=== PATIENT | female | born 1950 | race Caucasian/White ===

== ENCOUNTER 2024-12-26 14:01 | Outpatient (AMB) | payer MEDICARE, SELFPAY ==
--- NOTE | 2024-12-26 14:03 | MHC.OFFWIV ---
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 Allergies amoxicillin [AMOXICILLIN] Allergy (Unknown, Unverified 12/26/24 14:17) ANAPHYLAXIS clindamycin [CLINDAMYCIN] Allergy (Unknown, Unverified 12/26/24 14:17) NAUSEA & VOMITING codeine [CODEINE] Allergy (Unknown, Unverified 12/26/24 14:17) NAUSEA & VOMITING prochlorperazine [From COMPAZINE] Allergy (Unknown, Unverified 12/26/24 14:17) DRY MOUTH Do you need a note to return to daycare/school/sports/work: No HPI HPI Comments History of Present Illness Details History of Present Illness - The patient is a 74-year-old female presenting with a suspicious bite, concerned it could have been a tick. - The bite appeared on Wednesday with evaluation occurring on Wednesday. - The bite is not itchy or significantly painful, but the patient notices a presence at the site. - No recent activity in wooded areas; yard activity reported. - No signs suggestive of local infection were observed; patient reported she didn't actually see a tick attached. - Patient denies systemic symptoms such as fever or joint pain. - The patient is recovering from a recent rib injury. Physical Exam General: Cooperative, healthy appearing, comfortable, no acute distress and well developed Orientation: Patient oriented x3 Limitations: No limitations Head: Normal to inspection Ears: Hearing grossly normal bilaterally Nose: Normal External nose present Face and sinus: Normal facial exam Eyes: Appearance normal, both eyes and all related structures Neck: Normal visual inspection and Yes full ROM Respiratory: Normal respiratory effort and able to speak in complete sentences. Skin: right shoulder has 1cm area of erythema with central darkening, no erythema migrans rash, no warmth, no discharge noted Neuro: Patient oriented x3, gait normal Extremities: Normal to inspection Review of Systems Const All systems reviewed & are unremarkable except as noted in HPI and below Physical Exam Vital Signs: Last Vital Signs Pulse 65 12/26/24 14:18 BP 130/90 H 12/26/24 14:18 Pulse Ox 97 12/26/24 14:18 Oxygen Delivery Method Room Air 12/26/24 14:18 Assessment & Plan Assessment & Plan (1) Bug bite without infection: Code(s): W57.XXXA - Bitten or stung by nonvenomous insect and other nonvenomous arthropods, initial encounter Qualifiers: Encounter type: initial encounter Qualified Code(s): W57.XXXA - Bitten or stung by nonvenomous insect and other nonvenomous arthropods, initial encounter Plan: Plan - Administered prophylactic doxycycline 200 mg for possible tick bite. - Instructed to monitor for erythema migrans rash, fever, or joint pain. - Advised to seek further medical evaluation if systemic symptoms develop. Patient was informed and verbally consented to the use of an ambient scribe for clinic note documentation during this visit. Medications: New doxycycline hyclate 200 mg (2 x 100 mg) PO once 2 tabs 0RF tick bite ppx Coding Level of Care Code New Pt Level 3 (80754) Diagnoses Bug bite without infection, initial encounter W57.XXXA Encounter type: initial encounter
[2024-12-26 14:18] VITALS: BP 130/90; PULSE 65; O2SAT 97
--- OUTSIDE RECORDS SUMMARY | 2024-12-26 16:46 | XMS_ITS | Clinical Summary ---
Author Organization [facility] Address [address] [place] [phone] Phone Care Team Providers Care Industrial Sales Engineer Name Role Phone Tracee Chavez MD Primary Care Prov ider Allergies Active Allergy Reactions Criticality Noted Date Comments Amoxicillin Anaphylaxis High 10/08/2014 Clindamycin Hcl 09/30/2005 Codeine Nausea And Vomiting 12/26/2007 Other 09/30/2005 Medications aspirin 81 mg EC tablet 1 tab daily Active mirabegron (Myrbetriq) 50 mg tablet extended release 24 hr 24 hr tablet Take 1 tablet (50 mg total) by mouth 1 (one) time each day. 3 Active FLUoxetine (PROzac) 40 mg capsule TAKE 2 CAPSULES BY MOUTH DAILY 180 capsule 5 Active atorvastatin (LIPITOR) 40 mg tablet TAKE 1 TABLET BY MOUTH DAILY 90 tablet 1 5 Active traZODone (DESYREL) 100 mg tablet TAKE 1 TABLET BY MOUTH AT BEDTIME NEEDED FOR SLEEP 90 tablet 5 Active pantoprazole (PROTONIX) 20 mg EC tablet Take 1 tablet (20 mg total) by mouth 1 (one) time each day. 90 each 3 5 10/13/19 26 Active EPINEPHrine (EpiPen 2-David) 0.3 mg/0.3 mL injection Inject 0.3 mL as directed as needed (anaphylaxis). 1 each 1 5 Active amLODIPine (NORVASC) 5 mg tablet Take 1 tablet (5 mg total) by mouth. 5 Active diclofenac (VOLTAREN) 1 % topical gel Apply 4 g topically 2 (two) times a day. 100 g 2 5 Active lidocaine HCL 4 % adhesive patch,medicated Apply 1 patch topically 1 (one) time each day. For 12 hours and remove for 12 hours 20 patch 5 Active folic acid (FOLVITE) 1 mg tablet Take 1 tablet (1 mg total) by mouth. 5 Active thiamine HCl (VITAMIN B-1 ORAL) Take 100 mg by mouth. 5 02/04/20 25 Active Active Problems Problem Noted Date Diagnosed Date Common bile duct dilation 11/30/2024 Fibromyalgia 06/28/2024 Overview (06/28/2024): [place] [facility] [place] Primary insomnia 04/13/2024 Hepatic steatosis 02/25/2023 Overview (06/28/2024): US SOFT TISSUE ABDOMEN/BACK, LIMITED ABD Result Date: 02/17/2023 EXAM: Abdomen ultrasound limited. HISTORY: Elevated liver function tests. COMPARISON: 02/18/2018 FINDINGS: Exam limited by patient body habitus and also patient difficulty suspending respirations for imaging. Liver: Normal in size measuring 16.0 cm in craniocaudad extent. Chronic echogenic hepatic parenchyma. No significant interval change in geographic areas of relative hypoechogenicity adjacent to the gallbladder. No new mass detected. Gallbladder/Biliary Tree: Small amount of layering echogenic material in the gallbladder which likely represents sludge. No gallbladder wall thickening or pericholecystic fluid. No intra or extrahepatic biliary ductal dilatation. The common bile duct measures 0.6 cm. Pancreas: No abnormality in the visualized pancreas. Right kidney: Normal in size measuring 9.9 cm in craniocaudad extent. No hydronephrosis, focal lesions, or shadowing stones. Vasculature: Hepatopedal flow in the main portal vein. IMPRESSION IMPRESSION: Limited exam. Chronic abnormal hepatic parenchyma which is likely related to steatosis with areas of focal fatty sparing. Small amount of gallbladder sludge. POS [id number] Mild episode of recurrent ma nedra depressive disorder (CMS/HCC V24) 05/11/2019 Adjustment disorder with mixed anxiety and depre ssed mood 09/14/2018 Elevated glucose 12/21/2017 Female stress incontinence 07/30/2016 Thrombosed external hemorrhoid 09/26/2015 Panic disorder 10/23/2014 CKD (chronic kidney disease) stage 3, GFR 30-59 ml/min ([facility] V24, [facility] V28) 08/10/2014 Assessment & Plan (10/12/2024 12:00 PM EDT): Orders: Comprehensive metabolic panel; Future Lipid panel with reflex to direct LDL; Future Hyperlipidemia 08/24/2013 Vitamin D deficiency 01/25/2012 Osteoporosis 01/13/2012 Back pain 11/12/2008 GERD (gastroesophageal reflux disease) 7 Overview (06/28/2024): No esophagitis and no Levine's esophagus on upper GI endoscopy 2012. 3 cm hiatal hernia from 34-37 cm. Primary hypertension 04/13/2006 Assessment & Plan (10/12/2024 12:00 PM EDT): Bradycardia 02/08/2006 Overview (06/28/2024): Holter 03/04/06, Holter (-) lowest sinus glenn 39. no high grade arrythmia Coronary atherosclerosis of mash[place] coronary vess el 02/08/2006 Overview (06/28/2024): s/p stent 1999, RCA ECHO 2005: IMPRESSION: Normal left ventricular systolic function without specific wall motion abnormalities. Trace mitral regurgitation. Assessment & Plan (10/12/2024 12:00 PM EDT): Orders: Comprehensive metabolic panel; Future Lipid panel with reflex to direct LDL; Future Encounters Date Type Department Care Team Description 12/18/2024 1:45 PM EDT Consult General Surgery - [address] [place] [phone] Buster Villatoro MD Common bile duct dilation 11/30/2024 9:59 AM EDT - 11/30/2024 11:59 PM EDT Hospital Encounter Radiology Department - [address] [phone] Elevated liver enzymes Discharge Disposition: Home or Self Care 11/28/2024 Telephone Adult Medicine [address] [phone] Tracee Chavez MD faxed order ([facility] - #[id number], #[id number]) 11/21/2024 10:30 AM EDT Office Visit Adult Medicine [address] [phone] Tracee Chavez MD Hospital discharge follow-up (Primary Dx); Elevated liver enzymes; Hepatic steatosis; Rib injury; Other constipation; Oropharyngeal dysphagia; Primary hypertension 11/21/2024 Telephone Adult Medicine [address] [phone] Melony Max LPN Fitting for DME 11/15/2024 Telephone Adult Medicine [address] [phone] Tracee Chavez MD HOME HEALTH CERT 11/14/2024 Telephone Adult Medicine [address] [phone] Tracee Chavez MD faxed order ([facility] - #[id number]) 11/13/2024 Telephone Adult Medicine [address] [phone] Jessica Sousa MA [facility] 11/13/2024 Telephone Adult Medicine [address] [phone] Tracee Chavez MD vna 11/06/2024 Telephone Adult Medicine [address] [phone] Tracee Chavez MD VNA 11/06/2024 Telephone Adult Medicine [address] [place] [phone] Tracee Chavez MD Hospital Follow-up 10/31/2024 Lab Requisition [facility] - Main Lab [address] [facility] [place] [phone] Ruthy Nguyen NP Urinary tract infection, site not specified 10/25/2024 10:00 AM EDT Ancillary Procedure [facility] - [address] [place] [phone] Bilateral lower extremity edema 10/12/2024 11:30 AM EDT Office Visit Adult Medicine [facility] [address] [place] [phone] Tracee Chavez MD Encounter for annual general medical examination with abnormal findings in adult (Primary Dx); Primary hypertension; 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 (CMS/HCC V24); Recurrent major depressive disorder, in full remission (CMS/HCC V24); Stage 3a chronic kidney disease (CMS/HCC V24, CMS/HCC V28); Tremor; Decreased appetite; Advance care planning from Last 3 Months Immunizations Name Administration Dates Next Due Influenza trivalent, 0.5mL ( Fluad) 65yo and older 04/13/2024,06/03/2023,06/02/2022,04/22,04/25/2020,05/30/2019,05/05/2018 ,07/01/2017 Influenza trivalent, 0.5mL, preservative free (Fluarix; FluLaval; Fluzone) ages 6mo and older (Afluria) 3 years and older 03/30/2016,06/06/2015,04/13/2014,04/10,06/16/2012,06/14/2011,07/04/2010 ,04/05/2008,05/18/2007,06/27/2006,12/11/2004 Pneumococcal conjugate 13 va lent (Prevnar 13, PCV13) 2mo and older 07/01/2017 Pneumococcal polysaccharide 23 valent (Pneumovax 23) 2yo and older 08/25/2021 Td Tetanus diptheria (Tdvax) 7yo and older 03/18/2004 Td, Unspecified 03/18/2004 Tdap Tetanus diptheria acell ular pertussis (Boostrix; Adacel) 7yo and older 04/13/2024,01/13/2012 Zoster Live 06/16/2012 Surgical History Surgery Date Site/Laterality Comments OTHER SURGICAL HISTORY 1981 PROCEDURE: HISTORICAL TOTAL HYSTERECTOMY W/O BSO BREAST SURGERY 2013 Bilateral PROCEDURE: VT UNLISTED PROCEDURE BREAST; COMMENT: breast reduction BREAST BIOPSY Left PROCEDURE: BX BREAST; PERC NEEDLE CORE W/IMAG GUID; COMMENT: lt side, many yrs ago COLONOSCOPY 2013 PROCEDURE: HISTORICAL COLONOSCOPY; COMMENT: normal UPPER GASTROINTESTINAL ENDOSCOPY 2012 PROCEDURE: VT UPPER GI ENDOSCOPY PERFORMED; COMMENT: no esophagitis on PPI treatment; 3 cm HH. COLONOSCOPY 2001 PROCEDURE: HISTORICAL COLONOSCOPY; COMMENT: negative UPPER GASTROINTESTINAL ENDOSCOPY 01/31/2018 PROCEDURE: VT UPPER GI ENDOSCOPY PERFORMED; COMMENT: 3 cm HH; otherwise normal on PPI rx. BREAST BIOPSY Left PROCEDURE: BX BREAST; PERC NEEDLE CORE W/IMAG GUID; COMMENT: DENSE HYPOCELLULAR STROMAL FIBROSIS WITH FOCAL HEMOSIDERIN-LADEN Medical History Medical History Date Comments Coronary atherosclerosis of unspecified type of vessel, mash[place] or graft 02/08/2006 DX:Coronary atherosclerosis of unspecified type of vessel, mash[place] or graft; COMMENT: s/p stent 2000, RCA Other specified cardiac dysrhythmias(427.89) 02/08/2006 DX:Other specified cardiac dysrhythmias(427.89) Other specified cardiac dysrhythmias(427.89) 02/08/2006 DX:Other specified cardiac dysrhythmias(427.89); COMMENT: Holter 03/04/06, Holter 9-) lowest sinus glenn 39. no high grade arrythmia GERD (gastroesophageal reflu x disease) 05/19/2007 DX:GERD (gastroesophageal re flux disease) Back pain DX:Back pain; CO MMENT: followed by pain management, case Fibromyalgia DX:Fibromyalgia; COMMENT: [place] [facility] [place] Myofascial pain syndrome DX:Myof ascial pain syndrome; COMMENT: Dr. Horta [place] [facility] [place] Vitamin D deficiency 01/25/2012 DX:Vitamin D deficiency Panic disorder 10/23/2014 DX:Panic disorde r Osteoporosis 01/13/2012 DX:Osteoporosis Hypertension 04/13/2006 DX:Hypertension Hyperlipidemia 08/24/2013 DX:Hyperlipidemi a Depression, major, recurrent , in remission ([facility] V24) 07/05/2014 DX:Depression, major, recurr ent, in remission (HCC) CKD (chronic kidney disease) stage 3, GFR 30-59 ml/min (CMS/[facility] V24, CMS/[facility] V28) 08/10/2014 DX:CKD (chronic kidney disea se) stage 3, GFR 30-59 ml/min (HCC) History of other specified c onditions presenting hazards to health DX:History of other speci fied conditions presenting hazards to health; COMMENT: basal cell Hepatic steatosis 02/25/2023 DX:Hepatic get atosis; COMMENT: US SOFT TISSUE ABDOMEN/BACK, LIMITED ABD Result Date: 02/17/2023 EXAM: Abdomen ultrasound limited. HISTORY: Elevated liver function tests. COMPARISON: 02/18/2018 FINDINGS: Exam limited by patient body habitus and also patient difficulty suspending respirations for imaging. Liver: Normal in size measuring 16.0 cm in craniocaudad extent. Chronic echogenic hepatic paren* Family History Medical History Relation Name Comments Mental illness Father CABG age 76 Prostate cancer Father Heart attack Maternal Grandmother age 63 Lung cancer Mother Breast cancer Other pat cousin Heart attack Sister age 45, CABG ag e 53 Relation Name Status Comments Father (Age 82) heart prob lems, prostate ca Maternal Grandmother Mother (Age 80) heart prob lems, lung cancer Other pat cousin Sister Social History Tobacco Use Types Packs/Day Years Used Date Smoking Tobacco: Never Smokeless Tobacco: Never Tobacco Cessation:Counseling Given: Not Answered Alcohol Use Standard Drinks/Week Comments Yes 0 (1 standard drink = 0.6 oz pur e alcohol) Housing Instability Answer Date Recorde d Are you worried that in the next 2 months you may not have stable housing? No 10/12/2024 Food Access & Nutrition Answer Date Rec orded Do you have access to a vari ety of food including fruits and vegetables? Yes 10/12/2024 Access to Healthcare Answer Date Record ed Within the last 3 months, navi w many times did you visit the emergency department for your medical care? 0 10/12/2024 Health Literacy Answer Date Recorded How often do you need to hav e someone help you when you read instructions, pamphlets, or other written material from your doctor or pharmacy? Never 10/12/2024 Caregiver: How often do you need to have someone help you when you read instructions, pamphlets, or other written material from your doctor or pharmacy? Not on file 10/12/2024 Financial Risk Answer Date Recorded How hard is it for you to pa y for the very basics like food, housing, medical care, and air conditioning / heating? Not very hard 10/12/2024 Transportation Answer Date Recorded Has the lack of transportati on kept you from meetings, work, or from getting things needed for daily living? No Has the lack of transportati on kept you from medical appointments or from getting medications? No 10/12/2024 Social Isolation Answer Date Recorded How often do you feel lonely or isolated from th ose around you? Rarely 10/12/2024 Food Risk Answer Date Recorded Within the past 12 months we worried whether our food would run out before we got money to buy more. Never true 10/12/2024 Within the past 12 months th e food we bought just didn't last and we didn't have money to get more. Never true 10/12/2024 Dependent Care Answer Date Recorded Do you need help finding or paying for care for your loved ones. For example, child and youth program assistant or elderly care for an older adult? No 10/12/2024 Education Answer Date Recorded Do you think completing more education or training, like finishing a GED, going to college, or learning a trade, would be helpful for you? No 10/12/2024 Employment and Income Answer Date Recor ded During the last four weeks, have you been actively looking for work? No 10/12/2024 Living Situation Answer Date Recorded What is your living situation? 0 10/12/2024 Comments No Sex and Gender Information Value Date Recorded Sex Assigned at Not on file Legal Sex Female 7:23 PM EST Gender Identity Not on file Sexual Orientation Not on file Obstetrics History Last Filed Vital Signs Vital Sign Reading Time Taken Comments Blood Pressure 163/88 12/18/2024 1:38 PM EDT Pulse 65 12/18/2024 1:38 PM EDT Temperature 36.1 ??C (96.9 ??F) 11/21/2024 10:35 AM E DT Respiratory Rate 13 11/21/2024 10:35 AM EDT Oxygen Saturation - - Inhaled Oxygen Concentration - - Weight 48.5 kg (107 lb) 12/18/2024 1:38 PM EDT Height 156.2 cm (5' 1.5 ) 12/18/2024 1:38 PM EDT Body Mass Index 19.89 12/18/2024 1:38 PM EDT Plan of Treatment Upcoming Encounters Date Type Department Care Team (Late st Contact Info) Description 03/01/2025 2:20 PM EDT Appointment Radiology Department - [address] [phone] 04/17/2025 11:00 AM EDT Office Visit Adult Medicine East - [address] [phone] Tracee Chavez MD [address] [place] [address] [phone] Health Maintenance Due Date Last Done Comments Zoster Vaccines (2 of 3) 08/11/2012 06/16/2012 COVID-19 Vaccine ( season) 2024 06/23/2021, 10/14/2020, 09/23/2020 Depression Screening 10/12/2025 10/12/2024 Falls Risk Assessment 10/12/2025 10/12/2024 Medicare Annual Wellness Visit 10/12/2025 10/12/2024 Social Influencers of Health Screening 10/12/2025 10/12/2024 Hypertension/CHF/CAD Annual BMP Blood Test 11/30/2025 11/30/2024, 09/15/2023 Breast Cancer Screening 02/27/2026 02/28/20 24, 02/28/2024, 03/23/2023, Additional history exists Colorectal Cancer Screening: FIT-DNA (Cologuard) 06/21/2027 06/21/2024 Cholesterol Screening (Lipid Panel) 11/30/2029 11/30/2024, 02/02/2023 Osteoporosis Screening (Bone Density Screening) 02/22/2033 02/22/2023, 12/23/2016 DTaP,Tdap,and Td Vaccines (5 - Td or Tdap) 04/13/2034 04/13/2024, 01/13/2012, 03/18/2004, Additional history exists Hepatitis C Screening Completed 04/04/2013 Pneumococcal Vaccine: 50+ Years Completed 08/25/2021, 07/01/2017 RSV Immunization Adult Patients Completed 07/09/2023 Influenza Vaccine Completed 04/13/2024, , 06/02/2022, Additional history exists HIB Vaccines Aged Out No longer eligi ble based on patient's age to complete this topic HPV Vaccines Aged Out No longer eligi ble based on patient's age to complete this topic Hepatitis A Vaccines Aged Out No long er eligible based on patient's age to complete this topic Hepatitis B Vaccines Aged Out No long er eligible based on patient's age to complete this topic IPV Vaccines Aged Out No longer eligi ble based on patient's age to complete this topic MMR Vaccines Aged Out No longer eligi ble based on patient's age to complete this topic Meningococcal ACWY Vaccine Aged Out N o longer eligible based on patient's age to complete this topic Meningococcal B Vaccine Aged Out No l onger eligible based on patient's age to complete this topic RSV Immunization Patients Under 20 months Aged Out No longer eligible based on patient's age to complete this topic Varicella Vaccines Aged Out No longer eligible based on patient's age to complete this topic Procedures Procedure Name Priority Date/Time Associated Diagnosis Comments COMPREHENSIVE METABOLIC PANEL Routine 11/30/2024 10:26 AM EDT Tremor Stage 3a chronic kidney disease (CMS/HCC V24, CMS/HCC V28) 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 (CMS/HCC V24) LIPID PANEL WITH REFLEX TO DIRECT LDL Routine 11/30/2024 10:26 AM EDT Tremor Stage 3a chronic kidney disease (CMS/HCC V24, CMS/HCC V28) 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 (CMS/HCC V24) US ABDOMEN LIMITED Routine 11/30/2024 10 :19 AM EDT Elevated liver enzymes BACTERIAL IDENTIFICATION AND SUSCEPTIBILITY, AEROBIC Routine 10/30/2024 12:00 AM EDT Urinary tract infection, site not specified VAS US DUPLEX LOWER EXT VENOUS INSUFFICIENCY BILATERAL Routine 10/25/2024 10:48 AM EDT Bilateral lower extremity edema EXTERNAL COLOGUARD (FIT-DNA) REPORT 06/21/2024 SCREENING MAMMOGRAPHY BI 2-VIEW BREAST INC CAD Routine 02/28/2024 1:23 PM EDT Encounter for screening mammogram for malignant neoplasm of breast DXA BONE DENSITY STUDY 1+ SITS AXIAL SKEL Routine 02/22/2023 2:57 PM EDT Asymptomatic menopausal state HEPATITIS C SCREENING Routine 04/04/2013 from Last 3 Months or Most Recently Relevant to Health Maintenance Results * (ABNORMAL) Lipid panel with reflex to direct LDL (11/30/2024 10:26 AM EDT) Cholesterol 253(H) 0 - 200 mg/dL LAB CHEMISTRY METHOD 11/30/2024 1:[address] [facility] Triglycerides 175(H) 0 - 150 mg/dL LAB CHEMISTRY METHOD 11/30/2024 1:[address] [facility] HDL 30(L) >=40 mg/dL LAB CHEMISTRY METHOD 11/30/2024 1:[address] [facility] LDL Calculated 188(H) 0 - 100 mg/dL LAB CHEMISTRY METHOD 11/30/2024 1:[address] [facility] VLDL Cholesterol Richard 35 mg/dL LAB CHEMISTRY METHOD 11/30/2024 1:[address] [facility] Non HDL Chol. (LDL+VLDL) 223(H) <145 mg/dL LAB CHEMISTRY METHOD 11/30/2024 1:[address] [facility] Chol/HDL Ratio 8.4(H) 0.0 - 4.4 LAB CHEMISTRY METHOD 11/30/2024 1:[address] [facility] Blood Venous blood specimen / Unknown Venipuncture / Unknown 11/30/2024 10:26 AM EDT 11/30/2024 10:26 AM EDT us Tracee Chavez MD LAB BLOOD ORDERABL ES Final Result [facility] [address] [place] [address], * (ABNORMAL) Comprehensive metabolic panel (11/30/2024 10:26 AM EDT) Sodium 141 133 - 145 mmol/L LAB CHEMISTRY METHOD 11/30/2024 1:[address] [facility] Potassium 4.5 3.5 - 5.5 mmol/L LAB CHEMISTRY METHOD 11/30/2024 1:[address] [facility] Chloride 105 96 - 110 mmol/L LAB CHEMISTRY METHOD 11/30/2024 1:[address] [facility] CO2 27 21 - 32 mmol/L LAB CHEMISTRY METHOD 11/30/2024 1:[address] [facility] Anion Gap 9 3 - 11 LAB CHEMISTRY METHOD 11/30/2024 1:[address] [facility] Glucose 109(H) 70 - 100 mg/dL LAB CHEMISTRY METHOD 11/30/2024 1:[address] [facility] BUN 22 5 - 25 mg/dL LAB CHEMISTRY METHOD 11/30/2024 1:[address] [facility] Creatinine 1.03 0.50 - 1.10 mg/dL LAB CHEMISTRY METHOD 11/30/2024 1:[address] [facility] eGFR 58(L) >=60 mL/min/1. 73m2 LAB CHEMISTRY METHOD 11/30/2024 1:[address] [facility] Comment:Calculation based on the Chronic Kidney Disease Epidemiology Collaboration (CKD-EPI) equation refit without adjustment for race. BUN/Creatinine Ratio 21.4 LAB CHEMISTRY METHOD 11/30/2024 1:25 PM EDT [facility] Calcium 10.3 8.5 - 10.5 mg/dL LAB CHEMISTRY METHOD 11/30/2024 1:25 PM T [facility] AST (SGOT) 133(H) 10 - 42 unit/L LAB CHEMISTRY METHOD 11/30/2024 1:25 PM T [facility] ALT (SGPT) 125(H) 10 - 60 unit/L LAB CHEMISTRY METHOD 11/30/2024 1:25 PM EDT [facility] Alkaline Phosphatase 197(H) 42 - 121 unit/L LAB CHEMISTRY METHOD 11/30/2024 1:[address] [facility] Total Protein 7.3 6.0 - 8.0 g/dL LAB CHEMISTRY METHOD 11/30/2024 1:25 PM T [facility] Albumin 3.7 3.2 - 5.0 g/dL LAB CHEMISTRY METHOD 11/30/2024 1:25 PM T [facility] Total Bilirubin 0.5 0.0 - 1.4 mg/dL LAB CHEMISTRY METHOD 11/30/2024 1:[address] [facility] Blood Venous blood specimen / Unknown Venipuncture / Unknown 11/30/2024 10:26 AM EDT 11/30/2024 10:26 AM EDT us Tracee Chavez MD LAB BLOOD ORDERABL ES Final Result [facility] [address] [place] [address], * US Abdomen Limited (11/30/2024 10:19 AM EDT) Anatomical Region Laterality Modality Body Ultrasound 11/30/2024 3:52 PM EDT Impressions 11/30/2024 3:59 PM EDT Small amount of gallbladder sludge. ??New dilatation of the common bile duct measuring up to 1.0 cm. ??Suggest MRCP to assess for an obstructing process. POS [id number] -------- FINAL REPORT -------- Dictated By: Arlet Howard Dictated Date: 11/30/2024 15:52 ET Assigned Physician: Arlet Howard Reviewed and Electronically Signed By: Arlet Howard Signed Date: 11/30/2024 15:59 ET Workstation ID: [id number] Transcribed By: Self Edit Transcribed Date: 11/30/2024 15:52 ET Narrative 11/30/2024 3:59 PM EDT EXAM: Abdomen ultrasound, limited HISTORY: Elevated liver enzymes. COMPARISON: ??02/17/2023 FINDINGS: Liver: Normal in size measuring 16.6 cm in craniocaudad extent. ??Parenchymal echotexture appears within normal limits and is no longer echogenic. ??No mass detected. Gallbladder/Biliary Tree: Small amount of layering echogenic material in the gallbladder likely represents sludge. ??No gallbladder wall thickening or pericholecystic fluid. No intrahepatic biliary ductal dilatation. The common bile duct is now dilated measuring up to 1.0 cm. Pancreas: No abnormality in the visualized pancreas, portions are obscured by bowel gas. Right kidney: Normal in size measuring 9.3 cm in craniocaudad extent. ??No hydronephrosis, focal lesions, or shadowing stones. Vasculature: Hepatopedal flow in the main portal vein. Procedure Note Arlet Howard MD - 11/30/2024 EXAM: Abdomen ultrasound, limited HISTORY: Elevated liver enzymes. COMPARISON: 02/17/2023 FINDINGS: Liver: Normal in size measuring 16.6 cm in craniocaudad extent.Parenchymal echotexture appears within normal limits and is no longerechogenic. No mass detected. Gallbladder/Biliary Tree: Small amount of layering echogenic material inthe gallbladder likely represents sludge. No gallbladder wall thickeningor pericholecystic fluid. No intrahepatic biliary ductal dilatation. Thecommon bile duct is now dilated measuring up to 1.0 cm. Pancreas: No abnormality in the visualized pancreas, portions are obscuredby bowel gas. Right kidney: Normal in size measuring 9.3 cm in craniocaudad extent. Nohydronephrosis, focal lesions, or shadowing stones. Vasculature: Hepatopedal flow in the main portal vein. IMPRESSION: Small amount of gallbladder sludge. New dilatation of the common bileduct measuring up to 1.0 cm. Suggest MRCP to assess for an obstructingprocess. POS [id number] -------- FINAL REPORT -------- Dictated By: Arlet Howard Dictated Date: 11/30/2024 15:52 ET Assigned Physician: Arlet Howard Reviewed and Electronically Signed By: Arlet Howard Signed Date: 11/30/2024 15:59 ET Workstation ID: [id number] Transcribed By: Self Edit Transcribed Date: 11/30/2024 15:52 ET us Tracee Chavez MD IMG US PROCEDURES Final Result * (ABNORMAL) Bacterial identification and susceptibility, aerobic (10/30/2024 12:00 AM EDT) Culture, Bacterial ID and Sensitivity Escherichia coli(A) GIDEON 11/01/2024 8:46 AM EDT [facility] Other Urine specimen from urethra / Unknown 10/30/2024 10/31/2024 9:55 AM EDT Narrative Organism Antibiotic Method Susceptibility Escherichia coli Amoxicillin/Clavulanate GIDEON <=2 ug/ml: Susceptible Escherichia coli Ampicillin/Sulbactam GIDEON <=2 ug/ml: Susceptible Escherichia coli Piperacillin/Tazobactam GIDEON <=4 ug/ml: Susceptible Escherichia coli Cefazolin (Urine) GIDEON <=1 ug/ml: Susceptible Escherichia coli Cefoxitin GIDEON <=4 ug/ml: Susceptible Escherichia coli Ceftazidime GIDEON <=0.5 ug/ml: Susceptible Escherichia coli Ceftriaxone GIDEON <=0.25 ug/ml: Susceptible Escherichia coli Cefepime GIDEON <=0.12 ug/ml: Susceptible Escherichia coli Meropenem GIDEON <=0.25 ug/ml: Susceptible Escherichia coli Amikacin GIDEON 2 ug/ml: Susceptible Escherichia coli Gentamicin GIDEON <=1 ug/ml: Susceptible Escherichia coli Ciprofloxacin GIDEON <=0.06 ug/ml: Susceptible Escherichia coli Levofloxacin GIDEON <=0.12 ug/ml: Susceptible Escherichia coli Nitrofurantoin GIDEON <=16 ug/ml: Susceptible Escherichia coli Trimethoprim/Sulfamethoxazole GIDEON <=20 ug/ml: Susceptible Ruthy Nguyen MICROBIOLOGY INSTRUCTOR LAB MICROBIOLOGY - GENERA L ORDERABLES Final Result [facility] [address] [place] [address], * Vascular US duplex lower extremity venous insufficiency bilateral (10/25/2024 10:48 AM EDT) Left GSK jeanine 0.31 cm CV VAS LAB Left GSDC jeanine 0.18 cm CV VAS LAB Left GSMT jeanine 0.31 cm CV VAS LAB Left GSPC jeanine 0.22 cm CV VAS LAB Left GSPT jeanine 0.32 cm CV VAS LAB Left SFJ Diameter 0.54 cm CV VAS LAB Left SSMC jeanine 0.27 cm CV VAS LAB Left SSPC jeanine 0.33 cm CV VAS LAB Right GSK jeanine 0.41 cm CV VAS LAB Right GSDC jeanine 0.15 cm CV VAS LAB Right GSMT jeanine 0.26 cm CV VAS LAB Right GSPC jeanine 0.33 cm CV VAS LAB Right GSPT jeanine 0.26 cm CV VAS LAB Right SFJ Diameter 0.52 cm CV VAS LAB Right SSMC jeanine 0.22 cm CV VAS LAB Right SSPC jeanine 0.27 cm CV VAS LAB Right GSMT reflux 1,767 ms CV VAS LAB Right GSPC reflux 767 ms CV VAS LAB Left GSDC reflux 3,000 ms CV VAS LAB Anatomical Region Laterality Modality Vascular, Abdomen Ultrasound Narrative 10/30/2024 4:06 PM EDT RIGHT: 1. There is no evidence of a DVT in the right lower extremity 2. The SFJ, femoral vein, popliteal vein and SSV are competent 3. The GSV has clinically significant reflux as described below. 4. ??There is also a branch of the GSV with clinically significant reflux as described below. LEFT: 1. ??There is no evidence of a DVT in the left lower extremity. 2. The SFJ, femoral vein, popliteal vein and SSV are competent 3. ??The GSV has clinically significant reflux as described below. Right Lower Venous No evidence of deep vein thrombosis in the common femoral, deep femoral, proximal femoral, mid femoral, distal femoral, popliteal, greater saphenous, small saphenous, posterior tibial and peroneal veins of the right leg. The vessels showed compressibility. Interrogation showed phasic and spontaneous Doppler signals. Right Venous Insufficiency Duplex The exam was performed with the patient in reverse Trendelenburg. Refluxing right greater saphenous branch: 0.22cm diameter upper calf= 4060ms Left Lower Venous No evidence of deep vein thrombosis in the common femoral, deep femoral, proximal femoral, mid femoral, distal femoral, popliteal, greater saphenous, small saphenous, posterior tibial and peroneal veins of the left leg. The vessels showed compressibility. Interrogation showed phasic and spontaneous Doppler signals. Left Venous Insufficiency Duplex The exam was performed with the patient in reverse trendelenburg. Beef Selector Details A casillas scale, color and doppler analysis ultrasound was performed. During the study longitudinal and transverse views were obtained. Pulsed wave doppler was performed. us Noemy GONZALEZ CV VASCULAR PROCEDURES Final R esult * External Cologuard (FIT-DNA) Report (06/21/2024) us Provider Onbase MD LAB BODY FLUIDS AND STOOLS OR DERABLES Final Result * SCREENING MAMMOGRAPHY BI 2-VIEW BREAST INC CAD (02/28/2024 1:23 PM EDT) Anatomical Region Laterality Modality Radiographic Tammy ging 02/22/2023 3:14 PM EDT Narrative 02/29/2024 9:11 AM EDT This is a summary report. The complete report is available in the patient's medical record. If you cannot access the medical record, please contact the sending organization for a detailed fax or copy. History: Patient is status post left breast excisional biopsy in May 2023. ??Ultrasound-guided needle core biopsy on March 23, 2023 was thought to be discordant. ??Pathology results of the excisional biopsy were benign. Study: SCREENING MAMMOGRAPHY BI 2-VIEW BREAST INC CAD Technique: Bilateral full-field digital screening mammography is obtained and read in conjunction with computer aided detection. ??Tomosynthesis as well as 2D C-View imaging were obtained. Comparison: Comparison made to multiple priors, most recent February 22, 2023, and most remote January 31, 2013. Breast composition: There are scattered areas of fibroglandular density. Right breast: No suspicious masses, suspicious calcifications or other abnormalities are seen. Left breast: Postoperative changes. ??No suspicious masses, suspicious calcifications or other abnormalities are seen. IMPRESSION: Impression: Bilateral breasts: Benign, no specific mammographic evidence of malignancy. ??Normal interval follow-up is recommended in 12 months. BI-RADS: Category 2: Benign Procedure Note Sarah Helms MD - 05/03/2024 This is a summary report. The complete report is available in thepatient's medical record. If you cannot access the medical record, pleasecontact the sending organization for a detailed fax or copy. History: Patient is status post left breast excisional biopsy in May2023. Ultrasound-guided needle core biopsy on March 23, 2023 wasthought to be discordant. Pathology results of the excisional biopsy werebenign. Study: SCREENING MAMMOGRAPHY BI 2-VIEW BREAST INC CAD Technique: Bilateral full-field digital screening mammography is obtainedand read in conjunction with computer aided detection. Tomosynthesis aswell as 2D C-View imaging were obtained. Comparison: Comparison made to multiple priors, most recent February, and most remote January 31, 2013. Breast composition: There are scattered areas of fibroglandular density. Right breast: No suspicious masses, suspicious calcifications or otherabnormalities are seen. Left breast: Postoperative changes. No suspicious masses, suspiciouscalcifications or other abnormalities are seen. IMPRESSION: Impression: Bilateral breasts: Benign, no specific mammographic evidence ofmalignancy. Normal interval follow-up is recommended in 12 months. BI-RADS: Category 2: Benign Hattie GONZALEZ IMG XR PROCEDURES Final Result * DXA BONE DENSITY STUDY 1+ SITS AXIAL SKEL (02/22/2023 2:57 PM EDT) Anatomical Region Laterality Modality Bone Densitometr y 06/02/2022 11:2 4 AM EST Narrative 02/23/2023 4:25 PM EDT BONE DENSITY SCAN (DEXA): FINDINGS: Lumbar Spine T-score is -2.5. ?? (SD relative to 20-29 y/o adult) Z-score is -0.3. ??(SD relative to age matched peers) This is considered osteoporosis by WHO criteria. Left Hip T-score is -2.0. Z-score is -0.1. This is considered osteopenia by WHO criteria. Comparison exam(s): 12/23/2016. ??7.1% loss of left hip bone mineral density which is statistically significant at the 95% confidence level. ??No statistically significant change in lumbar spine bone mineral density. IMPRESSION: IMPRESSION: ?? Osteoporosis by WHO criteria. The [facility] Department of Internal Medicine recommends using National Osteoporosis Foundation (NOF) guidelines in treatment decisions related to osteoporosis. NOF guidelines suggest considering treatment for postmenopausal women and men aged 50 or older presenting with the following: History of hip or vertebral fracture. T-score = -2.5 (DXA) at the femoral neck, total hip, or spine, after appropriate evaluation to exclude secondary causes. Low bone mass (T-score between -1.0 and -2.5 at the femoral neck or spine) AND a 10-year probability of a hip fracture = 3% OR a 10-year probability of a major osteoporosis-related fracture = 20% based on the [place]-adapted WHO algorithm Please note that all treatment decisions require clinical judgment and consideration of individual patient factors, including patient preferences, co-morbidities, previous drug use, risk factors not captured in the FRAX model (e.g., frailty, falls, vitamin D deficiency, increased bone turnover, interval significant decline in bone density) and possible under- or over-estimation of fracture risk by FRAX. Optional alternative screening schedule based on sydney Guerra., [facility] August 06, 2011 for patients with osteopenia (based on hip BMD T-score) is as follows: * ??advanced osteopenia (T scores -2.00 to -2.49), BMD testing every year * ??moderate osteopenia (T scores -1.50 to -1.99), BMD testing every 5 years mild osteopenia or normal BMD (T scores -1.50 and higher), BMD testing every 15 years Procedure Note Arlet Howard MD - 08/24/2023 BONE DENSITY SCAN (DEXA): FINDINGS: Lumbar Spine T-score is -2.5. (SD relative to 20-29 y/o adult) Z-score is -0.3. (SD relative to age matched peers) This is considered osteoporosis by WHO criteria. Left Hip T-score is -2.0. Z-score is -0.1. This is considered osteopenia by WHO criteria. Comparison exam(s): 12/23/2016. 7.1% loss of left hip bone mineraldensity which is statistically significant at the 95% confidence level. No statisticallysignificant change in lumbar spine bone mineral density. IMPRESSION: IMPRESSION: Osteoporosis by WHO criteria. The [facility] Department of Internal Medicine recommendsusing National Osteoporosis Foundation (NOF) guidelines in treatment decisions related toosteoporosis. NOF guidelines suggest considering treatment for postmenopausal women and menaged 50 or older presenting with the following: History of hip or vertebral fracture. T-score = -2.5 (DXA) at the femoral neck, total hip, or spine, afterappropriate evaluation to exclude secondary causes. Low bone mass (T-score between -1.0 and -2.5 at the femoral neck or spine)AND a 10-year probability of a hip fracture = 3% OR a 10-year probability of a majorosteoporosis-related fracture = 20% based on the [place]-adapted WHO algorithm Please note that all treatment decisions require clinical judgment andconsideration of individual patient factors, including patient preferences, co- morbidities,previous drug use, risk factors not captured in the FRAX model (e.g., frailty, falls, vitaminD deficiency, increased bone turnover, interval significant decline in bone density) andpossible under- or over-estimation of fracture risk by FRAX. Optional alternative screening schedule based on sydney Guerra., [facility] for patients with osteopenia (based on hip BMD T-score) is as follows: * advanced osteopenia (T scores -2.00 to -2.49), BMD testing every year * moderate osteopenia (T scores -1.50 to -1.99), BMD testing every 5years mild osteopenia or normal BMD (T scores -1.50 and higher), BMD testingevery 15 years us Hattie GONZALEZ IMG DXA PROCEDURES Final Result * Hepatitis C Screening (04/04/2013) Hepatitis C Screening abstracted us Historical Provider HEALTH MAINTENANCE Final Result from Last 3 Months or Most Recently Relevant to Health Maintenance Insurance [employer] Care Teams Industrial Sales Engineer Relationship Specialty Start Date End Date Tracee Chavez MD [address] [place] [id number] PCP - General Internal Medicine 03/11/22
== END 2024-12-26 16:02 | disposition home or self-care (01) ==
PROVIDERS: PCP Internal Medicine; Visit Provider Physician Assistant
DX: T63.481A Toxic effect of venom of other arthropod, accidental (unintentional), initial encounter (principal)

== ENCOUNTER → 2024-12-26 14:01 | Outpatient (BNVA) | payer MEDICARE, SELFPAY | PROVIDERS: PCP Internal Medicine; Visit Provider Physician Assistant | DX: S40.261A Insect bite (nonvenomous) of right shoulder, initial encounter (principal); W57.XXXA Bitten or stung by nonvenomous insect and other nonvenomous arthropods, initial encounter; Y93.9 Activity, unspecified; Y92.9 Unspecified place or not applicable; Y99.9 Unspecified external cause status | CPT/HCPCS: 99202 ==

== ENCOUNTER 2025-01-13 12:58 | Outpatient (REF) | payer MEDICARE, SELFPAY ==
--- NOTE | ~2025-01-13 | XR_ITS ---
CLINICAL HISTORY: pain 1 view abdomen Comparison: None provided Findings: Surgical clips project over the pelvis. No pneumoperitoneum or pneumatosis. Normal stool quantity. No abnormal calcifications. No acute fractures. IMPRESSION: The bowel gas pattern is within normal limits This document has been electronically signed by: Scottie Mullins MD on 01/13/2025 15:04:56
== END 2025-01-13 12:59 | disposition home or self-care (01) ==
LOC: HO.HMGCX 12:58
PROVIDERS: PCP Internal Medicine; Visit Provider Family Medicine
DX: Z00.01 Encounter for general adult medical examination with abnormal findings (principal); R10.13 Epigastric pain; R10.11 Right upper quadrant pain; R11.2 Nausea with vomiting, unspecified
CPT/HCPCS: 74018; 99212

== ENCOUNTER 2025-01-13 12:58 | Outpatient (AMB) | payer MEDICARE, SELFPAY ==
--- OUTSIDE RECORDS SUMMARY | 2025-01-13 13:00 | XMS_ITS | Encounter Summary ---
Author Organization [facility] Address [address] [place] [address] Care Team Providers Care Steno Typist Name Role Phone Leonardo Gurrola MD Primary Care Provider Tracee Penaloza MD Primary Care Prov ider Reason for Visit * Reason Onset Date Comments Annual Wellness Outreach 05/12/2021 Encounter Details Date Type Department Care Team Description 05/12/2021 Telephone Adult Medicine [address] [address] Ravi Lazo DO Annual Wellness Outreach Social History Tobacco Use Types Packs/Day Years Used Date Smoking Tobacco: Never Smokeless Tobacco: Never Alcohol Use Standard Drinks/Week Comments Yes 0 (1 standard drink = 0.6 oz pur e alcohol) wine/ 2-3x month Sex Assigned at Date Recorded Not on file Job Start Date Occupation Industry Not on file Not on file Not on file COVID-19 Exposure Response Date Recorded In the last month, have you been in contact with someone who was confirmed or suspected to have Coronavirus / COVID-19? No / Unsure 05/05/2021 1:20 PM EDT documented as of this encounter Miscellaneous Notes * Telephone Encounter - Gwendolyn Estrada - 05/12/2021 3:38 PM EDT Ms. Giang was contacted by telephone. First attempt pt declined stated not thank you. documented in this encounter Plan of Treatment Not on file documented as of this encounter Visit Diagnoses Not on filedocumented in this encounter Care Teams Steno Typist Relationship Specialty Start Date End Date Leonardo Gurrola MD PCP - General Internal Medicine 10/16/11 03/10/22 Tracee Diaz MD [address] [place] [id number] PCP - General Internal Medicine 03/11/22 documented as of this encounter
--- NOTE | 2025-01-13 13:01 | AM.OFFWIN_ITS ---
Intake Vital Signs 01/13/25 13:06 Height 5 ft 1 in BMI Reason not done Patient refused/unable BP 122/80 Blood Pressure Location Lt brachial Position Sitting Pulse 68 Pulse Source Pulse Oximeter Temp 98.1 F Temp Source Oral Pulse Oximetry (%) 98 Oxygen Delivery Method Room Air Intake Visit Reasons: EP ?Stomach bug Allergies amoxicillin (AMOXICILLIN) Allergy (Unknown, Verified 01/13/25 13:01) ANAPHYLAXIS clindamycin (CLINDAMYCIN) Allergy (Unknown, Verified 01/13/25 13:01) NAUSEA & VOMITING codeine (CODEINE) Allergy (Unknown, Verified 01/13/25 13:01) NAUSEA & VOMITING prochlorperazine (From COMPAZINE) Allergy (Unknown, Verified 01/13/25 13:01) DRY MOUTH Medication List - Last Reconciled 01/13/25 by Jose Rodriguez MD amlodipine 5 mg PO DAILY atorvastatin 40 mg PO DAILY estradiol 0.01%(0.1mg/gram) vaginal fluoxetine mg PO hydrochlorothiazide 25 mg PO DAILY mirabegron ER 50 mg PO DAILY ondansetron 4 mg PO Q8H PRN 4 days pantoprazole 20 mg PO DAILY polyethylene glycol 3350 (Miralax) 17 grams PO DAILY 14 days trazodone 100 mg PO BEDTIME Do you need a note to return to daycare/school/sports/work: No HPI EP ?Stomach bug HPI Details Patient has complaints of epigastric and right upper quadrant abdominal discomfort as well as nausea and vomiting. Nausea and vomiting occur after eating passing gas but not much stool no fevers or chills Review of Systems Const Details: some weight loss due to nausea and poor appetite Denies chills, Denies fatigue, Denies fever(s), Denies headache(s) and Denies weakness ENT Denies dizziness and Denies headache(s) Card Denies chest pain, Denies lightheadedness, Denies dyspnea and Denies other (Palpitations) Resp Denies cough, Denies dyspnea, Denies wheezing and Denies other ( shortness of breath) Musc Denies numbness and Denies tingling Neuro Denies dizziness, Denies headache(s), Denies numbness, Denies tingling, Denies paresthesias and Denies weakness Psych Denies anxiety and Denies depression Endo Denies fatigue Aller/Immun Denies wheezing Physical Exam Vital Signs: Last Vital Signs Temp 98.1 F 01/13/25 13:06 Pulse 68 01/13/25 13:06 BP 122/80 01/13/25 13:06 Pulse Ox 98 01/13/25 13:06 Oxygen Delivery Method Room Air 01/13/25 13:06 Const General: no acute distress and well developed Nutritional Appearance: well nourished Orientation/consciousness: patient oriented x3 HEENT Head: Yes normocephalic and Yes atraumatic Eyes General: appearance normal, both eyes and all related structures Pupils: Equal, round and reactive pupils present EOM: EOMs intact bilaterally Resp Effort & Inspection: normal respiratory effort Auscultation: clear to auscultation bilaterally Cardio Rate: regular rate Rhythm: regular rhythm Heart sounds: S1 normal heart sound present, S2 normal heart sound present, no gallops, no murmurs and no rubs GI Other: mild abdominal discomfort at right upper quadrant Neuro General: patient oriented x3 and gait normal Cranial nerves: Yes Equal, round and reactive pupils present Psych Affect: normal affect Assessment & Plan Assessment & Plan (1) Abdominal discomfort: Code(s): R10.9 - Unspecified abdominal pain Plan: Abdominal discomfort and nausea associated with eating. Also decreased bowel movements but still passing gas possible significant constipation possible chronic cholecystitis advised bowel rest regimen with clear liquid diet today and advance diet as tolerated tomorrow. hydrate well Will give her a script for MiraLax and ondansetron checking CBC, lipase, CMP follow-up with primary care physician (2) Nausea: Code(s): R11.0 - Nausea Plan: As above Plan Discussed with patient that although we are addressing her acute issues of abdominal discomfort and nausea today, she would need to follow-up with her primary care physician for further workup and treatment. Orders: Orders XR KUB 01/13/25 R10.9 - Unspecified abdominal pain, R11.0 - Nausea Complete Blood Count Auto Diff 01/13/25 R10.9 - Unspecified abdominal pain, Z00.00 - Encounter for general adult medical examination without abnormal findings Comprehensive [place]. Panel Fast 01/13/25 R10.9 - Unspecified abdominal pain, Z00.00 - Encounter for general adult medical examination without abnormal findings Lipase 01/13/25 R10.9 - Unspecified abdominal pain Medications: New polyethylene glycol 3350 (Miralax) 17 grams PO DAILY 14 ea 0RF 14 days ondansetron 4 mg PO Q8H PRN 12 tabs 0RF nausea and vomiting 4 days Coding Level of Care Code Est Pt Level 3 (82549) Diagnoses Abdominal discomfort R10.9 Nausea R11.0
[2025-01-13 13:06] VITALS: BP 122/80; PULSE 68; TEMP 36.7; O2SAT 98
== END 2025-01-13 14:38 | disposition home or self-care (01) ==
PROVIDERS: PCP Internal Medicine; Visit Provider Family Medicine
DX: R10.9 Unspecified abdominal pain (principal); R11.0 Nausea

== ENCOUNTER → 2025-01-13 13:44 | Outpatient (BNV) | payer MEDICARE, SELFPAY | PROVIDERS: PCP Internal Medicine; Visit Provider Radiology Diagnostic Radiology | DX: R10.84 Generalized abdominal pain (principal) | CPT/HCPCS: 74018 ==

== ENCOUNTER 2025-01-15 10:47 | Outpatient (REF) | payer MEDICARE, SELFPAY ==
[2025-01-15 13:13] LABS: MANUAL DIFF FLAG NO
[2025-01-15 13:23] LABS: Basophils Absolute Auto 0.1 X10*3/uL (0.0-0.2); Basophils Percent Auto 0.9 % (0-2); Eosinophils Absolute Auto 0.2 X10*3/uL (0.0-0.4); Hematocrit 41.8 % (37.0-47.0); Hemoglobin 13.7 g/dl (12.0-16.0); Imm Gran Abs Auto 0.03 X10*3/uL (0.00-0.03); Imm Gran Pct Auto 0.3 % (0.0-0.4); Lymphocytes Absolute Auto 2.3 X10*3/uL (1.2-4.9); Lymphocytes Percent Auto 26.7 % (20-40); Mean Corpuscular HGB Conc 32.8 g/dl (31.0-35.0); Mean Corpuscular Hemoglobin 30.6 pg (27.0-33.0); Mean Corpuscular Volume 93.3 fL (80.0-98.0); Mean Platelet Volume 11.9 fL (9.4-12.3); Monocytes Absolute Auto 0.6 X10*3/uL (0.1-1.2); Monocytes Percent Auto 6.7 % (2-11); Neutrophils Absolute Auto 5.5 x10*3/uL (2.0-8.3); Neutrophils Percent Auto 63.4 % (45-73); Platelet Count 274 X10*3/uL (160-400); Red Blood Count 4.48 X10*6/uL (4.20-5.50); Red Cell Distribution Width 13.2 % (11.0-16.0); White Blood Count 8.6 X10*3/uL (4.8-10.8)
[2025-01-15 13:50] LABS: Alanine Aminotransferase 50 U/L (0-31); Albumin Level 4.5 g/dL (3.5-5.0); Alkaline Phosphatase 169 U/L (39-117); Anion Gap 12 (12-20); Aspartate Amino Transferase 83 U/L (5-31); Bilirubin Total 0.4 mg/dL (0.0-1.0); Blood Urea Nitrogen 24 mg/dL (9-16); Carbon Dioxide 24 mmol/L (22-29); Chloride 107 mmol/L (96-108); Estimated Glomerular Filt Rate 45; Glucose Fasting 141 mg/dL (60-99); Lipase 7 U/L (8-78); Potassium 4.4 mmol/L (3.3-5.1); Sodium 139 mmol/L (135-145); Total Protein 7.6 g/dL (6.5-8.0)
== END 2025-01-15 10:48 | disposition home or self-care (01) ==
LOC: HO.HMGCLDS 10:47
PROVIDERS: PCP Family Medicine; Visit Provider Family Medicine
DX: Z00.00 Encounter for general adult medical examination without abnormal findings (principal); R10.9 Unspecified abdominal pain
CPT/HCPCS: 36415; 80053; 83690; 85025

== ENCOUNTER 2025-04-20 19:13 | Inpatient (IN) | payer MEDICARE, SELFPAY ==
--- OUTSIDE RECORDS SUMMARY | 2025-04-17 11:00 | XMS_ITS | Encounter Summary ---
Author Organization [facility] Address [address] [place] [address] Care Team Providers Care Record Tester Name Role Phone Tracee Chavez MD Primary Care Prov ider Reason for Referral * Consultation (Routine) - Authorized Specialty Diagnoses / Procedures Referred By Contac t Referred To Contact Cardiology Diagnoses Mixed hyperlipidemia Tracee Chavez MD [address] [place] [address] Phone: tel: fax: [facility] [address] [facility] [address] [place] [address] Phone: tel: fax: Referral ID Status Reason Start Date Expiration Date Visits Requested Visits Authorized [id number] Authorized Specialty Services Required 04/17/2025 04/17/2026 1 1 Reason for Visit * Reason Comments Follow-up Encounter Details Date Type Department Care Team ([facility] st Contact Info) Description 04/17/2025 11:00 AM EDT Office Visit Adult Medicine [address] [phone] Tracee Chavez MD [address] [place] [address] Primary hypertension (Primary Dx); Mixed hyperlipidemia; 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 For example, childcare administrator or elderly care for an older adult? [...] Date Recorded What is your living situation? Unrecognized valu e 10/12/2024 Comments No Sex and Gender Information Value Date Recorded Sex Assigned at Not on file Legal Sex Female 7:23 PM EST Gender Identity Not on file Sexual Orientation Not on file documented as of this encounter Last Filed Vital Signs Vital Sign Reading Time Taken Comments Blood Pressure 179/95 04/17/2025 10:59 AM EDT Pulse 58 04/17/2025 10:53 AM EDT Temperature 36.3 C (97.4 F) 04/17/2025 10:53 AM EDT Respiratory Rate 14 04/17/2025 10:53 AM EDT Oxygen Saturation 98% 04/17/2025 10:53 AM EDT Inhaled Oxygen Concentration - - Weight 47.6 kg (105 lb) 04/17/2025 10:53 AM EDT Height 156.2 cm (5' 1.5 ) 04/17/2025 10:53 AM ED T Body Mass Index 19.52 04/17/2025 10:53 AM EDT documented in this encounter Ordered Prescriptions Prescription Sig Dispense Quantity Refills Last Filled Start Date End Date amLODIPine (NORVASC) 10 mg tablet Take 1 tablet (10 mg total) by mouth 1 (one) time each day. 30 each 2 04/17/2025 07/16/2025 documented in this encounter Progress Notes * Tracee Chavez MD - 04/17/2025 11:00 AM EDTAssociated Problem(s): Primary hypertension Hypertension is not well controlled today. 179/95, repeat 160/90 Currently on Amlodipine 5mg. Will increase the dose to 10mg and follow up in one month. Patient is encouraged to follow a low-salt diet and exercise regularly. * Tracee Chavez MD - 04/17/2025 11:00 AM EDTAssociated Problem(s): Hyperlipidemia Last LDL 188. Not on statins due to abnormal LFT's. Previously referred to cardiology but not seen.Will place a new referral today. * Tracee Chavez MD - 04/17/2025 11:00 AM EDTAssociated Problem(s): Mild episode of recurrent major depressive disorder (CMS/HCC V24) Patient currently taking trazodone 100 mg at night, fluoxetine 80 mg a day. Symptoms have been wellcontrolled. Denies any SI, HI. Good level of performance. We will continue same regimen * Tracee Chavez MD - 04/17/2025 11:00 AM EDT PLEASE RESCHEDULE APPOINTMENT WITH GASTROENTEROLOGY. NEW REFERRAL WAS PLACED FOR CARDIOLOGY. * Tracee Chavez MD - 04/17/2025 11:00 AM EDT Images from the original note were not included. Chief Complaint Margie Giang is a 74 y.o. female presenting for Follow-up Subjective Patient with a pmh of HTN, depression, CAD, CKD, comes for med review. Feels well, compliant with medications, does not follow any special diet, exercises regularly. States she feels well. Recently evaluated by surgery for intrahepatic biliary ductal dilation. MRI was performed and referred to GI. It looks like she cancelled the appt. Not seen yet. She also has elevated cholesterol but not taking statin for abnormal LFT's The following portions of the patient's history were reviewed by a provider in this encounter and updated as appropriate: Allergies: She is allergic to amoxicillin, clindamycin hcl, codeine, and other. Medications: Current Outpatient Medications Medication Instructions amLODIPine (NORVASC) 5 mg, oral, Daily aspirin 81 mg EC tablet 1 tab daily atorvastatin (LIPITOR) 40 mg, oral, Daily EPINEPHrine (EpiPen 2-David) 0.3 mg/0.3 mL injection Inject 0.3 mL as directed as needed (anaphylaxis). FLUoxetine (PROZAC) 80 mg, oral, Daily mirabegron (Myrbetriq) 50 mg tablet extended release 24 hr 24 hr tablet 1 tablet, Daily pantoprazole (PROTONIX) 20 mg, oral, Daily traZODone (DESYREL) 100 mg, oral, Nightly PRN, at bedtime for sleep Objective BP (!) 179/95 Pulse 58 Temp 36.3 ??C (97.4 ??F) Resp 14 Ht 1.562 m (61.5 ) Wt 47.6 kg (105 lb) BMI 19.52 kg/m?? SpO2: 98 % Physical Exam Vitals reviewed. Constitutional: Appearance: Normal appearance. Cardiovascular: Rate and Rhythm: Normal rate and regular rhythm. Heart sounds: Normal heart sounds. Pulmonary: Effort: Pulmonary effort is normal. Breath sounds: Normal breath sounds. Musculoskeletal: General: No swelling. Normal range of motion. Cervical back: Neck supple. Skin: General: Skin is warm. Neurological: General: No focal deficit present. Mental Status: She is alert. Assessment/Plan Assessment & Plan Primary hypertension Hypertension is not well controlled today. 179/95, repeat 160/90 Currently on Amlodipine 5mg. Will increase the dose to 10mg and follow up in one month. Patient is encouraged to follow a low-salt diet and exercise regularly. Mixed hyperlipidemia Last LDL 188. Not on statins due to abnormal LFT's. Previously referred to cardiology but not seen.Will place a new referral today. Mild episode of recurrent major depressive disorder (CMS/HCC V24) Patient currently taking trazodone 100 mg at night, fluoxetine 80 mg a day. Symptoms have been wellcontrolled. Denies any SI, HI. Good level of performance. We will continue same regimen All questions and concerns were addressed. Patient verbalizes understanding and agrees with above treatment plan. Patient was advised to contact the office with any worsening symptoms or if new or existing problems arise. Patient to follow- up in 1 month. I have applied the code G2211 to this patient???s visit as the primary care provider, associated with longitudinal, non-procedural care. Our team has an ongoing relationship with the patient in the management of her medical conditions. Tracee Cleaning MD ADULT MEDICINE [address] Dept: [phone] Dept Date of Visit: 04/17/2025 documented in this encounter Plan of Treatment Upcoming Encounters Date Type Department Care Team (Late st Contact Info) Description 05/22/2025 11:15 AM EST Office Visit [address] [phone] Tracee Chavez MD [address] [place] [address] Scheduled Referrals Name Type Priority Associated Diagnoses Orde r Schedule Ambulatory referral to Cardiology Outpatient Referral Routine Mixed hyperlipidemia 1 Occurrences starting 04/17/2025 until 04/17/2026 documented as of this encounter Visit Diagnoses Diagnosis Primary hypertension- Primary Unspecified essential hypertension Mixed hyperlipidemia Mild episode of recurrent major depressive disorder (CMS/HCC V24) documented in this encounter Discontinued Medications Medication Sig Discontinue Reason Start Date End Da te diclofenac (VOLTAREN) 1 % topical gel Apply 4 g topically 2 (two) times a day. Therapy completed 11/21/2024 04/17/2025 lidocaine HCL 4 % adhesive patch,medicated Apply 1 patch topically 1 (one) time each day. For 12 hours and remove for 12 hours Therapy completed 11/21/2024 04/17/2025 folic acid (FOLVITE) 1 mg tablet Take 1 tablet (1 mg total) by mouth. Therapy completed 11/05/2024 04/17/2025 atorvastatin (LIPITOR) 40 mg tablet TAKE 1 TABLET BY MOUTH DAILY Therapy completed 10/11/2024 04/17/2025 amLODIPine (NORVASC) 5 mg tablet Take 1 tablet (5 mg total) by mouth 1 (one) time each day. 02/13/2025 04/17/2025 documented as of this encounter Additional Health Concerns Assessment Noted Time PHQ-9 Depression Total Score: 2 10/13/19 25 11:12 AM EDT documented as of this encounter Care Teams Record Tester Relationship Specialty Start Date End Date Tracee Chavez MD [address] [place] [phone] PCP - General Internal Medicine 03/11/22 documented as of this encounter
--- NOTE | ~2025-04-20 | CT_ITS ---
EXAMINATION: CT ABDOMEN PELVIS WITH IV CONTRAST HISTORY: s/p lap leticia, ?ascites COMPARISON: Comparison is made with the prior examination dated 04/20/2025. TECHNIQUE: CT scan of the abdomen and pelvis was performed following administration of 85 mL Omnipaque 350 using standard departmental protocol. Coronal and sagittal reformatted images were generated and reviewed. This CT exam was performed with one or more of the following dose reduction techniques: automated exposure control, adjustment of the mA and/or kV according to patient size, use of iterative reconstruction technique. DLP: 250 mGy-cm FINDINGS: LOWER CHEST: There is subsegmental atelectasis at the lung bases. There is no pleural effusion. CARDIOVASCULATURE: The heart is normal in size. There is no pericardial effusion. LIVER: The liver is enlarged. No liver mass is identified. The hepatic and portal veins are patent. There is mild periportal edema. GALLBLADDER / BILE DUCTS: The patient is status post interval cholecystectomy. A DENNIS drain is noted with its tip in the region of the fissure for the ligamentum teres. There is amorphous fluid and gas attenuation in the gallbladder fossa which may represent packing material. No rim-enhancing collection. The common bile duct is dilated measuring up to 13 mm in diameter. The degree of dilatation is increased since the prior study. SPLEEN: The spleen is normal in size. No focal splenic lesion is identified. PANCREAS: The pancreas is atrophic. ADRENAL GLANDS: Within normal limits. KIDNEYS/RETROPERITONEUM: No renal calculi are identified. There is no hydronephrosis. No renal masses are identified. LYMPH NODES: No abdominal or pelvic lymphadenopathy. VASCULATURE: The abdominal aorta is normal in caliber. MESENTERY/PERITONEUM: There is a small amount of free fluid around the liver and in the dependent portion of the pelvis. No masses. There is no free intraperitoneal gas. STOMACH: The stomach is unremarkable. SMALL BOWEL: The small bowel is normal in caliber. COLON: The colon is unremarkable. APPENDIX: Normal. URINARY BLADDER/PELVIC ORGANS: The urinary bladder is unremarkable. The patient is status post hysterectomy. BONES / SOFT TISSUES: No suspicious bony or soft tissue abnormalities. CT/CT abdomen pelvis w IV con IMPRESSION: 1. Status post cholecystectomy. DENNIS drain in place. Fluid and likely packing material in the gallbladder fossa. 2. Small amount of free fluid around the liver and in the dependent portion of the pelvis. 3. Dilatation of the common bile bladder which appears more prominent than on the prior study. If there is clinical concern for choledocholithiasis, MRCP could be performed. 4. Hepatomegaly and mild periportal edema. Electronically signed by: Ravi Salgado MD 04/25/2025 10:16 AM EDT
--- NOTE | ~2025-04-20 | XR_ITS ---
CLINICAL HISTORY: chest pain 1 view chest x-ray Comparison: None provided Findings: Low lung volumes with minimal atelectasis. No lobar consolidation. No definite pneumothorax accounting for lateral upper skin folds, in this portable image. Surgical marianela noted including left hemithorax with likely previous mastectomy. No pleural effusion. Mild-moderate cardiomegaly accentuated by AP technique. Degenerative changes include the partially imaged shoulders. IMPRESSION: No consolidation. This document has been electronically signed by: Yousif Ramirez MD on 04/21/2025 19:33:46
--- NOTE | ~2025-04-20 | CT_ITS ---
CLINICAL HISTORY: right sided abd pain CT abdomen and pelvis with contrast Comparison: X-ray of the abdomen from 01/13/2025 Findings: Mild bibasilar atelectasis and scarring. Mild cardiomegaly with multi chamber enlargement of the heart partially imaged. Gallbladder wall thickening, pericholecystic fluid, and cholelithiasis are concerning for cholecystitis. Mild periportal edema noted in the liver. Spleen approaches the upper limits of normal. Adrenal glands are partly obscured and otherwise unremarkable. Moderate volume loss of the pancreas noted. Imaged CBD measures 8 mm diameter. No hydronephrosis. No suspicious features of small cystic lesions in the kidney. Small mesenteric and retroperitoneal lymph nodes are nonspecific and likely reactive. Mild small bowel dilatation is nonspecific and may reflect ileus as can be seen from adjacent or separate inflammation. No definite small bowel obstruction at this time. Imaged appendix is within normal limits (image 64 series 3 and 43 of series 7). Severe stool burden is present, including the cecum. Densities may reflect ingested material including mildly patulous terminal ileum. Mild wall thickening of the urinary bladder is nonspecific. Uterus is absent. No adnexal soft tissue mass by CT. Metal artifacts noted likely postprocedural metal in the pelvis. Moderate height loss of the T9 compression fractures age indeterminate by CT and likely old/chronic given sclerosis. Vacuum disc phenomenon and disc bulge at L4-L5. Additional degenerative changes are multifocal with multifocal Schmorl's nodes. Facet arthropathy is also multifocal. Degenerative changes include imaged hips and SI joints. IMPRESSION: Gallbladder wall thickening, pericholecystic fluid, and cholelithiasis are concerning for cholecystitis. This document has been electronically signed by: Yousif Ramirez MD on 04/21/2025 00:18:14
--- NOTE | ~2025-04-20 | US_ITS ---
CLINICAL HISTORY: Right upper quadrant pain US abdomen limited Comparison: CT of the abdomen from 04/20/2025 Findings: Gallbladder wall thickening, pericholecystic fluid, and cholelithiasis are concerning for cholecystitis. Imaged CBD measures 9 mm diameter. No hydronephrosis of the partially imaged right kidney. Increased echogenicity of the liver relative to right kidney as can be seen with steatotic change. Mild periportal edema noted on the comparison study. No right upper quadrant ascites or right pleural effusion in the [id number]. Majority of the pancreas is obscured. IMPRESSION: 1. Gallbladder wall thickening, pericholecystic fluid, and cholelithiasis are concerning for cholecystitis. 2. Mild dilatation of the imaged CBD is nonspecific by ultrasound. This document has been electronically signed by: Yousif Ramirez MD on 04/21/2025 02:16:14
[2025-04-20 19:30] VITALS: BP 145/68; PULSE 58; RESP 15; TEMP 36.4; O2SAT 98; BMI 19.8
--- NOTE | 2025-04-20 19:30 | ED.GENADULT ---
HPI - General Adult General Chief complaint: Abdominal Pain Stated complaint: abd pain,vomiting Time Seen by Provider: 04/20/25 21:06 Related Data Home Medications ?Medication ?Instructions ?Recorded ?Confirmed amlodipine 5 mg tablet 5 mg PO DAILY 12/26/24 01/13/25 fluoxetine 40 mg capsule mg PO 12/26/24 01/13/25 mirabegron 50 mg tablet,extended 50 mg PO DAILY 12/26/24 01/13/25 release 24 hr pantoprazole 20 mg tablet,delayed 20 mg PO DAILY 12/26/24 01/13/25 release atorvastatin 40 mg tablet 40 mg PO DAILY 01/13/25 01/13/25 estradiol 0.01% (0.1 mg/gram) vaginal 01/13/25 01/13/25 vaginal cream hydrochlorothiazide 25 mg tablet 25 mg PO DAILY 01/13/25 01/13/25 trazodone 100 mg tablet 100 mg PO BEDTIME 01/13/25 01/13/25 Previous Rx's ?Medication ?Instructions ?Recorded ondansetron 4 mg disintegrating 4 mg PO Q8H PRN nausea and 01/13/25 tablet vomiting 4 days #12 tabs polyethylene glycol 3350 17 gram 17 g PO DAILY 14 days #14 ea 01/13/25 oral powder packet (Miralax) Allergies Allergy/AdvReac Type Severity Reaction Status Date / Time amoxicillin (AMOXICILLIN) Allergy Unknown ANAPHYLAXIS Verified 04/20/25 19:34 clindamycin (CLINDAMYCIN) Allergy Unknown NAUSEA & Verified 04/20/25 19:34 VOMITING codeine (CODEINE) Allergy Unknown NAUSEA & Verified 04/20/25 19:34 VOMITING prochlorperazine (From Allergy Unknown DRY MOUTH Verified 04/20/25 19:34 COMPAZINE) [facility] Social History Social History Advance Directives: No Advance Directives Information Provided: No Physical Exam ED Vital Signs: Vital Signs - 24 hr 04/20/25 19:30 04/20/25 23:50 Temperature 97.6 F 98.3 F Pulse Rate 58 61 Respiratory Rate 15 18 Blood Pressure 145/68 H 187/77 H Pulse Oximetry 98 98 Oxygen Delivery Method Room Air Room Air BMI result Body Mass Index 19.8 Course Course Course Narrative: This is a rapid medical exam performed by Jillian Daley NP: Additional HPI, ROS, PE not included below will be deferred to primary provider. Patient is a 74y/o F presenting with complaint of RLQ abdominal pain and distention, also having back pain and nausea. Pain began around 4pm today. Plan: labs, UA Medications Administered Discontinued Medications Generic Name Dose Route Start Last Admin Trade Name Freq PRN Reason Stop Dose Admin Iohexol 85 ml 04/20/25 23:13 04/20/25 23:18 Iohexol 350 Mg/Ml 100 Ml Infus..Btl IV 04/20/25 23:14 85 ml ONCE ONE Administration Medical Decision Making Lab Data 04/20/25 19:42 04/20/25 19:42 Labs: Lab Results 04/20/25 04/20/25 Range/Units 19:42 22:11 WBC 15.6 H (4.8-10.8) X10*3/uL RBC 4.34 (4.20-5.50) X10*6/uL Hgb 13.4 (12.0-16.0) g/dl Hct 37.5 (37.0-47.0) % MCV 86.4 (80.0-98.0) fL MCH 30.9 (27.0-33.0) pg MCHC 35.7 H (31.0-35.0) g/dl RDW 13.2 (11.0-16.0) % Plt Count 180 D (160-400) X10*3/uL MPV 10.6 (9.4-12.3) fL Immature Gran % (Auto) 0.3 (0.0-0.4) % Neut % (Auto) 78.5 H (45-73) % Lymph % (Auto) 13.8 L (20-40) % [place] % (Auto) 6.2 (2-11) % Eos % (Auto) 0.8 (0-4) % Baso % (Auto) 0.4 (0-2) % Lymph # (Auto) 2.2 (1.2-4.9) X10*3/uL [place] # (Auto) 1.0 (0.1-1.2) X10*3/uL Eos # (Auto) 0.1 (0.0-0.4) X10*3/uL Baso # (Auto) 0.1 (0.0-0.2) X10*3/uL Abs Immat Gran (auto) 0.05 H (0.00-0.03) X10*3/uL Absolute Neuts (auto) 12.2 H (2.0-8.3) x10*3/uL Absolute Nucleated RBC 0.000 (0.0-0.012) X10*3/uL Nucleated RBC % (auto) 0.0 (0.0-0.2) /100WBC Sodium 138 (135-145) mmol/L Potassium 3.9 (3.3-5.1) mmol/L Chloride 104 (96-108) mmol/L Carbon Dioxide 21 L (22-29) mmol/L Anion Gap 17 (12-20) BUN 18 H (9-16) mg/dL Creatinine 0.95 (0.5-1.4) mg/dL Estim Creat Clear Calc 39.6 Estimated GFR 58 Random Glucose 118 H (60-115) mg/dL Calcium 10.3 H (8.4-10.2) mg/dL Total Bilirubin 1.5 H (0.0-1.0) mg/dL AST 356 H (5-31) U/L ALT 150 H (0-31) U/L Alkaline Phosphatase 236 H (39-117) U/L Total Protein 7.3 (6.5-8.0) g/dL Albumin 4.5 (3.5-5.0) g/dL Urine Color Yellow Urine Appearance Clear Urine pH 8.0 (5.0-9.0) Ur Specific [place] 1.015 (1.005-1.025) Urine Protein 30 (1+) H (Neg-Trace) mg/dL Urine Glucose (UA) Negative (Negative) mg/dL Urine Ketones Negative (Negative) mg/dL Urine Blood Negative (Negative) Urine Nitrite Negative (Negative) Ur Leukocyte Esterase Moderate (2+) H (Negative) Urine RBC 0-2 (0-2) /HPF Urine WBC 11-20 H (0-5) /HPF Ur Squamous Epith Cells 0-2 (0-2) /HPF Urine Bacteria 4+ (None Seen) Hyaline Casts 0-2 (0-2) /LPF Ethyl Alcohol < 10 mg/dL Discharge Plan Discharge Clinical Impression: Acute cholecystitis Patient Disposition: Admitted As Inpatient Print Language: Sami
[2025-04-20 19:47] LABS: MANUAL DIFF FLAG NO
[2025-04-20 19:50] LABS: Hematocrit 37.5 % (37.0-47.0); Hemoglobin 13.4 g/dl (12.0-16.0); Imm Gran Abs Auto 0.05 X10*3/uL (0.00-0.03); Imm Gran Pct Auto 0.3 % (0.0-0.4); Lymphocytes Absolute Auto 2.2 X10*3/uL (1.2-4.9); Mean Corpuscular HGB Conc 35.7 g/dl (31.0-35.0); Mean Corpuscular Hemoglobin 30.9 pg (27.0-33.0); Mean Corpuscular Volume 86.4 fL (80.0-98.0); NRBC Abs Auto 0.000 X10*3/uL (0.0-0.012); NRBC Pct Auto 0.0 /100WBC (0.0-0.2); Platelet Count 180 X10*3/uL (160-400); Red Blood Count 4.34 X10*6/uL (4.20-5.50); White Blood Count 15.6 X10*3/uL (4.8-10.8)
[2025-04-20 20:05] LABS: Alanine Aminotransferase 150 U/L (0-31); Albumin Level 4.5 g/dL (3.5-5.0); Alkaline Phosphatase 236 U/L (39-117); Anion Gap 17 (12-20); Aspartate Amino Transferase 356 U/L (5-31); Blood Urea Nitrogen 18 mg/dL (9-16); Calcium 10.3 mg/dL (8.4-10.2); Carbon Dioxide 21 mmol/L (22-29); Chloride 104 mmol/L (96-108); Creatinine Clr Calc Pharmacy 39.6; Estimated Glomerular Filt Rate 58; Potassium 3.9 mmol/L (3.3-5.1); Sodium 138 mmol/L (135-145); Total Protein 7.3 g/dL (6.5-8.0)
--- OUTSIDE RECORDS SUMMARY | 2025-04-20 21:32 | XMS_ITS | Encounter Summary ---
Author Organization [facility] Address [address] [place] [address] Care Team Providers Care Commercial Drone Pilot Name Role Phone Tracee Chavez MD Primary Care Prov ider Encounter Details Date Type Department Care Team ([facility] st Contact Info) Description 10/31/2024 Lab Requisition [facility] - Main Lab [address] [facility] [place] [phone] Ruthy Nguyen NP [address] [facility] [address] [place] [address] Urinary tract infection, site not specified Social History Tobacco Use Types Packs/Day Years [...] for your loved ones. For example, child care coordinator or elderly care for an older adult? [...] on file documented as of this encounter Plan of Treatment Upcoming Encounters Date Type Department Care Team (Late st Contact Info) Description 05/22/2025 11:15 AM EST Office Visit Adult Medicine [address] [phone] Tracee Chavez MD [address] [place] [address] documented as of this encounter Procedures Procedure Name Priority Date/Time Associated Diagnosis Comments BACTERIAL IDENTIFICATION AND SUSCEPTIBILITY, AEROBIC Routine 10/30/2024 12:00 AM EDT Urinary tract infection, site not specified documented in this encounter Results * (ABNORMAL) Bacterial identification and susceptibility, aerobic (10/30/2024 12:00 AM EDT) Culture, Bacterial ID and Sensitivity Escherichia coli(A) GIDE[facility] 11/01/2024 8:46 AM EDT [facility] Other Urine specimen from urethra / [...] Escherichia coli Trimethoprim/Sulfamethoxazole GIDEON <=20 ug/ml: Susceptible us Ruthy Nguyen NP LAB MICROBIOLOGY - GENERA L ORDERABLES Final Result [facility] [address] [place] [address], [place] [phone] documented in this encounter Visit Diagnoses Diagnosis Urinary tract infection, site not specified documented in this encounter Additional Health Concerns Assessment Noted Time PHQ-9 Depression Total Score: 2 10/13/19 25 11:12 AM EDT documented as of this encounter Care Teams Commercial Drone Pilot Relationship Specialty Start Date End Date Tracee Chavez MD [address] [place] [phone] PCP - General Internal Medicine 03/11/22 documented as of this encounter
--- OUTSIDE RECORDS SUMMARY | 2025-04-20 21:32 | XMS_ITS ---
Author Name [facility] Organization Unknown Care Team Organization Name Specialty Phone Email Start Date End Da te [facility] Tracee Diaz Primary Care 09/23/2022 03/06/2024 [facility] Termed, PROVIDER Primary Care 05/26/202202/16
--- OUTSIDE RECORDS SUMMARY | 2025-04-20 21:32 | XMS_ITS | Encounter Summary ---
Author Organization [facility] Address [address] [place] [address] Care Team Providers Care Quantitative Analyst Name Role Phone Tracee Chavez MD Primary Care Prov ider Encounter Details Date Type Department Care Team (Late st Contact Info) Description 01/05/2025 Lab Requisition [facility] - Main Lab [address] [facility] [place] [phone] Ariela Saunders MD [address] [facility] [address] [place] [address] Other abnormal findings in urine Social History Tobacco Use Types Packs/Day Years [...] for your loved ones. For example, child development teacher or elderly care for an older adult? [...] 11:15 AM EST Office Visit Adult Medicine [address] [phone] Tracee Chavez MD [address] [place] [address] documented as of this encounter Procedures Procedure Name Priority Date/Time Associated Diagnosis Comments CULTURE URINE Routine 01/05/2025 10:20 AM EDT Other abnormal findings in urine documented in this encounter Results * (ABNORMAL) Culture urine (01/05/2025 10:20 AM EDT) Culture, Urine >100,000 CFU/mL Escherichia coli(A) [facility] 01/07/2025 8:[address] [facility] Urine Urine specimen from urethra / Unknown 01/05/2025 10:20 AM EDT 01/05/2025 12:28 PM EDT Narrative Organism Antibiotic Method Susceptibility Escherichia coli Amoxicillin/Clavulanate GIDEON 4 ug/ml: Susceptible Escherichia coli Ampicillin/Sulbactam GIDEON 4 ug/ml: Susceptible Escherichia coli Piperacillin/Tazobactam GIDEON <=4 ug/ml: Susceptible Escherichia coli Cefazolin (Urine) GIDEON 4 ug/ml: Susceptible Escherichia coli Cefoxitin GIDEON <=4 [...] coli Trimethoprim/Sulfamethoxazole GIDEON <=20 ug/ml: Susceptible us Ariela Saunders MD LAB MICROBIOLOGY - G ENERAL ORDERABLES Final Result [facility] [address] [place] [address], [place] [phone] documented in this encounter Visit Diagnoses Diagnosis Other abnormal findings in urine documented in this encounter Additional Health Concerns Assessment Noted Time PHQ-9 Depression Total Score: 2 03/27/20 25 11:12 AM EDT documented as of this encounter Care Teams Quantitative Analyst Relationship Specialty Start Date End Date Tracee Chavez MD [address] [place] [phone] PCP - General Internal Medicine 03/11/22 documented as of this encounter
--- OUTSIDE RECORDS SUMMARY | 2025-04-20 21:32 | XMS_ITS | Clinical Summary ---
Author Organization [facility] Address [address] [place] [phone] Phone Care Team Providers Care Boiler Tenders Supervisor Name Role Phone Tracee Chavez MD Primary [...] by mouth 1 (one) time each day. 01/15/20 23 Active pantoprazole (PROTONIX) 20 mg EC tablet Take 1 tablet (20 mg total) by mouth 1 (one) time each day. 90 each 3 10/13/19 25 026 Active EPINEPHrine (EpiPen 2-David) 0.3 mg/0.3 mL injection Inject 0.3 mL as directed as needed (anaphylaxis) . 1 each 1 10/13/19 25 Active traZODone (DESYREL) 100 mg tablet TAKE 1 TABLET BY MOUTH AT BEDTIME NEEDED FOR SLEEP 90 tablet 1 01/06/20 25 Active FLUoxetine (PROzac) 40 mg capsule TAKE 2 CAPSULES BY MOUTH DAILY 180 capsule 04/02/20 25 Active amLODIPine (NORVASC) 10 mg tablet Take 1 tablet (10 mg total) by mouth 1 (one) time each day. 30 each 2 04/17/20 25 025 Active atorvastatin (LIPITOR) 40 mg tablet TAKE 1 TABLET BY MOUTH DAILY 90 tablet 1 10/12/19 25 025 Discontinued(Th erapy completed) diclofenac (VOLTAREN) 1 % topical gel Apply 4 g topically 2 (two) times a day. 100 g 2 11/22/19 25 025 Discontinued(Th erapy completed) lidocaine HCL 4 % adhesive patch,medicate d Apply 1 patch topically 1 (one) time each day. For 12 hours and remove for 12 hours 20 patch 11/22/19 025 Discontinued(Th erapy completed) folic acid (FOLVITE) 1 mg tablet Take 1 tablet (1 mg total) by mouth. 11/06/19 025 Discontinued( erapy completed) FLUoxetine (PROzac) 40 mg capsule TAKE 2 CAPSULES BY MOUTH DAILY 180 capsule 12/28/19 025 Discontinued amLODIPine (NORVASC) 5 mg tablet Take 1 tablet (5 mg total) by mouth 1 (one) time each day. 90 tablet 02/14/20 025 Discontinued Active Problems Problem Noted Date Diagnosed Date Common bile duct dilation 11/30/2024 Fibromyalgia 06/28/2024 Overview (06/28/2024): Dr. Horta - [facility] pain clinic Primary insomnia 04/13/2024 Hepatic steatosis [...] sparing. Small amount of gallbladder sludge. 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 Symptoms have been well controlled. Denies any SI, HI. Good level of performance. We will continue same regimen Adjustment disorder with mixed anxiety and depre ssed mood 09/14/2018 Elevated glucose 12/21/2017 Female stress incontinence 07/30/2016 Thrombosed external hemorrhoid 09/26/2015 Panic disorder 10/23/2014 CKD (chronic kidney disease) stage 3, GFR 30-59 ml/min ([facility] V24, [facility] V28) 08/10/2014 Assessment & Plan (10/12/2024 12:00 PM EDT): Orders: Comprehensive metabolic panel; Future Lipid panel with reflex to direct LDL; Future Hyperlipidemia 08/24/2013 Assessment & Plan (04/17/2025 1:43 PM EDT): Last LDL 188. Not on statins due to abnormal LFT's. Previously referred to cardiology but not seen. Will place a new referral today. Vitamin D deficiency 01/25/2012 Osteoporosis 01/13/2012 Back pain 11/12/2008 GERD (gastroesophageal reflux disease) 7 Overview (06/28/2024): No esophagitis and no Levine's esophagus on upper GI endoscopy 2012. 3 cm hiatal hernia from 34-37 cm. Primary hypertension 04/13/2006 Assessment & Plan (04/17/2025 1:43 PM EDT): Hypertension is not well controlled today. 179/95, repeat 160/90 Currently on Amlodipine 5mg. Will increase the dose to 10mg and follow up in one month. Patient is encouraged to follow a low-salt diet and exercise regularly. Assessment & Plan (10/12/2024 12:00 PM EDT): Bradycardia 02/08/2006 Overview (06/28/2024): Holter 03/04/06, Holter (-) lowest sinus glenn 39. no high grade arrythmia Coronary atherosclerosis of [place] coronary vess el 02/08/2006 Overview (06/28/2024): s/p stent 1999, RCA ECHO 2005: IMPRESSION: Normal left ventricular systolic function without specific wall motion abnormalities. Trace mitral regurgitation. Assessment & Plan (10/12/2024 12:00 PM EDT): Orders: Comprehensive metabolic panel; Future Lipid panel with reflex to direct LDL; Future Encounters Date Type Department Care Team Description 04/17/2025 11:00 AM EDT Office Visit Adult Medicine [facility] - [address] [phone] Tracee Gordon MD Primary hypertension (Primary Dx); Mixed hyperlipidemia; Mild episode of recurrent major depressive disorder ([facility] V24) 03/01/2025 1:55 PM EDT - 03/01/2025 11:59 PM EDT Hospital Encounter Radiology Department - [address] [phone] Encounter for screening mammogram for breast cancer Discharge Disposition: Home or Self Care from Last 3 Months Immunizations Immunization Administration Dates Next Due Influenza trivalent, 0.5mL ( Fluad) 65yo and older 04/13/2024,06/03/2023,06/02/2022,04/22,04/25/2020,05/30/2019,05/05/2018 ,07/01/2017 Influenza trivalent, 0.5mL, preservative free (Fluarix; FluLaval; Fluzone) ages 6mo and older (Afluria) 3 years and older 03/30/2016,06/06/2015,04/13/2014,04/10,06/16/2012,06/14/2011,07/04/2010 ,04/05/2008,05/18/2007,06/27/2006,11/2004 Pneumococcal conjugate 13 va lent (Prevnar 13, [...] W/O BSO BREAST SURGERY 2013 Bilateral PROCEDURE: NE UNLISTED PROCEDURE BREAST; COMMENT: breast reduction BREAST BIOPSY Left PROCEDURE: BX BREAST; PERC NEEDLE CORE W/IMAG GUID; COMMENT: lt side, many yrs ago COLONOSCOPY 2013 PROCEDURE: HISTORICAL COLONOSCOPY; COMMENT: normal UPPER GASTROINTESTINAL ENDOSCOPY 2012 PROCEDURE: NE UPPER GI ENDOSCOPY PERFORMED; COMMENT: no esophagitis on PPI treatment; 3 cm HH. COLONOSCOPY 2001 PROCEDURE: HISTORICAL COLONOSCOPY; COMMENT: negative UPPER GASTROINTESTINAL ENDOSCOPY 01/31/2018 PROCEDURE: NE UPPER GI ENDOSCOPY PERFORMED; COMMENT: 3 cm HH; otherwise normal on PPI rx. BREAST BIOPSY Left PROCEDURE: BX BREAST; PERC NEEDLE CORE W/IMAG GUID; COMMENT: DENSE HYPOCELLULAR STROMAL FIBROSIS WITH FOCAL HEMOSIDERIN-LADEN BREAST LUMPECTOMY HYSTERECTOMY Medical History Medical History Date Comments Coronary atherosclerosis of unspecified type of vessel, [place] or graft 02/08/2006 DX:Coronary atherosclerosis of unspecified type of vessel, [place] or graft; COMMENT: s/p stent 2000, RCA [...] case Fibromyalgia DX:Fibromyalgia; COMMENT: Dr. Horta - [facility] pain clinic Myofascial pain syndrome DX:Myof ascial pain syndrome; COMMENT: Dr. Horta - [facility] pain clinic Vitamin D deficiency 01/25/2012 DX:Vitamin D deficiency Panic disorder 10/23/2014 DX:Panic disorde r Osteoporosis 01/13/2012 DX:Osteoporosis Hypertension 04/13/2006 DX:Hypertension Hyperlipidemia 08/24/2013 DX:Hyperlipidemi a Depression, major, recurrent , in remission ([facility] V24) 07/05/2014 DX:Depression, major, recurr ent, in remission (HCC) CKD (chronic kidney disease) stage 3, GFR 30-59 ml/min ([facility] V24, [facility] V28) 08/10/2014 DX:CKD (chronic kidney disea se) stage 3, GFR 30-59 ml/min ([facility]) History of other specified c onditions presenting hazards to health DX:History of other speci fied conditions presenting hazards to health; COMMENT: basal cell Hepatic steatosis 02/25/2023 DX:Hepatic jaime atosis; COMMENT: US SOFT TISSUE ABDOMEN/BACK, LIMITED [...] for your loved ones. For example, child watch attendant or elderly care for an older adult? [...] Sexual Orientation Not on file Obstetrics History Para Term AB IAB SAB Ectopic Multiple Livin g Live Births 2 2 2 2 Date Outcome GA Total Labor Labor/2nd/3rd Weight Sex Type Anes PTL Michelle A1 A5 Name Clin Term Term Last Filed Vital Signs Vital Sign Reading [...] Mass Index 19.52 04/17/2025 10:53 AM EDT Plan of Treatment Upcoming Encounters Date Type Department Care Team (Late st Contact Info) Description 05/22/2025 11:15 AM EST Office Visit Adult Medicine [address] [phone] Tracee Chavez MD [address] [place] [address] Health Maintenance Due Date Last Done Comments Zoster Vaccines (1 of 2) 08/11/2012 06/16/2012 Osteoporosis Screening (Bone Density Screening) 02/22/2025 02/22/2023, 12/23/2016 COVID-19 Vaccine ( season) 2025 06/23/2021, 10/14/2020, 09/23/2020 Falls Risk Assessment 10/12/2025 10/12/2024 Medicare Annual Wellness Visit 10/12/2025 10/12/2024 Social Influencers of Health Screening 10/12/2025 10/12/2024 Hypertension/CHF/CAD Annual BMP Blood Test 11/30/2025 11/30/2024, 09/15/2023 Influenza Vaccine (#1) 2026 , 06/03/2023, 06/02/2022, Additional history exists Postponed from 03/19/2025 (Patient Refused) Breast Cancer Screening 03/01/2027 03/01/20, 02/28/2024, 02/28/2024, Additional history exists Colorectal Cancer Screening: FIT-DNA (Cologuard) 06/21/2027 06/21/2024 Cholesterol Screening (Lipid Panel) 11/30/2029 11/30/2024, 02/02/2023 DTaP,Tdap,and Td Vaccines (5 - Td or Tdap) 04/13/2034 04/13/2024, 01/13/2012, 03/18/2004, Additional history exists Hepatitis C Screening Completed 04/04/2013 Pneumococcal Vaccine: 50+ Years Completed 08/25/2021, 07/01/2017 RSV Immunization Adult Patients Completed 07/09/2023 Depression Screening Completed 10/12/2024 HIB Vaccines Aged Out No longer eligi [...] Procedure Name Priority Date/Time Associated Diagnosis Comments MG MAMMO DIGITAL SCREENING W BRIJESH BILAT Routine 03/01/2025 2:38 PM EDT Encounter for screening mammogram for breast cancer COMPREHENSIVE METABOLIC PANEL Routine 11/30/2024 10:26 AM EDT Tremor Stage 3a chronic kidney disease (CMS/HCC V24, CMS/HCC V28) Atherosclerosis of [place] coronary artery of [place] heart with stable angina pectoris (CMS/HCC V24) LIPID PANEL WITH REFLEX TO DIRECT LDL Routine 11/30/2024 10:26 AM EDT Tremor Stage 3a chronic kidney disease (CMS/HCC V24, CMS/HCC V28) Atherosclerosis of [place] coronary artery of [place] heart with stable angina pectoris (CMS/HCC V24) EXTERNAL COLOGUARD (FIT-DNA) REPORT 06/21/2024 DXA BONE DENSITY STUDY 1+ SITS AXIAL SKEL Routine 02/22/2023 2:57 PM EDT Asymptomatic menopausal state HEPATITIS C SCREENING Routine 04/04/2013 from Last 3 Months or Most Recently Relevant to Health Maintenance Results * MG Mammo Digital Screening w Brijesh bilat (03/01/2025 2:38 PM EDT) Anatomical Region Laterality Modality Breast Bilateral Mammography 03/05/2025 10:0 5 AM EDT Impressions 03/05/2025 10:08 AM EDT No mammographic evidence of malignancy. BREAST DENSITY: B - There are scattered areas of fibroglandular density. BI-RADS CATEGORY: 2 - BENIGN RECOMMENDATION: Screening bilateral mammogram is recommended in 1 year. MAMMO LOCATION: [facility], [address] [place] [address], [phone], . . -------- FINAL REPORT -------- Dictated By: Arlet Howard Dictated Date: 03/05/2025 10:05 ET Assigned Physician: Arlet Howard Reviewed and Electronically Signed By: Arlet Howard Signed Date: 03/05/2025 10:08 ET Workstation ID: [id number] Transcribed By: Self Edit Transcribed Date: 03/05/2025 10:05 ET Narrative 03/05/2025 10:08 AM EDT EXAM: Screening Mammogram CLINICAL: 74 years old, Female, routine annual exam. History of a benign left excisional biopsy on 05/25/2023. COMPARISON: 02/28/2024 and as far back as 12/09/2015 TECHNIQUE: Bilateral MLO and CC views were obtained digitally with 3-D mammogram (digital breast tomosynthesis). Computer-aided detection was utilized in evaluation of this exam (CAD). FINDINGS: Postoperative changes with surgical clips again noted in the upper outer left breast. No new suspicious mass, architectural distortion, or suspicious calcifications. Procedure Note Arlet oHward MD - 03/05/2025 EXAM: Screening Mammogram CLINICAL: 74 years old, Female, routine annual exam. History of a benignleft excisional biopsy on 05/25/2023. COMPARISON: 02/28/2024 and as far back as 12/09/2015 TECHNIQUE: Bilateral MLO and CC views were obtained digitally with 3-Dmammogram (digital breast tomosynthesis). Computer-aided detection wasutilized in evaluation of this exam (CAD). FINDINGS: Postoperative changes with surgical clips again noted in the upper outerleft breast. No new suspicious mass, architectural distortion, orsuspicious calcifications. IMPRESSION: No mammographic evidence of malignancy. BREAST DENSITY: B - There are scattered areas of fibroglandular density. BI-RADS CATEGORY: 2 - BENIGN RECOMMENDATION: Screening bilateral mammogram is recommended in 1 year. MAMMO LOCATION: [facility], [address] [place] [address], [phone], . . -------- FINAL REPORT -------- Dictated By: Arlet Howard Dictated Date: 03/05/2025 10:05 ET Assigned Physician: Arlet Howard Reviewed and Electronically Signed By: Arlet Howard Signed Date: 03/05/2025 10:08 ET Workstation ID: [id number] Transcribed By: Self Edit Transcribed Date: 03/05/2025 10:05 ET us Tracee Chavez MD IMG BI PROCEDURES Final Result * (ABNORMAL) Lipid panel with reflex to direct LDL (11/30/2024 10:26 AM EDT) Cholesterol 253(H) 0 - 200 mg/dL LAB CHEMISTRY METHOD 11/30/2024 1:25 PM EDT [facility] Triglycerides 175(H) 0 - 150 mg/dL LAB CHEMISTRY METHOD 11/30/2024 1:25 PM EDT [facility] HDL 30(L) >=40 mg/dL LAB CHEMISTRY METHOD 11/30/2024 1:25 PM EDT [facility] LDL Calculated 188(H) 0 - 100 mg/dL LAB CHEMISTRY METHOD 11/30/2024 1:25 PM EDT [facility] VLDL Cholesterol Richard 35 mg/dL LAB CHEMISTRY METHOD 11/30/2024 1:25 PM [facility] Non HDL Chol. (LDL+VLDL) 223(H) <145 mg/dL LAB CHEMISTRY METHOD 11/30/2024 1:25 PM EDT [facility] Chol/HDL Ratio 8.4(H) 0.0 - 4.4 LAB CHEMISTRY METHOD 11/30/2024 1:25 PM T [facility] Blood Venous blood specimen / Unknown Venipuncture / Unknown 11/30/2024 10:26 AM EDT 11/30/2024 10:26 AM EDT us Tracee Chavez MD LAB BLOOD ORDERABL ES Final Result [facility] [address] [place] [address], * (ABNORMAL) Comprehensive metabolic panel (11/30/2024 10:26 AM EDT) Pathologist [facility] Sodium 141 133 - 145 mmol/L LAB CHEMISTRY METHOD 11/30/2024 1:25 PM EDT [facility] Potassium 4.5 3.5 - 5.5 mmol/L LAB CHEMISTRY METHOD 11/30/2024 1:25 PM EDT [facility] Chloride 105 96 - 110 mmol/L LAB CHEMISTRY METHOD 11/30/2024 1:25 PM [facility] CO2 27 21 - 32 mmol/L LAB CHEMISTRY METHOD 11/30/2024 1:25 PM [facility] Anion Gap 9 3 - 11 LAB CHEMISTRY METHOD 11/30/2024 1:25 PM [facility] Glucose 109(H) 70 - 100 mg/dL LAB CHEMISTRY METHOD 11/30/2024 1:25 PM [facility] BUN 22 5 - 25 mg/dL LAB CHEMISTRY METHOD 11/30/2024 1:25 PM [facility] Creatinine 1.03 0.50 - 1.10 mg/dL LAB CHEMISTRY METHOD 11/30/2024 1:25 PM [facility] eGFR 58(L) >=60 mL/min/1. 73m2 LAB CHEMISTRY METHOD 11/30/2024 1:25 PM [facility] Comment:Calculation based on the Chronic Kidney Disease Epidemiology Collaboration (CKD-EPI) equation refit without adjustment for race. BUN/Creatinine Ratio 21.4 LAB CHEMISTRY METHOD 11/30/2024 1:25 PM [facility] Calcium 10.3 8.5 - 10.5 mg/dL LAB CHEMISTRY METHOD 11/30/2024 1:25 PM [facility] AST (SGOT) 133(H) 10 - 42 unit/L LAB CHEMISTRY METHOD 11/30/2024 1:25 PM [facility] ALT (SGPT) 125(H) 10 - 60 unit/L LAB CHEMISTRY METHOD 11/30/2024 1:25 PM [facility] Alkaline Phosphatase 197(H) 42 - 121 unit/L LAB CHEMISTRY METHOD 11/30/2024 1:25 PM [facility] Total Protein 7.3 6.0 - 8.0 g/dL LAB CHEMISTRY METHOD 11/30/2024 1:25 PM EDT [facility] Albumin 3.7 3.2 - 5.0 g/dL LAB CHEMISTRY METHOD 11/30/2024 1:25 PM EDT [facility] Total Bilirubin 0.5 0.0 - 1.4 mg/dL LAB CHEMISTRY METHOD 11/30/2024 1:25 PM EDT [facility] Blood Venous blood specimen / Unknown Venipuncture / Unknown 11/30/2024 10:26 AM EDT 11/30/2024 10:26 AM EDT us Tracee Chavez MD LAB BLOOD ORDERABL ES Final Result [facility] [address] [place] [address], [place] [phone] * External Cologuard (FIT-DNA) Report (06/21/2024) us Provider Onbase LAB BODY FLUIDS AND STOOLS OR DERABLES Final Result * DXA BONE DENSITY STUDY [...] 12/23/2016. 7.1% loss of left hip bone mineral density which is statistically significant at the 95% confidence level. No statistically significant change in lumbar spine bone mineral density. IMPRESSION: IMPRESSION: Osteoporosis by WHO criteria. The [facility] Department of Internal Medicine [...] alternative screening schedule based on sydney Guerra., [facility] August 06, 2011 for patients [...] IMPRESSION: IMPRESSION: Osteoporosis by WHO criteria. The [facility] Department of Internal Medicine [...] alternative screening schedule based on [facility]ney [facility]erra., [facility] for patients with osteopenia (based on hip BMD T-score) is as follows: * advanced osteopenia (T scores -2.00 to -2.49), BMD testing every year * moderate osteopenia (T scores -1.50 to -1.99), BMD testing every 5years mild osteopenia or normal BMD (T scores -1.50 and higher), BMD testingevery 15 years Hatt[facility] GONZALEZ [facility] DXA PROCEDURES Final Result * Hepatitis C Screening (04/04/2013) [facility] Hepatitis C Screening abstracted Historical Provider HEALTH MAINTENANCE Final Result from Last 3 Months or Most Recently Relevant to Health Maintenance Insurance [employer] Care Teams Boiler Tenders Supervisor Relationship Specialty Start Date End Date Tracee Chavez MD [address] [place] [phone] PCP - General Internal Medicine 03/11/22
--- NOTE | 2025-04-20 21:57 | ED.ABDPAIN ---
HPI - Abdominal Pain General Chief Complaint: Abdominal Pain Stated Complaint: abd pain,vomiting Time Seen by Provider: 04/20/25 21:06 History of Present Illness HPI narrative: Patient is a 74-year-old female presents today with having right-sided abdominal pain. Previous a history of being on statins. Which with the thought behind having elevated LFTs. Patient presented with having worsening pain earlier tonight. The pain was on the right side. Not associated with bowel movements. Not associated with urination. No fever no chills. No chest pain. Patient is from home. Had a normal bowel movement earlier. No recent abdominal surgery previous hysterectomy many years ago. History of coronary artery disease status post stents. Related Data Home Medications ?Medication ?Instructions ?Recorded ?Confirmed amlodipine 5 mg tablet 5 mg PO DAILY 12/26/24 01/13/25 fluoxetine 40 mg capsule mg PO 12/26/24 01/13/25 mirabegron 50 mg tablet,extended 50 mg PO DAILY 12/26/24 01/13/25 release 24 hr pantoprazole 20 mg tablet,delayed 20 mg PO DAILY 12/26/24 01/13/25 release atorvastatin 40 mg tablet 40 mg PO DAILY 01/13/25 01/13/25 estradiol 0.01% (0.1 mg/gram) vaginal 01/13/25 01/13/25 vaginal cream hydrochlorothiazide 25 mg tablet 25 mg PO DAILY 01/13/25 01/13/25 trazodone 100 mg tablet 100 mg PO BEDTIME 01/13/25 01/13/25 Previous Rx's ?Medication ?Instructions ?Recorded ondansetron 4 mg disintegrating 4 mg PO Q8H PRN nausea and 01/13/25 tablet vomiting 4 days #12 tabs polyethylene glycol 3350 17 gram 17 g PO DAILY 14 days #14 ea 01/13/25 oral powder packet (Miralax) Allergies Allergy/AdvReac Type Severity Reaction Status Date / Time amoxicillin (AMOXICILLIN) Allergy Unknown ANAPHYLAXIS Verified 04/20/25 19:34 clindamycin (CLINDAMYCIN) Allergy Unknown NAUSEA & Verified 04/20/25 19:34 VOMITING codeine (CODEINE) Allergy Unknown NAUSEA & Verified 04/20/25 19:34 VOMITING prochlorperazine (From Allergy Unknown DRY MOUTH Verified 04/20/25 19:34 COMPAZINE) Review of Systems Review of Systems Positive abdominal pain Yes all other systems are reviewed and are negative [facility] Past Medical History Attestation statement: The following information was validated with the patient. Social History Social History Advance Directives: No Advance Directives Information Provided: No Physical Exam ED Exam Exam: Appearance: Alert. Oriented X3. No acute distress. Eyes: Pupils equal, round and reactive to light. ENT: Pharynx normal. Neck: Normal inspection. Neck supple. No lymph nodes noted. No crepitus CVS: Normal heart rate and rhythm. Pulses normal. Normal S1 and S2 Respiratory: No respiratory distress. Breath sounds normal. No Wheezing. No rales Abdomen: Soft and nontender. No rigidity. No distention. good BS x4 Skin: Skin warm and dry. Normal skin color. Normal skin turgor. Extremities: No lower extremity edema. Neurovascular intact to all extremities. No Lacerations. No Rash Neuro: Oriented X 3. No motor deficit. No sensory deficit. Moving all extermities. No slurred speech Vital Signs: Vital Signs - 24 hr 04/20/25 19:30 04/20/25 23:50 Temperature 97.6 F 98.3 F Pulse Rate 58 61 Respiratory Rate 15 18 Blood Pressure 145/68 H 187/77 H Pulse Oximetry 98 98 Oxygen Delivery Method Room Air Room Air BMI result Body Mass Index 19.8 Medical Decision Making Medical Decision Making MDM Narrative: Significantly elevated LFTs. AST significantly more elevated than ALT. Question etiology patient denies drinking alcohol. Also had a significantly elevated white count. A CT scan of the abdomen pelvis was ordered. Patient currently is in no pain the pain resolved upon arrival in the ED. Patient's white count elevated. LFT elevated. CT scan of the abdomen pelvis positive for evidence for cholecystitis. Antibiotic was started. Ultrasound ordered. Surgery consulted. Surgery agreed patient should be admitted. Ultrasound is still pending. Differential Diagnosis Differential Diagnoses: The differential diagnosis associated with the presentation includes Cholecystitis, mass, appendicitis, kidney stone, UTI, obstruction Admission/Observation Consideration of admission/observation: Escalation of care including admission/observation considered Lab Data 04/20/25 19:42 04/20/25 19:42 Labs: Lab Results 04/20/25 04/20/25 Range/Units 19:42 22:11 WBC 15.6 H (4.8-10.8) X10*3/uL RBC 4.34 (4.20-5.50) X10*6/uL Hgb 13.4 (12.0-16.0) g/dl Hct 37.5 (37.0-47.0) % MCV 86.4 (80.0-98.0) fL MCH 30.9 (27.0-33.0) pg MCHC 35.7 H (31.0-35.0) g/dl RDW 13.2 (11.0-16.0) % Plt Count 180 D (160-400) X10*3/uL MPV 10.6 (9.4-12.3) fL Immature Gran % (Auto) 0.3 (0.0-0.4) % Neut % (Auto) 78.5 H (45-73) % Lymph % (Auto) 13.8 L (20-40) % [place] % (Auto) 6.2 (2-11) % Eos % (Auto) 0.8 (0-4) % Baso % (Auto) 0.4 (0-2) % Lymph # (Auto) 2.2 (1.2-4.9) X10*3/uL [place] # (Auto) 1.0 (0.1-1.2) X10*3/uL Eos # (Auto) 0.1 (0.0-0.4) X10*3/uL Baso # (Auto) 0.1 (0.0-0.2) X10*3/uL Abs Immat Gran (auto) 0.05 H (0.00-0.03) X10*3/uL Absolute Neuts (auto) 12.2 H (2.0-8.3) x10*3/uL Absolute Nucleated RBC 0.000 (0.0-0.012) X10*3/uL Nucleated RBC % (auto) 0.0 (0.0-0.2) /100WBC Sodium 138 (135-145) mmol/L Potassium 3.9 (3.3-5.1) mmol/L Chloride 104 (96-108) mmol/L Carbon Dioxide 21 L (22-29) mmol/L Anion Gap 17 (12-20) BUN 18 H (9-16) mg/dL Creatinine 0.95 (0.5-1.4) mg/dL Estim Creat Clear Calc 39.6 Estimated GFR 58 Random Glucose 118 H (60-115) mg/dL Calcium 10.3 H (8.4-10.2) mg/dL Total Bilirubin 1.5 H (0.0-1.0) mg/dL AST 356 H (5-31) U/L ALT 150 H (0-31) U/L Alkaline Phosphatase 236 H (39-117) U/L Total Protein 7.3 (6.5-8.0) g/dL Albumin 4.5 (3.5-5.0) g/dL Urine Color Yellow Urine Appearance Clear Urine pH 8.0 (5.0-9.0) Ur Specific [place] 1.015 (1.005-1.025) Urine Protein 30 (1+) H (Neg-Trace) mg/dL Urine Glucose (UA) Negative (Negative) mg/dL Urine Ketones Negative (Negative) mg/dL Urine Blood Negative (Negative) Urine Nitrite Negative (Negative) Ur Leukocyte Esterase Moderate (2+) H (Negative) Urine RBC 0-2 (0-2) /HPF Urine WBC 11-20 H (0-5) /HPF Ur Squamous Epith Cells 0-2 (0-2) /HPF Urine Bacteria 4+ (None Seen) Hyaline Casts 0-2 (0-2) /LPF Ethyl Alcohol < 10 mg/dL Medications Administered Discontinued Medications Generic Name Dose Route Start Last Admin Trade Name Freq PRN Reason Stop Dose Admin Iohexol 85 ml 04/20/25 23:13 04/20/25 23:18 Iohexol 350 Mg/Ml 100 Ml Infus..Btl IV 04/20/25 23:14 85 ml ONCE ONE Administration Discharge Plan Discharge Clinical Impression: Acute cholecystitis Patient Disposition: Admitted As Inpatient Print Language: Belarusian
[2025-04-20 23:00] VITALS: O2SAT 78
[2025-04-20] MEDS: iohexoL 350 MG/ML 100 ML INFUS..BTL 85 ML IV (23:18)
[2025-04-20 23:21] LABS: Appearance Urine Clear; Glucose Urine UA Negative (Negative); PH 8.0 (5.0-9.0); Specific Gravity - Urine 1.015 (1.005-1.025); UMIC TRIGGER UACC YES
[2025-04-20 23:28] LABS: UACC Culture Trigger YES
[2025-04-20 23:50] VITALS: BP 187/77; PULSE 61; RESP 18; TEMP 36.8; O2SAT 98
[2025-04-21] VITALS (10 sets, daily range): BP systolic 130–181; BP diastolic 57–90; PULSE 56–71; RESP 16–20; TEMP 36.1–36.6; O2SAT 92–98; BMI 21.3
[2025-04-21] MEDS: metroNIDAZOLE/NS 500 MG/100 ML PIGGYBACK 100 MG IV ×3 (02:05→18:16)
--- NOTE | 2025-04-21 03:24 | PC.NURSE ---
Pt medicated before transfer per SEP. Cipro not in ED pyxis- intelligence support officer and floor RN made aware. Pt to be given cipro IV on unit.
[2025-04-21 06:15] LABS: MANUAL DIFF FLAG NO
[2025-04-21 06:20] LABS: Hematocrit 34.9 % (37.0-47.0); Hemoglobin 12.2 g/dl (12.0-16.0); Imm Gran Abs Auto 0.02 X10*3/uL (0.00-0.03); Imm Gran Pct Auto 0.3 % (0.0-0.4); Lymphocytes Absolute Auto 1.5 X10*3/uL (1.2-4.9); Mean Corpuscular HGB Conc 35.0 g/dl (31.0-35.0); Mean Corpuscular Hemoglobin 30.8 pg (27.0-33.0); Mean Corpuscular Volume 88.1 fL (80.0-98.0); NRBC Abs Auto 0.000 X10*3/uL (0.0-0.012); NRBC Pct Auto 0.0 /100WBC (0.0-0.2); Platelet Count 145 X10*3/uL (160-400); Red Blood Count 3.96 X10*6/uL (4.20-5.50); White Blood Count 8.0 X10*3/uL (4.8-10.8)
[2025-04-21 06:42] LABS: Alanine Aminotransferase 226 U/L (0-31); Albumin Level 4.2 g/dL (3.5-5.0); Alkaline Phosphatase 226 U/L (39-117); Anion Gap 12 (12-20); Aspartate Amino Transferase 347 U/L (5-31); Blood Urea Nitrogen 15 mg/dL (9-16); Calcium 9.8 mg/dL (8.4-10.2); Carbon Dioxide 27 mmol/L (22-29); Chloride 103 mmol/L (96-108); Creatinine Clr Calc Pharmacy 41.5; Estimated Glomerular Filt Rate > 60; Potassium 4.0 mmol/L (3.3-5.1); Sodium 138 mmol/L (135-145); Total Protein 6.7 g/dL (6.5-8.0)
--- NOTE | 2025-04-21 08:47 | PHA.MEDREC ---
Pharmacy Consult ? Medication Reconciliation Pharmacy has completed the medication reconciliation. Spoke to patient and at bedside, noted she takes baby aspirin daily, no longer takes atorvastatin. Has not had Mirbetriq refilled but should be taking (LF 02/27/25 x 30 days).
--- NOTE | 2025-04-21 10:04 | PC.NURSE ---
Dr. Daniels made aware via tiger text at 0914 pt BP continues to be elevated, last two SBP in the 180s, pt currently asymptomatic. Pt normally takes Amlodipine at home. Per MD 10mg amlodipine given PO. Pending blood pressure reassessment.
--- NOTE | 2025-04-21 11:53 | HO.ANESPROP2 ---
HPI - Anesthesia Eval Consult details Narrative: Acute cholecystitis PMFSH Active Problems Active Problems: All Active Problems Acute cholecystitis (Acute) Nausea (Acute) Abdominal discomfort (Acute) Bug bite without infection (Acute) Past Medical History Medical History (Updated 04/21/25 @ 13:32 by Ernst Ferrari MD) Myocardial infarction CAD (coronary artery disease) Hypercholesteremia Hypertension Family History Family history of problems with anesthesia: No Surgical History Surgical History (Updated 04/21/25 @ 13:32 by Ernst Ferrari MD) History of PTCA History of Problems with Anesthesia: No Social History Social History Household Members: Spouse Housing: Condominium Do you presently have visiting nurse or other home services: No Patient Tobacco Use Status: Never used Tobacco Smoked in Last 30 Days: No Use of substances other than those prescribed or required for medical reasons: No Currently Displaying Signs/Symptoms of Drug Intoxication Withdrawal: No Have you been hit, kicked, punched, or otherwise hurt by someone within the past year? If so, by whom?: No Do you feel safe in your current relationship?: Yes Is there a partner from a previous relationship who is making you feel unsafe now?: No Are you made to feel afraid or neglected: No Advance Directives: No Advance Directives Information Provided: No Do you have a plan to hurt others: No Plan Recently lost weight without trying: Yes How much weight loss: 34pounds or more Eating poorly because of decreased appetite: Yes Nutrition screen score: 7 Nutrition Risks: No Nutritional Risk Patient : No : No Poor oral hygiene: No Meds Allergies Allergy/AdvReac Type Severity Reaction Status Date / Time amoxicillin (AMOXICILLIN) Allergy Unknown ANAPHYLAXIS Verified 04/20/25 19:34 clindamycin (CLINDAMYCIN) Allergy Unknown NAUSEA & Verified 04/20/25 19:34 VOMITING codeine (CODEINE) Allergy Unknown NAUSEA & Verified 04/20/25 19:34 VOMITING prochlorperazine (From Allergy Unknown DRY MOUTH Verified 04/20/25 19:34 COMPAZINE) Active Medications: Current Medications Acetaminophen (Acetaminophen 325 Mg Tablet) 650 mg PO Q6H PRN PRN Reason: Pain, Mild 1-3,fever,headache Amlodipine Besylate (Amlodipine Besylate 10 Mg Tablet) 10 mg PO DAILY XU; Protocol Last Admin: 04/21/25 09:55 Dose: 10 mg Sodium Chloride (Ns) 1,000 mls @ 100 mls/hr IVCONT .Q10H [facility] Last Infusion: 04/21/25 04:45 Dose: 100 mls/hr Metronidazole (Flagyl) 500 mg in 100 mls @ 100 mls/hr IV Q8H [facility] Last Admin: 04/21/25 10:38 Dose: 100 mls/hr Ciprofloxacin (Cipro) 400 mg in 200 mls @ 200 mls/hr IV Q12H [facility] Ketorolac Tromethamine (Ketorolac Tromethamine 15 Mg/Ml Vial) 15 mg IVPUSH Q6H [facility] Last Admin: 04/21/25 10:45 Dose: 15 mg Melatonin (Melatonin 3 Mg Tablet) 6 mg PO BEDTIME PRN PRN Reason: Insomnia Ondansetron HCl (Ondansetron Hcl 4 Mg/2 Ml Vial) 4 mg IVPUSH Q8H PRN PRN Reason: Nausea and Vomiting Pantoprazole Sodium (Pantoprazole Sodium 40 Mg/10 Ml Vial) 40 mg IVPUSH DAILY@06 [facility] Last Admin: 04/21/25 05:20 Dose: 40 mg Sodium Chloride (0.9 % Sodium Chloride Flush 3 Ml Syringe) 3 ml IVFLUSH QSHIFT [facility] Last Admin: 04/21/25 07:48 Dose: Not Given Home Medications ?Medication ?Instructions ?Recorded ?Confirmed ?Last Taken ?Type amlodipine 5 mg tablet 10 mg PO DAILY 12/26/24 04/21/25 04/19/25 History mirabegron 50 mg tablet,extended 50 mg PO DAILY 12/26/24 04/21/25 04/19/25 History release 24 hr pantoprazole 20 mg tablet,delayed 20 mg PO DAILY@0630 12/26/24 04/21/25 04/19/25 History release atorvastatin 40 mg tablet 40 mg PO DAILY 01/13/25 04/21/25 04/19/25 History trazodone 100 mg tablet 100 mg PO BEDTIME 01/13/25 04/21/25 04/19/25 History aspirin 81 mg tablet,delayed 81 mg PO DAILY 04/21/25 04/21/25 04/19/25 History release multivitamin 1 tab PO DAILY 04/21/25 04/21/25 04/19/25 History Exam Height,Weight and Vital Signs: Height 5 ft 1 in Weight 51.1 kg Last Vital Signs Temp 97.7 F 04/21/25 08:00 Pulse 56 04/21/25 08:00 Resp 20 04/21/25 08:00 BP 180/90 H 04/21/25 09:55 Pulse Ox 97 04/21/25 08:00 O2 Del Method Room Air 04/21/25 08:00 Pertinent Lab Results Pertinent Lab Results: Laboratory Tests 04/20/25 04/20/25 04/21/25 19:42 22:11 05:59 WBC 15.6 H 8.0 RBC 4.34 3.96 L Hgb 13.4 12.2 Hct 37.5 34.9 L MCV 86.4 88.1 MCH 30.9 30.8 MCHC 35.7 H 35.0 RDW 13.2 13.3 Plt Count 180 D 145 L MPV 10.6 10.6 Immature Gran % (Auto) 0.3 0.3 Neut % (Auto) 78.5 H 73.3 H Lymph % (Auto) 13.8 L 18.2 L [place] % (Auto) 6.2 6.9 Eos % (Auto) 0.8 0.8 Baso % (Auto) 0.4 0.5 Lymph # (Auto) 2.2 1.5 [place] # (Auto) 1.0 0.6 Eos # (Auto) 0.1 0.1 Baso # (Auto) 0.1 0.0 Abs Immat Gran (auto) 0.05 H 0.02 Absolute Neuts (auto) 12.2 H 5.8 Absolute Nucleated RBC 0.000 0.000 Nucleated RBC % (auto) 0.0 0.0 Sodium 138 138 Potassium 3.9 4.0 Chloride 104 103 Carbon Dioxide 21 L 27 Anion Gap 17 12 BUN 18 H 15 Creatinine 0.95 0.91 Estim Creat Clear Calc 39.6 41.5 Estimated GFR 58 > 60 Random Glucose 118 H 92 Calcium 10.3 H 9.8 Total Bilirubin 1.5 H 1.2 H AST 356 H 347 H ALT 150 H 226 H Alkaline Phosphatase 236 H 226 H Total Protein 7.3 6.7 Albumin 4.5 4.2 Urine Color Yellow Urine Appearance Clear Urine pH 8.0 Ur Specific [place] 1.015 Urine Protein 30 (1+) H Urine Glucose (UA) Negative Urine Ketones Negative Urine Blood Negative Urine Nitrite Negative Ur Leukocyte Esterase Moderate (2+) H Urine RBC 0-2 Urine WBC 11-20 H Ur Squamous Epith Cells 0-2 Urine Bacteria 4+ Hyaline Casts 0-2 Ethyl Alcohol < 10 Airway Mallampati Class: I TM Dist: >3cm Neck ROM: Full Loose/Missing/Broken Teeth: No Heart: RRR Lungs: CTA Assessment and Plan Assessment Anesthesia Assessment: Anesthesia Plan Discussed and Chart Reviewed Final Anesthetic Review Family History of Problems with Anesthesia: No History of Problems with Anesthesia: No NPO: Yes ASA Class: II and Emergency Final Preanesthetic Review: No Changes in Pt Med Stat, Meds/Allgs Chart Reviewed and Anes Risks/Benef Reviewed Patient Risk: Intermediate Procedure Risk: Intermediate Anesthetic Plan Anesthetic Plan: GA Disposition: Standard PACU
--- NOTE | 2025-04-21 12:40 | PM.HPGS ---
History of Present Illness History of Present Illness Date of Service: 04/21/25 Chief complaint: Abdominal Pain Narrative: Margie Giang is a 74 year old female who comes into the hospital complaining abdominal pain ruq radiation to back some nausea no vomiting. on workup thickened gallbaldd with elevated lfts and consistent with cholecystitis. Review of Systems Review of Systems: Yes all other systems are reviewed and are negative PMFSH Social History Social History Household Members: Spouse [facility] Do you presently have visiting nurse or other home services: No Patient Tobacco Use Status: Never used Tobacco Smoked in Last 30 Days: No Use of substances other than those prescribed or required for medical reasons: No Currently Displaying Signs/Symptoms of Drug Intoxication Withdrawal: No Have you been hit, kicked, punched, or otherwise hurt by someone within the past year? If so, by whom?: No Do you feel safe in your current relationship?: Yes Is there a partner from a previous relationship who is making you feel unsafe now?: No Are you made to feel afraid or neglected: No Advance Directives: No Advance Directives Information Provided: No Do you have a plan to hurt others: No Plan Recently lost weight without trying: Yes How much weight loss: 34pounds or more Eating poorly because of decreased appetite: Yes Nutrition screen score: 7 Nutrition Risks: No Nutritional Risk Patient : No : No Poor oral hygiene: No Meds Allergies Allergy/AdvReac Type Severity Reaction Status Date / Time amoxicillin (AMOXICILLIN) Allergy Unknown ANAPHYLAXIS Verified 04/20/25 19:34 clindamycin (CLINDAMYCIN) Allergy Unknown NAUSEA & Verified 04/20/25 19:34 VOMITING codeine (CODEINE) Allergy Unknown NAUSEA & Verified 04/20/25 19:34 VOMITING prochlorperazine (From Allergy Unknown DRY MOUTH Verified 04/20/25 19:34 COMPAZINE) Active Medications: Current Medications Acetaminophen (Acetaminophen 325 Mg Tablet) 650 mg PO Q6H PRN PRN Reason: Pain, Mild 1-3,fever,headache Amlodipine Besylate (Amlodipine Besylate 10 Mg Tablet) 10 mg PO DAILY XU; Protocol Last Admin: 04/21/25 09:55 Dose: 10 mg Droperidol (Droperidol 5 Mg/2 Ml Vial) 0.625 mg IVPUSH ONCE PRN PRN Reason: intractable nausea Stop: 04/21/25 17:56 Fentanyl (Fentanyl Citrate/Pf 100 Mcg/2 Ml Vial) 50 mcg IVPUSH Q5M PRN PRN Reason: Pain, Moderate to Severe (Pain Scale 4-10) Stop: 04/21/25 17:56 Hydromorphone HCl (Hydromorphone Hcl 0.5 Mg/0.5 Ml Syringe) 0.5 mg IVPUSH Q5M PRN PRN Reason: Pain, Moderate to Severe (Pain Scale 4-10) Stop: 04/21/25 17:56 Sodium Chloride (Ns) 1,000 mls @ 100 mls/hr IVCONT .Q10H [facility] Last Infusion: 04/21/25 04:45 Dose: 100 mls/hr Metronidazole (Flagyl) 500 mg in 100 mls @ 100 mls/hr IV Q8H [facility] Last Infusion: 04/21/25 12:01 Dose: Infused Ciprofloxacin (Cipro) 400 mg in 200 mls @ 200 mls/hr IV Q12H [facility] Acetaminophen (Ofirmev) 1,000 mg in 100 mls @ 400 mls/hr IV ONCE PRN PRN Reason: Pain, Mild (Pain Scale 1-3) Stop: 04/21/25 17:56 Ketorolac Tromethamine (Ketorolac Tromethamine 15 Mg/Ml Vial) 15 mg IVPUSH Q6H [facility] Last Admin: 04/21/25 10:45 Dose: 15 mg Melatonin (Melatonin 3 Mg Tablet) 6 mg PO BEDTIME PRN PRN Reason: Insomnia Naloxone HCl (Naloxone Hcl 0.4 Mg/Ml Vial) 0.04 mg IVPUSH Q5M PRN PRN Reason: Excessive sedation or RR < 8 Ondansetron HCl (Ondansetron Hcl 4 Mg/2 Ml Vial) 4 mg IVPUSH Q8H PRN PRN Reason: Nausea and Vomiting Ondansetron HCl (Ondansetron Hcl 4 Mg/2 Ml Vial) 4 mg IVPUSH ONCE PRN PRN Reason: Nausea and Vomiting Stop: 04/21/25 17:56 Pantoprazole Sodium (Pantoprazole Sodium 40 Mg/10 Ml Vial) 40 mg IVPUSH DAILY@0630 [facility] Last Admin: 04/21/25 05:20 Dose: 40 mg Sodium Chloride (0.9 % Sodium Chloride Flush 3 Ml Syringe) 3 ml IVFLUSH QSHIFT [facility] Last Admin: 04/21/25 07:48 Dose: Not Given Home Medications ?Medication ?Instructions ?Recorded ?Confirmed ?Last Taken ?Type amlodipine 5 mg tablet 10 mg PO DAILY 12/26/24 04/21/25 04/19/25 History mirabegron 50 mg tablet,extended 50 mg PO DAILY 12/26/24 04/21/25 04/19/25 History release 24 hr pantoprazole 20 mg tablet,delayed 20 mg PO DAILY@0630 12/26/24 04/21/25 04/19/25 History release atorvastatin 40 mg tablet 40 mg PO DAILY 01/13/25 04/21/25 04/19/25 History trazodone 100 mg tablet 100 mg PO BEDTIME 01/13/25 04/21/25 04/19/25 History aspirin 81 mg tablet,delayed 81 mg PO DAILY 04/21/25 04/21/25 04/19/25 History release multivitamin 1 tab PO DAILY 04/21/25 04/21/25 04/19/25 History Physical Exam Vital Signs: Vital Signs: Last Vital Signs Temp 97.7 F 04/21/25 08:00 Pulse 56 04/21/25 08:00 Resp 20 04/21/25 08:00 BP 178/84 H 04/21/25 11:57 Pulse Ox 97 04/21/25 08:00 O2 Del Method Room Air 04/21/25 08:00 BMI result Body Mass Index 21.3 Const: General: cooperative, healthy appearing and comfortable HEENT: Other: nonicteric Resp: Effort & Inspection: normal respiratory effort Auscultation: clear to auscultation bilaterally Cardio: Rate: regular rate Rhythm: regular rhythm GI: Other: soft tender ruq with guarding Results Results Labs: Short CBC 04/20/25 04/21/25 Range/Units 19:42 05:59 WBC 15.6 H 8.0 (4.8-10.8) X10*3/uL Hgb 13.4 12.2 (12.0-16.0) g/dl Hct 37.5 34.9 L (37.0-47.0) % Plt Count 180 D 145 L (160-400) X10*3/uL BMP 04/20/25 04/21/25 19:42 05:59 Sodium 138 138 Potassium 3.9 4.0 Chloride 104 103 Carbon Dioxide 21 L 27 BUN 18 H 15 Creatinine 0.95 0.91 Calcium 10.3 H 9.8 Liver Function 04/20/25 04/21/25 Range/Units 19:42 05:59 Total Bilirubin 1.5 H 1.2 H (0.0-1.0) mg/dL AST 356 H 347 H (5-31) U/L ALT 150 H 226 H (0-31) U/L Alkaline Phosphatase 236 H 226 H (39-117) U/L Albumin 4.5 4.2 (3.5-5.0) g/dL Urine 04/20/25 Range/Units 22:11 Urine Color Yellow Urine Appearance Clear Urine pH 8.0 (5.0-9.0) Ur Specific [place] 1.015 (1.005-1.025) Urine Protein 30 (1+) H (Neg-Trace) mg/dL Urine Glucose (UA) Negative (Negative) mg/dL Abdomen CT scan report/results: report reviewed and image reviewed CT scan - pelvis: report reviewed and image reviewed Additional studies: Signed Patient: Margie Giang MR#: [id number] : 1950 Acct:[id number] Age/Sex: 74 / F ADM Date: 04/21/25 Loc: [place] [address]: Paris Daniels MD Ordering Physician: Jacinda Skinner MD Date of Service: 04/21/25 Procedure(s): US abdomen limited Accession Number(s): [id number] cc: Jacinda Skinner MD; Tracee Diaz MD~ Reason for Exam: Right upper quadrant pain CLINICAL HISTORY: Right upper quadrant pain US abdomen limited Comparison: CT of the abdomen from 04/20/2025 Findings: Gallbladder wall thickening, pericholecystic fluid, and cholelithiasis are concerning for cholecystitis. Imaged CBD measures 9 mm diameter. No hydronephrosis of the partially imaged right kidney. Increased echogenicity of the liver relative to right kidney as can be seen with steatotic change. Mild periportal edema noted on the comparison study. No right upper quadrant ascites or right pleural effusion in the [id number]. Majority of the pancreas is obscured. IMPRESSION: 1. Gallbladder wall thickening, pericholecystic fluid, and cholelithiasis are concerning for cholecystitis. 2. Mild dilatation of the imaged CBD is nonspecific by ultrasound. This document has been electronically signed by: Yousif Ramirez MD on 04/21/2025 02:16:14 Dictated By: Yousif Ramirez MD Signed By: [address] [address] [address] Scan Report Signed Patient: Margie Giang MR#: [id number] : 1950 Acct:[id number] Age/Sex: 74 / F ADM Date: 04/20/25 Loc: [facility] Attending Dr: Ordering Physician: Jacinda Skinner MD Date of Service: 04/20/25 Procedure(s): CT abdomen pelvis w IV con Accession Number(s): [id number] cc: Jacinda Skinner MD; Tracee Diaz MD~ Report Number: [id number]: Total DLP = 269.00 mGy-cm Reason for Exam: right sided abd pain CLINICAL HISTORY: right sided abd pain CT abdomen and pelvis with contrast Comparison: X-ray of the abdomen from 01/13/2025 Findings: Mild bibasilar atelectasis and scarring. Mild cardiomegaly with multi chamber enlargement of the heart partially imaged. Gallbladder wall thickening, pericholecystic fluid, and cholelithiasis are concerning for cholecystitis. Mild periportal edema noted in the liver. Spleen approaches the upper limits of normal. Adrenal glands are partly obscured and otherwise unremarkable. Moderate volume loss of the pancreas noted. Imaged CBD measures 8 mm diameter. No hydronephrosis. No suspicious features of small cystic lesions in the kidney. Small mesenteric and retroperitoneal lymph nodes are nonspecific and likely reactive. Mild small bowel dilatation is nonspecific and may reflect ileus as can be seen from adjacent or separate inflammation. No definite small bowel obstruction at this time. Imaged appendix is within normal limits (image 64 series 3 and 43 of series 7). Severe stool burden is present, including the cecum. Densities may reflect ingested material including mildly patulous terminal ileum. Mild wall thickening of the urinary bladder is nonspecific. Uterus is absent. No adnexal soft tissue mass by CT. Metal artifacts noted likely postprocedural metal in the pelvis. Moderate height loss of the T9 compression fractures age indeterminate by CT and likely old/chronic given sclerosis. Vacuum disc phenomenon and disc bulge at L4-L5. Additional degenerative changes are multifocal with multifocal Schmorl's nodes. Facet arthropathy is also multifocal. Degenerative changes include imaged hips and SI joints. IMPRESSION: Gallbladder wall thickening, pericholecystic fluid, and cholelithiasis are concerning for cholecystitis. This document has been electronically signed by: Yousif Ramirez MD on 04/21/2025 00:18:14 Dictated By: Yousif Ramirez MD Signed By: <Electronically signed by Yousif Ramirez MD in OV> 04/21/2518 DD/ TD/TT: 04/21/2517 [employer] Helper: Assessment and Plan (1) Acute cholecystitis: Status: Acute Plan 74 year old female with acute cholecystitis plan lap leticia - risks and benefits discussed with pt including but not limited to bleeding infection bowel injury duct injury open procedure. she wishes to proceed. Quality Stroke Does the patient have a stroke diagnosis?: No VTE Prior VTE?: No VTE Risk Level:: Surgical - low VTE Device Contraindication: N/A - Device Ordered VTE Drug Contraindication: N/A - Med Ordered Procedures Date of Service Date of Service: 04/21/25
--- NOTE | 2025-04-21 16:05 | PC.NURSE ---
as we were getting ready to transfer patient to floor md rico stated she wanted her to be on a monitor. patient on monitor going up to floor. order is in for the floor nurse. will tell the nurse when we give bedside report.
--- NOTE | 2025-04-21 16:16 | PC.NURSE ---
BEDSIDE REPORT GIVEN TO SAMRA EASON-MADE HER AWARE OF THE PATIENT NEEDING TO BE ON A MONITOR.
--- NOTE | 2025-04-21 16:44 | ECG_ITS ---
Test Reason : chest heaviness Blood Pressure : */* mmHG Vent. Rate : 60 BPM Atrial Rate : 60 BPM P-R Int : 180 ms QRS Dur : 96 ms QT Int : 520 ms P-R-T Axes : 48 24 52 degrees QTcB Int : 520 ms Normal sinus rhythm Prolonged QT Abnormal ECG When compared with ECG of 03-Mar-2018 02:38, Premature ventricular complexes are no longer Present Referred By: Paris Daniels Electronically Signed By: MALENA WHITING
[2025-04-21 16:57] LABS: INTERNATIONAL NORM RATIO 1.2 (0.9-1.1); Prothrombin Time 14.3 SEC (10.9-12.4)
[2025-04-21 17:00] LABS: Partial Thromboplastin Time 30.6 SEC (26.7-34.1)
[2025-04-21 17:16] LABS: Magnesium 1.7 mg/dL (1.6-2.6)
--- NOTE | 2025-04-21 17:32 | HO.PM.IMCN ---
History of Present Illness Data of Consult Service Date: 04/21/25 Requesting physician: Paris Daniels Primary Care Provider: Tracee Cleaning MD [facility] Reason for consult: Medical management, cirrhosis liver intraoperative This is a 74-year-old female with history of coronary artery disease status post stent placement, hypertension, hyperlipidemia presents to the emergency department with abdominal pain. In the emergency department lab work as well as imaging studies were concerning for acute cholecystitis. She is admitted to the surgical service and was taken to the OR for cholecystectomy. During the procedure her liver appeared to be nodular and there was concern for cirrhosis therefore the hospitalists were asked to see the patient for evaluation. Following arrival to the floor from the PACU patient reported generalized chest pain, nausea, reported not feeling well. She says the pain is worse with palpation as well as with deep inspiration. She denies shortness or breath. EKG nonischemic but with prolonged QTC. Review of Systems Review of Systems: Yes all other systems are reviewed and are negative Constitutional: Constitutional: Denies chills and Denies fever(s) Cardiovascular: Cardiovascular: Reports chest pain, Denies palpitations and Denies dyspnea Respiratory: Respiratory: Denies cough and Denies dyspnea Gastrointestinal: Gastrointestinal: Reports abdominal pain Endocrine: Endocrine: Denies palpitations [facility] Medical History Myocardial infarction CAD (coronary artery disease) Hypercholesteremia Hypertension Surgical History History of PTCA Social History Household Members: Spouse Housing: Condominium Do you presently have visiting nurse or other home services: No Patient Tobacco Use Status: Never used Tobacco Smoked in Last 30 Days: No Use of substances other than those prescribed or required for medical reasons: No Currently Displaying Signs/Symptoms of Drug Intoxication Withdrawal: No Have you been hit, kicked, punched, or otherwise hurt by someone within the past year? If so, by whom?: No Do you feel safe in your current relationship?: Yes Is there a partner from a previous relationship who is making you feel unsafe now?: No Are you made to feel afraid or neglected: No Advance Directives: No Advance Directives Information Provided: No Do you have a plan to hurt others: No Plan Recently lost weight without trying: Yes How much weight loss: 34pounds or more Eating poorly because of decreased appetite: Yes Nutrition screen score: 7 Nutrition Risks: No Nutritional Risk Patient : No : No Poor oral hygiene: No Meds Allergies Allergy/AdvReac Type Severity Reaction Status Date / Time amoxicillin (AMOXICILLIN) Allergy Unknown ANAPHYLAXIS Verified 04/20/25 19:34 clindamycin (CLINDAMYCIN) Allergy Unknown NAUSEA & Verified 04/20/25 19:34 VOMITING codeine (CODEINE) Allergy Unknown NAUSEA & Verified 04/20/25 19:34 VOMITING prochlorperazine (From Allergy Unknown DRY MOUTH Verified 04/20/25 19:34 COMPAZINE) Active Medications: Current Medications Acetaminophen (Acetaminophen 325 Mg Tablet) 650 mg PO Q6H PRN PRN Reason: Pain, Mild 1-3,fever,headache Amlodipine Besylate (Amlodipine Besylate 10 Mg Tablet) 10 mg PO DAILY XU; Protocol Droperidol (Droperidol 5 Mg/2 Ml Vial) 0.625 mg IVPUSH ONCE PRN PRN Reason: intractable nausea Stop: 04/21/25 17:56 Fentanyl (Fentanyl Citrate/Pf 100 Mcg/2 Ml Vial) 50 mcg IVPUSH Q5M PRN PRN Reason: Pain, Moderate to Severe (Pain Scale 4-10) Stop: 04/21/25 17:56 Hydralazine HCl (Hydralazine Hcl 20 Mg/Ml Vial) 5 mg IVPUSH Q6H PRN; Protocol PRN Reason: sbp>180 Hydromorphone HCl (Hydromorphone Hcl 0.5 Mg/0.5 Ml Syringe) 0.5 mg IVPUSH Q5M PRN PRN Reason: Pain, Moderate to Severe (Pain Scale 4-10) Stop: 04/21/25 17:56 Sodium Chloride (Ns) 1,000 mls @ 100 mls/hr IVCONT .Q10H [facility] Last Infusion: 04/21/25 17:17 Dose: Infused Metronidazole (Flagyl) 500 mg in 100 mls @ 100 mls/hr IV Q8H [facility] Last Infusion: 04/21/25 12:01 Dose: Infused Ciprofloxacin (Cipro) 400 mg in 200 mls @ 200 mls/hr IV Q12H [facility] Last Admin: 10/04/25 17:12 Dose: 200 mls/hr Acetaminophen (Ofirmev) 1,000 mg in 100 mls @ 400 mls/hr IV ONCE PRN PRN Reason: Pain, Mild (Pain Scale 1-3) Stop: 04/21/25 17:56 Magnesium Sulfate (Magnesium Sulfate/H2o) 2 gm in 50 mls @ 25 mls/hr IV ONCE ONE Stop: 04/21/25 19:20 Ketorolac Tromethamine (Ketorolac Tromethamine 15 Mg/Ml Vial) 15 mg IVPUSH Q6H [facility] On Hold: 04/21/25 16:20 Comment: Order held by Process Transfer Last Admin: 04/21/25 16:20 Dose: Not Given Melatonin (Melatonin 3 Mg Tablet) 6 mg PO BEDTIME PRN PRN Reason: Insomnia Morphine Sulfate (Morphine Sulfate 2 Mg/Ml Cartridge) 2 mg IVPUSH Q4H PRN; Protocol PRN Reason: Pain, Severe (Pain Scale 7-10) Naloxone HCl (Naloxone Hcl 0.4 Mg/Ml Vial) 0.04 mg IVPUSH Q5M PRN PRN Reason: Excessive sedation or RR < 8 Ondansetron HCl (Ondansetron Hcl 4 Mg/2 Ml Vial) 4 mg IVPUSH Q8H PRN PRN Reason: Nausea and Vomiting Ondansetron HCl (Ondansetron Hcl 4 Mg/2 Ml Vial) 4 mg IVPUSH ONCE PRN PRN Reason: Nausea and Vomiting Stop: 04/21/25 17:56 Oxycodone HCl (Oxycodone Hcl Immed Release 5 Mg Tablet) 5 mg PO Q4H PRN PRN Reason: Pain, Mild (Pain Scale 1-3) Oxycodone HCl (Oxycodone Hcl Immed Release 5 Mg Tablet) 10 mg PO Q4H PRN PRN Reason: Pain, Moderate(Pain Scale 4-6) Pantoprazole Sodium (Pantoprazole Sodium 40 Mg/10 Ml Vial) 40 mg IVPUSH DAILY@0630 [facility] Last Admin: 04/21/25 05:20 Dose: 40 mg Sodium Chloride (0.9 % Sodium Chloride Flush 3 Ml Syringe) 3 ml IVFLUSH QSHIFT [facility] Last Admin: 04/21/25 17:07 Dose: Not Given Trazodone HCl (Trazodone Hcl 100 Mg Tablet) 100 mg PO BEDTIME XU Home Medications ?Medication ?Instructions ?Recorded ?Confirmed ?Last Taken ?Type amlodipine 5 mg tablet 10 mg PO DAILY 12/26/24 04/21/25 04/19/25 History mirabegron 50 mg tablet,extended 50 mg PO DAILY 12/26/24 04/21/25 04/19/25 History release 24 hr pantoprazole 20 mg tablet,delayed 20 mg PO DAILY@0630 12/26/24 04/21/25 04/19/25 History release atorvastatin 40 mg tablet 40 mg PO DAILY 01/13/25 04/21/25 04/19/25 History trazodone 100 mg tablet 100 mg PO BEDTIME 01/13/25 04/21/25 04/19/25 History aspirin 81 mg tablet,delayed 81 mg PO DAILY 04/21/25 04/21/25 04/19/25 History release multivitamin 1 tab PO DAILY 04/21/25 04/21/25 04/19/25 History Physical Exam Vital Signs and Narrative: Vital Signs: Last Vital Signs Temp 97.9 F 04/21/25 16:00 Pulse 60 04/21/25 17:17 Resp 18 04/21/25 17:17 BP 176/78 H 04/21/25 17:24 Pulse Ox 98 04/21/25 17:17 O2 Del Method Nasal Cannula 04/21/25 17:17 O2 Flow Rate 2 04/21/25 17:17 BMI result Body Mass Index 21.3 Const: General: cooperative, alert and awake Nutritional Appearance: thin Orientation/consciousness: patient oriented x3 Resp: Effort & Inspection: normal respiratory effort, able to speak in complete sentences, no respiratory distress and no use of accessory muscles Cardio: Rate: regular rate GI: Other: dressings with some mild staining, DENNIS drain with dark oupt Neuro: General: patient oriented x3, moves all extremities and CN's II-XI intact bilaterally Results Labs 04/21/25 05:59 04/21/25 05:59 Labs: Laboratory Results - last 24 hr 04/20/25 04/20/25 04/21/25 19:42 22:11 05:59 MCV 86.4 88.1 MCH 30.9 30.8 MCHC 35.7 H 35.0 RDW 13.2 13.3 Plt Count 180 D 145 L MPV 10.6 10.6 Immature Gran % (Auto) 0.3 0.3 Neut % (Auto) 78.5 H 73.3 H Lymph % (Auto) 13.8 L 18.2 L Levy % (Auto) 6.2 6.9 Eos % (Auto) 0.8 0.8 Baso % (Auto) 0.4 0.5 Lymph # (Auto) 2.2 1.5 Levy # (Auto) 1.0 0.6 Eos # (Auto) 0.1 0.1 Baso # (Auto) 0.1 0.0 Abs Immat Gran (auto) 0.05 H 0.02 Absolute Neuts (auto) 12.2 H 5.8 Absolute Nucleated RBC 0.000 0.000 Nucleated RBC % (auto) 0.0 0.0 PT INR APTT Anion Gap 17 12 Estim Creat Clear Calc 39.6 41.5 Estimated GFR 58 > 60 Random Glucose 118 H 92 Calcium 10.3 H 9.8 Magnesium 1.7 Total Bilirubin 1.5 H 1.2 H AST 356 H 347 H ALT 150 H 226 H Alkaline Phosphatase 236 H 226 H Total Protein 7.3 6.7 Albumin 4.5 4.2 Urine Color Yellow Urine Appearance Clear Urine pH 8.0 Ur Specific [place] 1.015 Urine Protein 30 (1+) H Urine Glucose (UA) Negative Urine Ketones Negative Urine Blood Negative Urine Nitrite Negative Ur Leukocyte Esterase Moderate (2+) H Urine RBC 0-2 Urine WBC 11-20 H Ur Squamous Epith Cells 0-2 Urine Bacteria 4+ Hyaline Casts 0-2 Ethyl Alcohol < 10 Blood Type Antibody Screen 04/21/25 16:45 MCV MCH MCHC RDW Plt Count MPV Immature Gran % (Auto) Neut % (Auto) Lymph % (Auto) Levy % (Auto) Eos % (Auto) Baso % (Auto) Lymph # (Auto) Levy # (Auto) Eos # (Auto) Baso # (Auto) Abs Immat Gran (auto) Absolute Neuts (auto) Absolute Nucleated RBC Nucleated RBC % (auto) PT 14.3 H INR 1.2 H APTT 30.6 Anion Gap Estim Creat Clear Calc Estimated GFR Random Glucose Calcium Magnesium Total Bilirubin AST ALT Alkaline Phosphatase Total Protein Albumin Urine Color Urine Appearance Urine pH Ur Specific [place] Urine Protein Urine Glucose (UA) Urine Ketones Urine Blood Urine Nitrite Ur Leukocyte Esterase Urine RBC Urine WBC Ur Squamous Epith Cells Urine Bacteria Hyaline Casts Ethyl Alcohol Blood Type O Positive Antibody Screen NEGATIVE Assessment and Plan (1) Chest pain: Status: Acute Plan This is a 74-year-old female with history of CAD s/p stent placement, hypertension who presented to the emergency department with abdominal pain found to have evidence of acute cholecystitis status post cholecystectomy 04/21 found to have concern for cirrhosis and now with chest pain Acute cholecystitis s/p laparoscopic cholecystectomy Management as per surgical team Chest pain h/o CAD EKG without acute ischemic changes check troponin CXR pending may be postoperative pain ASA on hold for surgery statin on hold for elevated LFTs prolonged qtc above 500 minimize use of qt prolonging meds if able mag 1.7, will give 2 gm IV follow levels will change cipro to ceftriaxone repeat EKG in am liver dysfunction Intraoperative visualization of liver concerning for cirrhosis LFTs thought to be elevated in the setting of acute cholecystitis but also somewhat elevated in the past INR 1.2 Denies the use of alcohol check hepatitis panel Trend LFT Recommend outpatient referral to GI constipation Bowel regimen HTN bp elevated likely in the setting of pain continue baseline norvasc prn hydralazine bacteruria no urinary symptoms on abx for cholecystitis follow urine culture DVT prophylaxis as per surgical team Thank you for allowing us to participate in the care of this patient. We will follow along with
[2025-04-21] MEDS: Magnesium Sulfate/H2O 2 GM/50 ML PIGGYBACK IV (17:49)
[2025-04-21 18:01] LABS: Troponin-I High Sensitivity 5.7 ng/L (<3.5-17.0)
--- NOTE | 2025-04-21 18:10 | W.PM.OPN ---
Operative Note Operative Note Date of Service: 04/21/25 Narrative: Preop diagnosis--acute cholecystitis Postop diagnosis--acute cholecystitis, cirrhosis of the liver Procedure--laparoscopic cholecystectomy Surgeon--Frances Anesthesia--general endotracheal tube anesthesia Patient is a 74-year-old female who presented with several day history of abdominal pain nausea and vomiting and tender in the right upper quadrant. She had an elevated white count LFTs were elevated and her gallbladder looked pretty stick on CT scan very thickened with pericholecystic fluid etc.. As a result it was decided to take her to the operating room to undergo laparoscopic cholecystectomy. Findings-- The patient did have changes consistent with acute cholecystitis however the gallbladder was not as thickened as noted on the CT scan and maybe even the ultrasound. It was surprising to see that the patient had very nodular stiff liver with the appearance of a cirrhotic liver. No no significant ascites fluid was noted. With removal of the gallbladder and dissection in the case raw tissue was very oozy and bleeding almost like she had some degree of coagulopathy present. Postop coags are being checked Procedure-- Patient was brought to the operative room under anesthesia guidance was intubated. She had compression stockings placed before induction received preoperative antibiotics. Her abdomen was prepped and draped in standard surgical fashion. An infraumbilical incision was created after now wound of the area with a 0.25% Marcaine with epinephrine and dissection was carried down to the anterior abdominal wall fascia which was grasped with Mary's and transected. 0 Vicryl pursestring suture placed in the Farias trocar introduced. Camera was introduced after pneumoperitoneum to 15 mmHg pressure was carried out. The gallbladder was identified in the right upper quadrant and immediately was noted how large and nodular the liver appeared. She did have some adhesions of omentum to the edge of the liver and the gallbladder. Three 5 mm ports were then placed under direct visualization using local 1 in the epigastric area into in the right upper quadrant area. The gallbladder was grasped and retracted superiorly and then laterally. The area where the cystic duct triangle of Calot area was seemingly somewhat shortened and there was some adhesions here and the stomach duodenum was bluntly taken down using a laparoscopic peanut in the [place]. The that is a point where we are able to now start to dissected the triangle of Calot area. The tissue was very oozy and bloody. I was able to dissect out the cystic duct with the cystic artery being identified behind it. In the process of grasping and retracting the gallbladder it tore and green bile was spilled and suctioned out. Some particulate material was suctioned out as well but no significant stones were spilled. A lot of time was taken to dissect out the structures to get as best of the critical view as possible. In the process we stayed very close to the gallbladder. Two clips were placed down and 1 up on the cystic duct area was transected similar fashion the cystic artery was clipped and transected with the scissors. Now dissecting back the gallbladder was taken off the liver bed with cautery and the clips on the cystic duct stump and artery were intact and looked good. At this point in the case the patient was little hypotensive secondary to some of the anesthesia gases. She eventually increased her blood pressure again but during this little on her blood pressure the liver base looks pretty good with hemostasis. Once her blood pressure increased there was more continuing ooze from the liver the peritoneum and the omentum area that we dissected off. A bleeding vessel at the liver base was identified and this was clipped and cauterized all around. Surgicel was used in the triangle of Calot area which was now really just the cystic duct stump and artery. Some snow was used in the liver bed as well. There was an area on the omentum that was bleeding and this was clipped and another piece of Surgicel left here. Throughout the case the area was suctioned and irrigated. By the end of the case fair hemostasis was encountered. Now a 7 DENNIS drain was left in place in the liver bed gallbladder fossa area. It was brought out on the right side. The gallbladder was removed from the infraumbilical port site and once again hemostasis obtained and all the structures evaluated. The did not appear to be any injury to any of the bowel there was no active bleeding noted. Ports were then removed under direct visualization. The infraumbilical pursestring was approximated in the 4-0 Monocryl was used to close the skin edges with Steri-Strips and dry dressings. Nylon stitch was used to secure the DENNIS drain tubing on the right side. At the end of the case all sponge instrument needle counts were correct estimated blood loss was about 150 cc. She returned stable to the recovery room DENNIS drain in place and her hemodynamics and blood pressure normalized. Specimens sent was the gallbladder
--- NOTE | 2025-04-21 18:16 | PC.NURSE ---
Addendum entered by Sophia La RN 04/21/25 18:39: Pt on tele monitor since arrival to unit, HR SB with frequent PVCs MD and PA aware. Original Note: 1600 Pt returned from PACU. At this time pt drowsy, but able to answer some questions. Pt abd dressing CDI, DENNIS drain to right lower abd with sanguineous fluid noted. 16:50 Pt states she feels generally unwell, endorsing back pain, abd pain, nausea, and chest heaviness. Per MD EKG, labs, and CXR ordered. per MT pts QTC prolonged. Medical consulted, 2gm IV mag ordered per CARLOS Viveros, once mag is infused pt can have zofran. 17:43 Rambissoon at bedside, pt continues to endorse sever pain 2mg IVP morphine given per SEP. Pending activeness. At this time dressing has some staining to umbilical dressing and blood noted on dressing around DENNIS site. Rambissoon aware. 18:34 DENNIS site assessed, blood noted to be leaking out from under DENNIS dressing site, CARLOS Viveros at bedside and assessed, dressing reinforced, DENNIS drain emptied for 30ML. No new orders at this time. Pt appears anxious, pt reassured and at bedside. No signs and symptoms of distress, BP is noted to be elevated MD and PA aware.
[2025-04-21 21:09] LABS: Hematocrit 36.4 % (37.0-47.0); Hemoglobin 12.5 g/dl (12.0-16.0)
[2025-04-21 21:29] LABS: Troponin-I High Sensitivity 10.7 ng/L (<3.5-17.0)
[2025-04-22] MEDS: metroNIDAZOLE/NS 500 MG/100 ML PIGGYBACK 100 MG IV ×3 (03:02→17:41)
[2025-04-22 03:43] VITALS: BP 164/82; PULSE 65; RESP 16; TEMP 36.1; O2SAT 99
[2025-04-22 07:15] LABS: MANUAL DIFF FLAG NO
[2025-04-22 07:30] LABS: Hematocrit 34.4 % (37.0-47.0); Hemoglobin 11.5 g/dl (12.0-16.0); Imm Gran Abs Auto 0.07 X10*3/uL (0.00-0.03); Imm Gran Pct Auto 0.6 % (0.0-0.4); Lymphocytes Absolute Auto 1.0 X10*3/uL (1.2-4.9); Mean Corpuscular HGB Conc 33.4 g/dl (31.0-35.0); Mean Corpuscular Hemoglobin 30.6 pg (27.0-33.0); Mean Corpuscular Volume 91.5 fL (80.0-98.0); NRBC Abs Auto 0.000 X10*3/uL (0.0-0.012); NRBC Pct Auto 0.0 /100WBC (0.0-0.2); Platelet Count 149 X10*3/uL (160-400); Red Blood Count 3.76 X10*6/uL (4.20-5.50); White Blood Count 11.7 X10*3/uL (4.8-10.8)
[2025-04-22 07:48] LABS: Alanine Aminotransferase 245 U/L (0-31); Albumin Level 3.6 g/dL (3.5-5.0); Alkaline Phosphatase 195 U/L (39-117); Anion Gap 12 (12-20); Aspartate Amino Transferase 326 U/L (5-31); Blood Urea Nitrogen 14 mg/dL (9-16); Calcium 8.9 mg/dL (8.4-10.2); Carbon Dioxide 24 mmol/L (22-29); Chloride 105 mmol/L (96-108); Creatinine Clr Calc Pharmacy 42.9; Estimated Glomerular Filt Rate > 60; Potassium 3.9 mmol/L (3.3-5.1); Sodium 137 mmol/L (135-145); Total Protein 6.0 g/dL (6.5-8.0)
[2025-04-22 07:57] LABS: Troponin-I High Sensitivity 7.7 ng/L (<3.5-17.0)
[2025-04-22 08:25] VITALS: BP 169/74; PULSE 68; RESP 20; TEMP 36.3; O2SAT 92
[2025-04-22] MEDS: 0.9 % Sodium Chloride Flush 3 ML SYRINGE IVFLUSH ×2 (09:05→20:09)
--- NOTE | 2025-04-22 10:39 | PC.NURSE ---
Pt OOB to chair, with 1-2 assist and walker. Was able to take a couple of steps. Teaching provided for use of incentive spirometer. all safety measure in place.
--- NOTE | 2025-04-22 11:22 | HO.POSTANES ---
Post Anesthesia Evaluation Post Anesthesia Evaluation Date of Service: 04/22/25 Vital Signs: Vital Signs Temp Pulse Resp BP Pulse Ox O2 Del Method O2 Flow Rate 04/22/25 08:25 97.4 F 68 20 169/74 H 92 Room Air 04/22/25 03:43 97 F 65 16 164/82 H 99 Nasal Cannula 2 Anesthesia: General Endotracheal-GETA Mental Status: Awake Pain Control: Satisfactory Nausea/Vomiting: None Hydration: Adequate Anesthesia-Related Issues: No Anes. Related Issues
--- NOTE | 2025-04-22 15:20 | P.PNGS_ITS ---
Subjective Subjective Date of Service: 04/23/25 Interval history: Patient is feeling better today with her abdomen and back pain somewhat improved. Thinking that this may have been secondary to the gas from her laparoscopic surgery yesterday. LFTs are still elevated. Overall she feels improved no significant nausea pain better controlled. DENNIS putting out dark fluid. Physical Exam 2 Vital Signs: Vital Signs: Last Vital Signs Temp 97.4 F 04/22/25 08:25 Pulse 68 04/22/25 08:25 Resp 20 04/22/25 08:25 BP 169/74 H 04/22/25 08:25 Pulse Ox 92 04/22/25 08:25 O2 Del Method Room Air 04/22/25 08:25 O2 Flow Rate 2 04/22/25 03:43 BMI result Body Mass Index 21.3 Const: General: cooperative, comfortable, no acute distress and anxious Eyes: Other: Nonicteric Resp: Auscultation: clear to auscultation bilaterally Cardio: Rate: regular rate Rhythm: regular rhythm GI: Other: Abdomen is soft tender in the right upper quadrant appropriate guarding no rebound no peritoneal signs. DENNIS drain showing dark fluid about 120 cc status post surgery like old blood Objective Data Active Medications Acetaminophen (Acetaminophen 325 Mg Tablet) 650 mg PO Q6H PRN PRN Reason: Pain, Mild 1-3,fever,headache Amlodipine Besylate (Amlodipine Besylate 10 Mg Tablet) 10 mg PO DAILY [facility]; Protocol Last Admin: 04/22/25 09:01 Dose: 10 mg Documented By: GIGI Ceftriaxone Sodium (Ceftriaxone Sodium 1 Gm Vial) 1 gm IVPUSH Q24H [facility] Last Admin: 04/22/25 04:52 Dose: 1 gm Documented By: RUI Docusate Sodium (Docusate Sodium 100 Mg Capsule) 100 mg PO BID [facility] Last Admin: 04/22/25 09:17 Dose: 100 mg Documented By: GIGI Hydralazine HCl (Hydralazine Hcl 20 Mg/Ml Vial) 5 mg IVPUSH Q6H PRN; Protocol PRN Reason: sbp>180 Sodium Chloride (Ns) 1,000 mls @ 100 mls/hr IVCONT .Q10H [facility] Last Admin: 04/22/25 15:07 Dose: 100 mls/hr Documented By: MAMIE Metronidazole (Flagyl) 500 mg in 100 mls @ 100 mls/hr IV Q8H [facility] Last Infusion: 04/22/25 10:17 Dose: Infused Documented By: GIGI Ketorolac Tromethamine (Ketorolac Tromethamine 15 Mg/Ml Vial) 15 mg IVPUSH Q6H XU On Hold: 04/21/25 16:20 Comment: Order held by Process Transfer Last Admin: 04/21/25 16:20 Dose: Not Given Documented By: GIGI Non-Admin Reason: Off Unit: Surgery Melatonin (Melatonin 3 Mg Tablet) 6 mg PO BEDTIME PRN PRN Reason: Insomnia Morphine Sulfate (Morphine Sulfate 2 Mg/Ml Cartridge) 2 mg IVPUSH Q4H PRN; Protocol PRN Reason: Pain, Severe (Pain Scale 7-10) Last Admin: 04/22/25 15:07 Dose: 2 mg Documented By: MAMIE Naloxone HCl (Naloxone Hcl 0.4 Mg/Ml Vial) 0.04 mg IVPUSH Q5M PRN PRN Reason: Excessive sedation or RR < 8 Ondansetron HCl (Ondansetron Hcl 4 Mg/2 Ml Vial) 4 mg IVPUSH Q8H PRN PRN Reason: Nausea and Vomiting Last Admin: 04/21/25 18:48 Dose: 4 mg Documented By: GIGI Oxycodone HCl (Oxycodone Hcl Immed Release 5 Mg Tablet) 5 mg PO Q4H PRN PRN Reason: Pain, Mild (Pain Scale 1-3) Oxycodone HCl (Oxycodone Hcl Immed Release 5 Mg Tablet) 10 mg PO Q4H PRN PRN Reason: Pain, Moderate(Pain Scale 4-6) Pantoprazole Sodium (Pantoprazole Sodium 40 Mg/10 Ml Vial) 40 mg IVPUSH DAILY@0630 [facility] Last Admin: 04/22/25 04:52 Dose: 40 mg Documented By: RUI Polyethylene Glycol (Polyethylene Glycol 3350 17 Gm Powd.Pack) 17 gm PO DAILY PRN PRN Reason: Constipation Sodium Chloride (0.9 % Sodium Chloride Flush 3 Ml Syringe) 3 ml IVFLUSH QSHIFT [facility] Last Admin: 04/22/25 09:05 Dose: 3 ml Documented By: GIGI Trazodone HCl (Trazodone Hcl 100 Mg Tablet) 100 mg PO BEDTIME XU Last Admin: 04/21/25 20:25 Dose: 100 mg Documented By: RUI Labs 04/22/25 06:13 04/22/25 06:13 Labs: Laboratory Results - last 24 hr 04/21/25 04/21/25 04/21/25 05:59 16:45 17:33 MCV MCH MCHC RDW Plt Count MPV Immature Gran % (Auto) Neut % (Auto) Lymph % (Auto) [place] % (Auto) Eos % (Auto) Baso % (Auto) Lymph # (Auto) [place] # (Auto) Eos # (Auto) Baso # (Auto) Abs Immat Gran (auto) Absolute Neuts (auto) Absolute Nucleated RBC Nucleated RBC % (auto) Hold Purple Top SEE NOTE PT 14.3 H INR 1.2 H APTT 30.6 Anion Gap Estim Creat Clear Calc Estimated GFR Random Glucose Calcium Magnesium 1.7 Total Bilirubin AST ALT Alkaline Phosphatase Troponin I High Sens 5.7 Total Protein Albumin Blood Type O Positive Antibody Screen NEGATIVE 04/21/25 04/22/25 04/22/25 20:36 06:13 09:00 MCV 91.5 MCH 30.6 MCHC 33.4 RDW 13.7 Plt Count 149 L MPV 11.5 Immature Gran % (Auto) 0.6 H Neut % (Auto) 84.2 H Lymph % (Auto) 8.6 L [place] % (Auto) 6.2 Eos % (Auto) 0.1 Baso % (Auto) 0.3 Lymph # (Auto) 1.0 L [place] # (Auto) 0.7 Eos # (Auto) 0.0 Baso # (Auto) 0.0 Abs Immat Gran (auto) 0.07 H Absolute Neuts (auto) 9.9 H Absolute Nucleated RBC 0.000 Nucleated RBC % (auto) 0.0 Hold Purple Top SEE NOTE PT INR APTT Anion Gap 12 Estim Creat Clear Calc 42.9 Estimated GFR > 60 Random Glucose 103 Calcium 8.9 D Magnesium Total Bilirubin 2.0 H AST 326 H ALT 245 H Alkaline Phosphatase 195 H Troponin I High Sens 10.7 D 7.7 Total Protein 6.0 L Albumin 3.6 Blood Type Antibody Screen Microbiology Microbiology Results: Microbiology 04/20/25 Unknown Urine Culture - Preliminary Urine clean catch - Clean Catch Midstream Culture in progress. Procedures Date of Service Date of Service: 04/23/25 Progress Note: A&P Assessment and plan (1) Acute cholecystitis: Status: Acute Assessment and Plan: 74-year-old female status post laparoscopic cholecystectomy for acute cholecystitis but patient also noted to have very nodular liver that looked consistent with cirrhotic changes. Intraoperatively patient very oozy. Postop LFTs are elevated to do but consistent with cauterization etc.. Clinically she is feeling improved. Plan to advance her diet p.o. pain meds continue with DENNIS drain and re-evaluate LFTs tomorrow. Appreciate medical team following through ruling out any significant cardiac event. Patient was noted to have a prolonged QT complex postoperatively as a result as on telemetry Time Spent With Patient Time: Total time managing care of this patient today ____ minutes. Quality Stroke Does the patient have a stroke diagnosis?: No VTE Prior VTE?: No VTE Risk Level:: Surgical - low VTE Device Contraindication: N/A - Device Ordered VTE Drug Contraindication: N/A - Med Ordered
[2025-04-22 15:28] VITALS: BP 151/56; PULSE 66; RESP 18; TEMP 36.7; O2SAT 95
--- NOTE | 2025-04-22 16:32 | MHC.CM.PN ---
CM ATTEMPTED TO MEET WITH PT, PROVIDER AND FAMILY MEMBERS BEDSIDE CM TO RETURN
[2025-04-22] MEDS: oxyCODONE HCl Immed Release 5 MG TABLET PO (17:46)
[2025-04-22 19:20] VITALS: BP 157/70; PULSE 73; RESP 18; TEMP 37; O2SAT 94
[2025-04-23] MEDS: metroNIDAZOLE/NS 500 MG/100 ML PIGGYBACK 100 MG IV ×3 (01:01→17:35)
[2025-04-23] MEDS: oxyCODONE HCl Immed Release 5 MG TABLET PO (01:01)
[2025-04-23 03:57] VITALS: BP 143/74; PULSE 77; RESP 18; TEMP 37.6; O2SAT 93
[2025-04-23] MEDS: 0.9 % Sodium Chloride Flush 3 ML SYRINGE IVFLUSH ×2 (05:39→17:43)
[2025-04-23 07:36] VITALS: BP 160/74; PULSE 73; RESP 16; TEMP 36.9; O2SAT 92
--- NOTE | 2025-04-23 07:39 | HO.PM.IMPN ---
Subjective Subjective Date of Service: 04/23/25 Interval History: F/U for s/p lap leticia Pain only moderately controlled Large amount of serosanguenous fluid in DENNIS drain Tolerating full diet No N/V Continues to have diarrhea Review of Systems Review of Systems: Yes all other systems are reviewed and are negative Physical Exam Exam: Exam: General: AOx3, no acute distress Resp: CTA bilaterally CVS: S1, S2, RRR GI: +BS, no distention, appropriate tenderness at surgical sites. DENNIS drain in place with large amount of serosanguineous drainage Skin: Warm, dry Neuro: Cranial nerves II-XII grossly intact bilaterally. Motor grossly intact bilaterally Extremities: No edema Psych: Appropriate affect Vital Signs: Vital Signs: Last Vital Signs Temp 98.4 F 04/23/25 07:36 Pulse 73 04/23/25 07:36 Resp 16 04/23/25 07:36 BP 160/74 H 04/23/25 07:36 Pulse Ox 92 04/23/25 07:36 O2 Del Method Room Air 04/23/25 07:36 O2 Flow Rate 2 04/22/25 03:43 BMI result Body Mass Index 21.3 Objective Data Active Medications Acetaminophen (Acetaminophen 325 Mg Tablet) 650 mg PO Q6H PRN PRN Reason: Pain, Mild 1-3,fever,headache Amlodipine Besylate (Amlodipine Besylate 10 Mg Tablet) 10 mg PO DAILY [facility]; Protocol Last Admin: 04/22/25 09:01 Dose: 10 mg Documented By: GIGI Ceftriaxone Sodium (Ceftriaxone Sodium 1 Gm Vial) 1 gm IVPUSH Q24H [facility] Last Admin: 04/23/25 05:35 Dose: 1 gm Documented By: ALVA Docusate Sodium (Docusate Sodium 100 Mg Capsule) 100 mg PO BID [facility] Last Admin: 04/22/25 20:09 Dose: 100 mg Documented By: MAMIE Hydralazine HCl (Hydralazine Hcl 20 Mg/Ml Vial) 5 mg IVPUSH Q6H PRN; Protocol PRN Reason: sbp>180 Metronidazole (Flagyl) 500 mg in 100 mls @ 100 mls/hr IV Q8H [facility] Last Infusion: 04/23/25 02:01 Dose: Infused Documented By: ALVA Ketorolac Tromethamine (Ketorolac Tromethamine 15 Mg/Ml Vial) 15 mg IVPUSH Q6H XU On Hold: 04/21/25 16:20 Comment: Order held by Process Transfer Last Admin: 04/21/25 16:20 Dose: Not Given Documented By: GIGI Non-Admin Reason: Off Unit: Surgery Melatonin (Melatonin 3 Mg Tablet) 6 mg PO BEDTIME PRN PRN Reason: Insomnia Morphine Sulfate (Morphine Sulfate 2 Mg/Ml Cartridge) 2 mg IVPUSH Q4H PRN; Protocol PRN Reason: Pain, Severe (Pain Scale 7-10) Last Admin: 04/22/25 20:17 Dose: 2 mg Documented By: MAMIE Naloxone HCl (Naloxone Hcl 0.4 Mg/Ml Vial) 0.04 mg IVPUSH Q5M PRN PRN Reason: Excessive sedation or RR < 8 Ondansetron HCl (Ondansetron Hcl 4 Mg/2 Ml Vial) 4 mg IVPUSH Q8H PRN PRN Reason: Nausea and Vomiting Last Admin: 04/21/25 18:48 Dose: 4 mg Documented By: GIGI Oxycodone HCl (Oxycodone Hcl Immed Release 5 Mg Tablet) 5 mg PO Q4H PRN PRN Reason: Pain, Mild (Pain Scale 1-3) Last Admin: 04/23/25 01:01 Dose: 5 mg Documented By: ALVA Oxycodone HCl (Oxycodone Hcl Immed Release 5 Mg Tablet) 10 mg PO Q4H PRN PRN Reason: Pain, Moderate(Pain Scale 4-6) Pantoprazole Sodium (Pantoprazole Sodium 40 Mg/10 Ml Vial) 40 mg IVPUSH DAILY@0630 [facility] Last Admin: 04/23/25 05:35 Dose: 40 mg Documented By: ALVA Polyethylene Glycol (Polyethylene Glycol 3350 17 Gm Powd.Pack) 17 gm PO DAILY PRN PRN Reason: Constipation Sodium Chloride (0.9 % Sodium Chloride Flush 3 Ml Syringe) 3 ml IVFLUSH QSHIFT [facility] Last Admin: 04/23/25 05:39 Dose: 3 ml Documented By: ALVA Trazodone HCl (Trazodone Hcl 100 Mg Tablet) 100 mg PO BEDTIME [facility] Last Admin: 04/22/25 20:09 Dose: 100 mg Documented By: MAMIE Labs 04/22/25 06:13 04/23/25 08:54 Labs: Laboratory Results - last 24 hr 04/22/25 04/22/25 06:13 09:00 Hold Purple Top SEE NOTE Anion Gap 12 Estim Creat Clear Calc 42.9 Estimated GFR > 60 Random Glucose 103 Calcium 8.9 D Total Bilirubin 2.0 H AST 326 H ALT 245 H Alkaline Phosphatase 195 H Troponin I High Sens 7.7 Total Protein 6.0 L Albumin 3.6 Microbiology Microbiology Results: Microbiology 04/20/25 Unknown Urine Culture - Preliminary Urine clean catch - Clean Catch Midstream Culture in progress. Assessment and Plan (1) Acute cholecystitis: Status: Acute Plan This is a 74-year-old female with history of CAD s/p stent placement, hypertension who presented to the emergency department with abdominal pain found to have evidence of acute cholecystitis status post cholecystectomy 04/21 found to have concern for cirrhosis and now with chest pain Acute cholecystitis s/p laparoscopic cholecystectomy Management as per surgical team Chest pain, resolved h/o CAD EKG without acute ischemic changes, troponin negative CXR negative Likely postoperative pain prolonged qtc above 500 minimize use of qt prolonging meds if able given 2 gm IV cipro changed to ceftriaxone repeat ekg in the am liver dysfunction Intraoperative visualization of liver concerning for cirrhosis LFTs thought to be elevated in the setting of acute cholecystitis but also somewhat elevated in the past INR 1.2 Denies the use of alcohol, hep panel negative LFTs trending downward Recommend outpatient referral to GI constipation Bowel regimen HTN bp elevated likely in the setting of pain continue baseline norvasc prn hydralazine bacteruria no urinary symptoms on abx for cholecystitis follow urine culture, currently growing gram negative rods DVT prophylaxis as per surgical team Quality Stroke Does the patient have a stroke diagnosis?: No VTE Prior VTE?: No VTE Risk Level:: Surgical - low VTE Device Contraindication: N/A - Device Ordered VTE Drug Contraindication: N/A - Med Ordered
[2025-04-23 08:03] LABS: HBS Num1 0.00 mIU/mL (0-7.99); HBc Num1 0.07 S/CO (0.00-0.79); HBsAGNum1 0.38 S/CO (0.00-0.99); Hepatitis B Surface Antigen Negative (Negative); ~HepC Num1 0.07 S/CO (0.00-0.79); ~Hepatitis B Surface Antibody NONREACTIVE (Nonreactive); ~Hepatitis C Antibody Nonreactive (Nonreactive)
--- NOTE | 2025-04-23 08:17 | PM.PNGS ---
Subjective Subjective Date of Service: 04/23/25 <Kenia Carmona PA-C - Last Filed: 04/23/25 08:21> 04/23/25 <Fabrizio Edward MD - Last Filed: 04/23/25 09:41> Interval history: Feels overall improved. Tolerating clear liquids, no significant appetite. <Kenia Carmona PA-C - Last Filed: 04/23/25 08:21> Physical Exam Vital Signs: Vital Signs: Last Vital Signs Temp 98.4 F 04/23/25 07:36 Pulse 73 04/23/25 07:36 Resp 16 04/23/25 07:36 BP 160/74 H 04/23/25 07:36 Pulse Ox 92 04/23/25 07:36 O2 Del Method Room Air 04/23/25 07:36 O2 Flow Rate 2 04/22/25 03:43 BMI result Body Mass Index 21.3 <Kenia Carmona PA-C - Last Filed: 04/23/25 08:21> Const: General: comfortable, no acute distress and alert <Kenia Carmona PA-C - Last Filed: 04/23/25 08:21> Orientation/consciousness: patient oriented x3 <MARCELLE Hayes Last Filed: 04/23/25 08:21> Resp: Effort & Inspection: normal respiratory effort <MARCELLE Hayes Last Filed: 04/23/25 08:21> GI: Other: dressings intact DENNIS with high serosanguineous output <Kenia Carmona PA-C - Last Filed: 04/23/25 08:21> Palpation (GI): Soft to palpation, Tenderness to palpation present (GI) (mild incisional) and no guarding <MARCELLE Hayes Last Filed: 04/23/25 08:21> Skin: General skin exam: no rashes or lesions noted and no jaundice <MARCELLE Hayes Last Filed: 04/23/25 08:21> Neuro: General: patient oriented x3 and moves all extremities <MARCELLE Hayes Last Filed: 04/23/25 08:21> Objective Data Active Medications Acetaminophen (Acetaminophen 325 Mg Tablet) 650 mg PO Q6H PRN PRN Reason: Pain, Mild 1-3,fever,headache Amlodipine Besylate (Amlodipine Besylate 10 Mg Tablet) 10 mg PO DAILY [facility]; Protocol Last Admin: 04/23/25 07:51 Dose: 10 mg Documented By: DEBO Ceftriaxone Sodium (Ceftriaxone Sodium 1 Gm Vial) 1 gm IVPUSH Q24H [facility] Last Admin: 04/23/25 05:35 Dose: 1 gm Documented By: ALVA Docusate Sodium (Docusate Sodium 100 Mg Capsule) 100 mg PO BID [facility] Last Admin: 04/23/25 07:52 Dose: 100 mg Documented By: DEBO Hydralazine HCl (Hydralazine Hcl 20 Mg/Ml Vial) 5 mg IVPUSH Q6H PRN; Protocol PRN Reason: sbp>180 Metronidazole (Flagyl) 500 mg in 100 mls @ 100 mls/hr IV Q8H [facility] Last Infusion: 04/23/25 02:01 Dose: Infused Documented By: ALVA Ketorolac Tromethamine (Ketorolac Tromethamine 15 Mg/Ml Vial) 15 mg IVPUSH Q6H [facility] On Hold: 04/21/25 16:20 Comment: Order held by Process Transfer Last Admin: 04/21/25 16:20 Dose: Not Given Documented By: GIGI Non-Admin Reason: Off Unit: Surgery Melatonin (Melatonin 3 Mg Tablet) 6 mg PO BEDTIME PRN PRN Reason: Insomnia Morphine Sulfate (Morphine Sulfate 2 Mg/Ml Cartridge) 2 mg IVPUSH Q4H PRN; Protocol PRN Reason: Pain, Severe (Pain Scale 7-10) Last Admin: 04/22/25 20:17 Dose: 2 mg Documented By: MAMIE Naloxone HCl (Naloxone Hcl 0.4 Mg/Ml Vial) 0.04 mg IVPUSH Q5M PRN PRN Reason: Excessive sedation or RR < 8 Ondansetron HCl (Ondansetron Hcl 4 Mg/2 Ml Vial) 4 mg IVPUSH Q8H PRN PRN Reason: Nausea and Vomiting Last Admin: 04/21/25 18:48 Dose: 4 mg Documented By: GIGI Oxycodone HCl (Oxycodone Hcl Immed Release 5 Mg Tablet) 5 mg PO Q4H PRN PRN Reason: Pain, Mild (Pain Scale 1-3) Last Admin: 04/23/25 01:01 Dose: 5 mg Documented By: ALVA Oxycodone HCl (Oxycodone Hcl Immed Release 5 Mg Tablet) 10 mg PO Q4H PRN PRN Reason: Pain, Moderate(Pain Scale 4-6) Pantoprazole Sodium (Pantoprazole Sodium 40 Mg/10 Ml Vial) 40 mg IVPUSH DAILY@0630 [facility] Last Admin: 04/23/25 05:35 Dose: 40 mg Documented By: ALVA Polyethylene Glycol (Polyethylene Glycol 3350 17 Gm Powd.Pack) 17 gm PO DAILY PRN PRN Reason: Constipation Sodium Chloride (0.9 % Sodium Chloride Flush 3 Ml Syringe) 3 ml IVFLUSH QSHIFT [facility] Last Admin: 04/23/25 05:39 Dose: 3 ml Documented By: ALVA Trazodone HCl (Trazodone Hcl 100 Mg Tablet) 100 mg PO BEDTIME [facility] Last Admin: 04/22/25 20:09 Dose: 100 mg Documented By: MAMIE <Kenia Carmona PA-C - Last Filed: 04/23/25 08:21> Labs CBC & Chem 7: 04/22/25 06:13 04/22/25 06:13 <Kenia Carmona PA-C - Last Filed: 04/23/25 08:21> Labs: Laboratory Results - last 24 hr 04/22/25 04/22/25 08:19 09:00 Hold Purple Top SEE NOTE Hep Bs Antigen Negative Hep Bs Antibody NONREACTIVE Hep B Core Total Ab Nonreactive Hepatitis C Ab (EIA) Nonreactive <Kenia Carmona PA-C - Last Filed: 04/23/25 08:21> Microbiology Microbiology Results: Microbiology 04/20/25 Unknown Urine Culture - Preliminary Urine clean catch - Clean Catch Midstream Culture in progress. <Kenia Carmona PA-C - Last Filed: 04/23/25 08:21> Procedures Date of Service Date of Service: 04/23/25 <Kenia Carmona PA-C - Last Filed: 04/23/25 08:21> 04/23/25 <Fabrizio Edward MD - Last Filed: 04/23/25 09:41> Progress Note: A&P Assessment and plan (1) Acute cholecystitis: Status: Acute <Kenia Carmona PA-C - Last Filed: 04/23/25 08:21> Assessment and Plan: Status post laparoscopic cholecystectomy She says she feels well overall Abdomen is soft and benign DENNIS drain in place - serosanguineous, high output High DENNIS drain output maybe from ascites versus irrigation fluid Okay to advance diet as tolerated Seen and examined independently We will follow DENNIS drain output today <Fabrizio Edward MD - Last Filed: 04/23/25 09:41> (2) Elevated liver enzymes: Status: Acute <Kenia Carmona PA-C - Last Filed: 04/23/25 08:21> Assessment and Plan: POD #2 s/p lap leticia. Found to have nodular liver intra op. Overall looks well. Abd overall benign. DENNIS serosanguineous high volume- ?irrigation fluid vs ascites. Will advance diet. Keep DENNIS drain in place. Awaiting repeat LFTs. <Kenia Carmona PA-C - Last Filed: 04/23/25 08:21> Time Spent With Patient Time: Total time managing care of this patient today ____ minutes. <Kenia Carmona PA-C - Last Filed: 04/23/25 08:21> Quality Stroke Does the patient have a stroke diagnosis?: No <Kenia Carmona PA-C - Last Filed: 04/23/25 08:21> VTE Prior VTE?: No <Kenia Carmona PA-C - Last Filed: 04/23/25 08:21> VTE Risk Level:: Surgical - low <Kenia Carmona PA-C - Last Filed: 04/23/25 08:21> VTE Device Contraindication: N/A - Device Ordered <Kenia Carmona PA-C - Last Filed: 04/23/25 08:21> VTE Drug Contraindication: N/A - Med Ordered <Kenia Carmona PA-C - Last Filed: 04/23/25 08:21>
[2025-04-23 09:41] LABS: Alanine Aminotransferase 159 U/L (0-31); Albumin Level 3.1 g/dL (3.5-5.0); Alkaline Phosphatase 175 U/L (39-117); Anion Gap 9 (12-20); Aspartate Amino Transferase 163 U/L (5-31); Blood Urea Nitrogen 18 mg/dL (9-16); Calcium 8.3 mg/dL (8.4-10.2); Carbon Dioxide 22 mmol/L (22-29); Chloride 110 mmol/L (96-108); Creatinine Clr Calc Pharmacy 45.5; Estimated Glomerular Filt Rate > 60; Potassium 3.3 mmol/L (3.3-5.1); Sodium 138 mmol/L (135-145); Total Protein 5.2 g/dL (6.5-8.0)
--- NOTE | 2025-04-23 14:22 | MHC.CLN ---
CONSULT REPORTED 34# OR MORE WEIGHT LOSS. NO TIMEFRAME SPECIFIED. REVIEW OF WEIGHT HX SHOWS WEIGHT ESSENTIALLY STABLE X 4 MONTHS. DIET RX: LOWFAT. RD TO MONITOR WEEKLY.
--- NOTE | 2025-04-23 14:55 | MHC.CM.PN ---
IMM delivered. Patient lives at home w/ . Functionally independent. Denies use of services or DME. PCP [facility] No HCP. CM provided education and offered assistance. Patient declined. DP: Home self care vs home w/ new VNA if dc w/ DENNIS drain in place. transport. CM will continue to follow.
[2025-04-23 15:38] VITALS: BP 145/68; PULSE 70; RESP 18; TEMP 36.6; O2SAT 96
[2025-04-23] MEDS: oxyCODONE HCl Immed Release 5 MG TABLET 10 MG PO (19:23)
[2025-04-23 20:00] VITALS: BP 160/70; PULSE 73; RESP 16; TEMP 36.9; O2SAT 95
[2025-04-24] VITALS (8 sets, daily range): BP systolic 135–191; BP diastolic 63–89; PULSE 63–73; RESP 16–18; TEMP 36.4–37.1; O2SAT 93–97
[2025-04-24] MEDS: 0.9 % Sodium Chloride Flush 3 ML SYRINGE IVFLUSH ×4 (01:03→20:58)
[2025-04-24] MEDS: metroNIDAZOLE/NS 500 MG/100 ML PIGGYBACK 100 MG IV ×2 (01:03→09:11)
--- NOTE | 2025-04-24 08:00 | ECG_ITS ---
Test Reason : PROLONGED QTC Blood Pressure : */* mmHG Vent. Rate : 60 BPM Atrial Rate : 60 BPM P-R Int : 168 ms QRS Dur : 98 ms QT Int : 458 ms P-R-T Axes : 28 6 16 degrees QTcB Int : 458 ms Normal sinus rhythm Minimal voltage criteria for LVH, may be normal variant ( [place] product ) Nonspecific ST abnormality Abnormal ECG When compared with ECG of 21-Apr-2025 16:49, QT has shortened Referred By: Ran Colon Electronically Signed By: SKYLAR ALVAREZ MD
--- NOTE | 2025-04-24 10:00 | P.PNGS_ITS ---
Subjective Subjective Date of Service: 04/25/25 Interval history: Denies significant abdominal pain tolerating diet DENNIS drain reported to still be high volume Physical Exam 2 Vital Signs: Vital Signs: Last Vital Signs Temp 98.2 F 04/24/25 07:27 Pulse 64 04/24/25 07:27 Resp 16 04/24/25 07:27 BP 157/80 H 04/24/25 07:27 Pulse Ox 93 04/24/25 07:27 O2 Del Method Room Air 04/24/25 07:27 O2 Flow Rate 2 04/22/25 03:43 BMI result Body Mass Index 21.3 Const: General: comfortable and no acute distress Resp: Effort & Inspection: normal respiratory effort Cardio: Rate: regular rate GI: Other: Dressings dry, incisions clean DENNIS drain still with serosanguineous output, high volume Palpation (GI): Soft to palpation, not firm and no guarding Objective Data Active Medications Acetaminophen (Acetaminophen 325 Mg Tablet) 650 mg PO Q6H PRN PRN Reason: Pain, Mild 1-3,fever,headache Amlodipine Besylate (Amlodipine Besylate 10 Mg Tablet) 10 mg PO DAILY [facility]; Protocol Last Admin: 04/24/25 09:09 Dose: 10 mg Documented By: LIZ Ceftriaxone Sodium (Ceftriaxone Sodium 1 Gm Vial) 1 gm IVPUSH Q24H [facility] Last Admin: 04/24/25 05:33 Dose: 1 gm Documented By: CYNDI Docusate Sodium (Docusate Sodium 100 Mg Capsule) 100 mg PO BID [facility] Last Admin: 04/24/25 09:09 Dose: Not Given Documented By: LIZ Non-Admin Reason: Patient Condition Contraindication Hydralazine HCl (Hydralazine Hcl 20 Mg/Ml Vial) 5 mg IVPUSH Q6H PRN; Protocol PRN Reason: sbp>180 Metronidazole (Flagyl) 500 mg in 100 mls @ 100 mls/hr IV Q8H [facility] Last Admin: 04/24/25 09:11 Dose: 100 mls/hr Documented By: LIZ Ketorolac Tromethamine (Ketorolac Tromethamine 15 Mg/Ml Vial) 15 mg IVPUSH Q6H [facility] On Hold: 04/21/25 16:20 Comment: Order held by Process Transfer Last Admin: 04/21/25 16:20 Dose: Not Given Documented By: GIGI Non-Admin Reason: Off Unit: Surgery Melatonin (Melatonin 3 Mg Tablet) 6 mg PO BEDTIME PRN PRN Reason: Insomnia Morphine Sulfate (Morphine Sulfate 2 Mg/Ml Cartridge) 2 mg IVPUSH Q4H PRN; Protocol PRN Reason: Pain, Severe (Pain Scale 7-10) Last Admin: 04/22/25 20:17 Dose: 2 mg Documented By: MAMIE Naloxone HCl (Naloxone Hcl 0.4 Mg/Ml Vial) 0.04 mg IVPUSH Q5M PRN PRN Reason: Excessive sedation or RR < 8 Ondansetron HCl (Ondansetron Hcl 4 Mg/2 Ml Vial) 4 mg IVPUSH Q8H PRN PRN Reason: Nausea and Vomiting Last Admin: 04/21/25 18:48 Dose: 4 mg Documented By: GIGI Oxycodone HCl (Oxycodone Hcl Immed Release 5 Mg Tablet) 5 mg PO Q4H PRN PRN Reason: Pain, Mild (Pain Scale 1-3) Last Admin: 04/23/25 01:01 Dose: 5 mg Documented By: ALVA Oxycodone HCl (Oxycodone Hcl Immed Release 5 Mg Tablet) 10 mg PO Q4H PRN PRN Reason: Pain, Moderate(Pain Scale 4-6) Last Admin: 04/23/25 19:23 Dose: 10 mg Documented By: CYNDI Pantoprazole Sodium (Pantoprazole Sodium 40 Mg/10 Ml Vial) 40 mg IVPUSH DAILY@0630 [facility] Last Admin: 04/24/25 05:33 Dose: 40 mg Documented By: CYNDI Polyethylene Glycol (Polyethylene Glycol 3350 17 Gm Powd.Pack) 17 gm PO DAILY PRN PRN Reason: Constipation Sodium Chloride (0.9 % Sodium Chloride Flush 3 Ml Syringe) [facility] Last Admin: 04/24/25 09:10 Dose: 3 ml Documented By: LIZ Trazodone HCl (Trazodone Hcl 100 Mg Tablet) 100 mg PO BEDTIME [facility] Last Admin: 04/23/25 22:03 Dose: 100 mg Documented By: CYNDI Labs 04/24/25 09:57 04/25/25 05:23 Microbiology Microbiology Results: Microbiology 04/20/25 Unknown Urine Culture - Preliminary Urine clean catch - Clean Catch Midstream Gram negative manish Enterococcus faecalis Procedures Date of Service Date of Service: 04/25/25 Progress Note: A&P Assessment and plan (1) Acute cholecystitis: Status: Acute Assessment and Plan: Status post laparoscopic cholecystectomy Looks well overall but DENNIS drain still with high output Intraop note show that she may have signs of cirrhosis on examination of the liver High output therefore likely from ascites We will check CBC and chemistry Clinically well Good GI functions GI follow up Time Spent With Patient Time: Total time managing care of this patient today ____ minutes. Quality Stroke Does the patient have a stroke diagnosis?: No VTE Prior VTE?: No VTE Risk Level:: Surgical - low VTE Device Contraindication: N/A - Device Ordered VTE Drug Contraindication: N/A - Med Ordered
[2025-04-24 10:03] LABS: MANUAL DIFF FLAG NO
[2025-04-24 10:07] LABS: Hematocrit 32.3 % (37.0-47.0); Hemoglobin 10.8 g/dl (12.0-16.0); Imm Gran Abs Auto 0.05 X10*3/uL (0.00-0.03); Imm Gran Pct Auto 0.6 % (0.0-0.4); Lymphocytes Absolute Auto 1.6 X10*3/uL (1.2-4.9); Mean Corpuscular HGB Conc 33.4 g/dl (31.0-35.0); Mean Corpuscular Hemoglobin 30.3 pg (27.0-33.0); Mean Corpuscular Volume 90.7 fL (80.0-98.0); NRBC Abs Auto 0.000 X10*3/uL (0.0-0.012); NRBC Pct Auto 0.0 /100WBC (0.0-0.2); Platelet Count 143 X10*3/uL (160-400); Red Blood Count 3.56 X10*6/uL (4.20-5.50); White Blood Count 8.4 X10*3/uL (4.8-10.8)
[2025-04-24 10:20] LABS: Alanine Aminotransferase 114 U/L (0-31); Albumin Level 3.3 g/dL (3.5-5.0); Alkaline Phosphatase 161 U/L (39-117); Anion Gap 9 (12-20); Aspartate Amino Transferase 84 U/L (5-31); Blood Urea Nitrogen 22 mg/dL (9-16); Calcium 8.7 mg/dL (8.4-10.2); Carbon Dioxide 25 mmol/L (22-29); Chloride 109 mmol/L (96-108); Creatinine Clr Calc Pharmacy 42.4; Estimated Glomerular Filt Rate > 60; Potassium 3.1 mmol/L (3.3-5.1); Sodium 140 mmol/L (135-145); Total Protein 5.6 g/dL (6.5-8.0)
--- NOTE | 2025-04-24 14:33 | PM.EVENT ---
Event Note Date of Service: 04/24/25 Event Note: Mild hypokalemia on labs, repleted orally. DENNIS drain placed to gravity bag. Repeat lytes in AM. If drainage decreased and lytes remain stable, ok for dc to home with outpatient GI follow up. Patient comfortable with plan. Time Spent With Patient Time: Total time managing care of this patient today ____ minutes.
[2025-04-24] MEDS: Potassium Chloride Packet 20 MEQ PACKET 40 MEQ PO (14:54)
[2025-04-24] MEDS: oxyCODONE HCl Immed Release 5 MG TABLET 10 MG PO (19:30)
--- NOTE | 2025-04-24 22:07 | PC.NURSE ---
2019 BP-191/89 P-71 medicated with hydralazine 5mg IV after 1 hour BP-177/81 P-73.
[2025-04-25 03:18] VITALS: BP 151/72; PULSE 68; RESP 18; TEMP 36.4; O2SAT 96
[2025-04-25 06:27] LABS: Anion Gap 8 (12-20); Blood Urea Nitrogen 24 mg/dL (9-16); Calcium 8.4 mg/dL (8.4-10.2); Carbon Dioxide 23 mmol/L (22-29); Chloride 111 mmol/L (96-108); Creatinine Clr Calc Pharmacy 51.1; Estimated Glomerular Filt Rate > 60; Potassium 3.3 mmol/L (3.3-5.1); Sodium 139 mmol/L (135-145)
[2025-04-25 07:15] VITALS: BP 126/62; PULSE 65; RESP 18; TEMP 36.3; O2SAT 94
--- NOTE | 2025-04-25 08:17 | P.PNGS_ITS ---
Subjective Subjective Date of Service: 04/25/25 Interval history: Says she feels okay Tolerating diet Drain still with high output, appears to be ascitic, nonbilious Physical Exam 2 Vital Signs: Vital Signs: Last Vital Signs Temp 97.4 F 04/25/25 07:15 Pulse 65 04/25/25 07:15 Resp 18 04/25/25 07:15 BP 126/62 04/25/25 07:15 Pulse Ox 94 04/25/25 07:15 O2 Del Method Room Air 04/25/25 07:15 O2 Flow Rate 2 04/22/25 03:43 BMI result Body Mass Index 21.3 Const: General: comfortable and no acute distress Resp: Effort & Inspection: normal respiratory effort Cardio: Rate: regular rate GI: Other: Drain with bile bag to gravity, nonbilious output Palpation (GI): Soft to palpation, not firm, nontender and no guarding Objective Data Active Medications Acetaminophen (Acetaminophen 325 Mg Tablet) 650 mg PO Q6H PRN PRN Reason: Pain, Mild 1-3,fever,headache Amlodipine Besylate (Amlodipine Besylate 10 Mg Tablet) 10 mg PO DAILY [facility]; Protocol Last Admin: 04/24/25 09:09 Dose: 10 mg Documented By: LIZ Ceftriaxone Sodium (Ceftriaxone Sodium 1 Gm Vial) 1 gm IVPUSH Q24H [facility] Last Admin: 04/25/25 05:36 Dose: 1 gm Documented By: CYNDI Docusate Sodium (Docusate Sodium 100 Mg Capsule) 100 mg PO BID [facility] Last Admin: 04/24/25 19:50 Dose: Not Given Documented By: CYNDI Non-Admin Reason: Patient Refused Hydralazine HCl (Hydralazine Hcl 20 Mg/Ml Vial) 5 mg IVPUSH Q6H PRN; Protocol PRN Reason: sbp>180 Last Admin: 04/24/25 20:18 Dose: 5 mg Documented By: KENTON Ketorolac Tromethamine (Ketorolac Tromethamine 15 Mg/Ml Vial) 15 mg IVPUSH Q6H [facility] On Hold: 04/21/25 16:20 Comment: Order held by Process Transfer Last Admin: 04/21/25 16:20 Dose: Not Given Documented By: GIGI Non-Admin Reason: Off Unit: Surgery Melatonin (Melatonin 3 Mg Tablet) 6 mg PO BEDTIME PRN PRN Reason: Insomnia Metronidazole (Metronidazole 500 Mg Tablet) 500 mg PO Q8H [facility] Last Admin: 04/25/25 02:49 Dose: 500 mg Documented By: CYNDI Morphine Sulfate (Morphine Sulfate 2 Mg/Ml Cartridge) 2 mg IVPUSH Q4H PRN; Protocol PRN Reason: Pain, Severe (Pain Scale 7-10) Last Admin: 04/24/25 20:57 Dose: 2 mg Documented By: KENTON Naloxone HCl (Naloxone Hcl 0.4 Mg/Ml Vial) 0.04 mg IVPUSH Q5M PRN PRN Reason: Excessive sedation or RR < 8 Ondansetron HCl (Ondansetron Hcl 4 Mg/2 Ml Vial) 4 mg IVPUSH Q8H PRN PRN Reason: Nausea and Vomiting Last Admin: 04/21/25 18:48 Dose: 4 mg Documented By: GIGI Oxycodone HCl (Oxycodone Hcl Immed Release 5 Mg Tablet) 5 mg PO Q4H PRN PRN Reason: Pain, Mild (Pain Scale 1-3) Last Admin: 04/23/25 01:01 Dose: 5 mg Documented By: ALVA Oxycodone HCl (Oxycodone Hcl Immed Release 5 Mg Tablet) 10 mg PO Q4H PRN PRN Reason: Pain, Moderate(Pain Scale 4-6) Last Admin: 04/24/25 19:30 Dose: 10 mg Documented By: CYNDI Pantoprazole Sodium (Pantoprazole Sodium 40 Mg/10 Ml Vial) 40 mg IVPUSH DAILY@0630 [facility] Last Admin: 04/25/25 05:36 Dose: 40 mg Documented By: CYNDI Polyethylene Glycol (Polyethylene Glycol 3350 17 Gm Powd.Pack) 17 gm PO DAILY PRN PRN Reason: Constipation Sodium Chloride (0.9 % Sodium Chloride Flush 3 Ml Syringe) 3 ml IVFLUSH QSHIFT [facility] Last Admin: 04/24/25 20:58 Dose: 3 ml Documented By: KENTON Trazodone HCl (Trazodone Hcl 100 Mg Tablet) 100 mg PO BEDTIME [facility] Last Admin: 04/24/25 20:58 Dose: 100 mg Documented By: KENTON Labs 04/24/25 09:57 04/25/25 05:23 Labs: Laboratory Results - last 24 hr 04/24/25 04/25/25 04/25/25 09:57 05:23 05:25 MCV 90.7 MCH 30.3 MCHC 33.4 RDW 13.9 Plt Count 143 L MPV 11.1 Immature Gran % (Auto) 0.6 H Neut % (Auto) 71.6 Lymph % (Auto) 19.5 L Benson % (Auto) 5.5 Eos % (Auto) 2.3 Baso % (Auto) 0.5 Lymph # (Auto) 1.6 Benson # (Auto) 0.5 Eos # (Auto) 0.2 Baso # (Auto) 0.0 Abs Immat Gran (auto) 0.05 H Absolute Neuts (auto) 6.0 Absolute Nucleated RBC 0.000 Nucleated RBC % (auto) 0.0 Hold Purple Top SEE NOTE Anion Gap 9 L 8 L Estim Creat Clear Calc 42.4 51.1 Estimated GFR > 60 > 60 Random Glucose 123 H Fasting Glucose 113 H Calcium 8.7 8.4 Total Bilirubin 0.6 AST 84 H ALT 114 H Alkaline Phosphatase 161 H Total Protein 5.6 L Albumin 3.3 L Microbiology Microbiology Results: Microbiology 04/20/25 Unknown Urine Culture - Final Urine clean catch - Clean Catch Midstream Raoultella planticola Enterococcus faecalis Procedures Date of Service Date of Service: 04/25/25 Progress Note: A&P Assessment and plan (1) Acute cholecystitis: Status: Acute Assessment and Plan: Status post lap leticia still with high output from DENNIS drain Likely ascites? We will check CAT scan She looks well overall Replace potassium She is tolerating diet Abdomen is soft and benign Time Spent With Patient Time: Total time managing care of this patient today ____ minutes. Quality Stroke Does the patient have a stroke diagnosis?: No VTE Prior VTE?: No VTE Risk Level:: Surgical - low VTE Device Contraindication: N/A - Device Ordered VTE Drug Contraindication: N/A - Med Ordered
[2025-04-25] MEDS: 0.9 % Sodium Chloride Flush 3 ML SYRINGE IVFLUSH (09:02)
[2025-04-25] MEDS: iohexoL 350 MG/ML 100 ML INFUS..BTL IV (09:55)
--- NOTE | 2025-04-25 10:27 | MHC.CM.PN ---
Addendum entered by Zoila Gonzalez RN 04/25/25 12:58: Per MD, patient cleared for dc home w/ new [facility] for SN/drain care. RN will provide education to patient prior to dc. transport. Original Note: Patient not medically cleared for dc. DP: Home self care v home w/ services. CM will continue to follow.
--- NOTE | 2025-04-25 12:46 | W.MHC.F2F ---
Service Date Service Date: 04/25/25 Encounter Date of encounter: 04/25/25 Reasons for Services Signs and symptoms assessed: PO intake, drain output, incision appearance, labs Reason for long term: wound care and postoperative assessment and/or care Homebound: Leaving the home is medically contraindicated at this time without the asist of a device and/or another person due th the listed conditions above and below. Reason homebound: weakness related to hospital stay and unable to drive Homebound supporting statement: Mrs. shea is s/p lap leticia. She has a DENNIS drain in place with high output. She will VNA for drain care. Certification: Based on the above findings, I certify that this patient is confined to the home and needs intermittent long term care, physical therapy and/or speech therapy, or continues to need occupational therapy. The patient is under my care, and I have initiated the establishment of the plan of care. The patient will be followed by a physician who will periodically review the plan of care. Time Spent With Patient Time: Total time managing care of this patient today ____ minutes.
--- NOTE | 2025-04-25 13:00 | PM.EVENT ---
Event Note Date of Service: 04/25/25 Event Note: Seen on early afternoon rounds She is tolerating diet Feels well overall Cat scan reviewed - free fluid, no other acute changes, postop changes in the gallbladder fossa seen Abdomen remained soft and benign She looks well overall Stable vital signs She wants to be discharged She was given instructions on care of the DENNIS drain I will see her in the office next week She is to have a follow up with Gastroenterology as well Time Spent With Patient Time: Total time managing care of this patient today ____ minutes.
--- NOTE | 2025-04-25 14:07 | P.DS_ITS ---
DS: Providers Provider Date of Service: 04/25/25 Date of admission: 04/21/25 01:59 Date of discharge: 04/25/25 Primary care physician: Tracee Cleaning MD Attending physician on admission: Paris Daniels Consults: 04/21/25 15:59 Consult to Hospitalist Routine Comment: Consulting Provider: [facility] Hospitalists Reason For Exam: med management - cirrhosis liver intraop Attending physician on discharge: Fabrizio Edward DS: Diagnosis Discharge Diagnosis (1) Acute cholecystitis: Status: Acute DS: Summary Hospital Course Hospital Course: HPI AT ADMISSION: Margie Giang is a 74 year old female who comes into the hospital complaining abdominal pain ruq radiation to back some nausea no vomiting. on workup thickened gallbaldd with elevated lfts and consistent with cholecystitis. HOSPITAL COURSE: The patient was admitted to the surgical service for further treatment of the acute cholecystitis. She elected to proceed with laparoscopic cholecystectomy, possible open. She was added onto the OR schedule for that day. On 04/21/25, a laparoscopic cholecystectomy was performed by Dr. Daniels without complication. The patient had a nodular stiff liver with the appearance of a cirrhotic liver. The patient tolerated the procedure well. She had an uncomplicated recovery course but prolonged as her DENNIS drain output became very high, serosanguineous. This was thought to be ascites given her liver cirrhosis. Her LFTs were raised preoperatively which was thought secondary to acute cholecystitis. These continuinally improved post operatively but were noted to be mildly elevated in her past. Her CBC and electrolytes remained stable with the high drain output. Her drain was changed to a gravity bag without si gnificant change in the drainage. CT scan abd/pelvis was therefore obtained which was essentially unrevealing for acute pathology. The decision was made to send her home with the drain in place to further monitor the output as she was clinically appearing well. On POD #4, the day of discharge, she overall felt well and was tolerating a solid diet without nausea or vomiting, had good pain control and was ambulating without difficulty. She was hemodynamically stable. Her abdomen was benign with appropriate post op tenderness and clean incisions. Her drain had serosanguineous drainage. She felt ready for discharge. She was discharged to home on 04/25/25 in stable condition with her drain in place and with VNA services. She is to follow up in the office early next week. Outpatient referral to GI was made for her liver dysfunction. Of note she complained of chest pain in recovery and therefore medical consult was obtained. EKG nonischemic but with prolonged QTC and her meds were adjusted. CXR negative. This resolved. She was also found to have a UTI with positive culture for Raoultella planticola and Enterococcus faecalis sensitive to Macrobid. She was discharged to home on a short course of Macrobid 100mg PO BID. Status at Discharge Functional status at discharge: independent ambulation Overall status at discharge: patient is progressing back to baseline Time Attestation Discharge Coordination Time (in mins): 40 Quality: Safe Use of Opioids Does Pt have an Active Cancer Diagnosis on the Problem List?: No Quality: Stroke Does the patient have a stroke diagnosis?: No Physical Exam Vital Signs: Vital Signs: Last Vital Signs Temp 97.4 F 04/25/25 07:15 Pulse 65 04/25/25 07:15 Resp 18 04/25/25 07:15 BP 126/62 04/25/25 07:15 Pulse Ox 94 04/25/25 07:15 O2 Del Method Room Air 04/25/25 07:15 O2 Flow Rate 2 04/22/25 03:43 BMI result Body Mass Index 21.3 Const: General: comfortable, no acute distress and alert Orientation /consciousness: patient oriented x3 Resp: Effort & Inspection: normal respiratory effort GI: Other: DENNIS drain serosanguineous Inspection: No distended and Yes incision (clean) Palpation (GI): Soft to palpation, Tenderness to palpation present (GI) (mild incisional) and no guarding Skin: General skin exam: no rashes or lesions noted and no jaundice Neuro: General: patient oriented x3 and moves all extremities DS: Data Data Completed and Pending Completed studies during hospitalization [Text1]: Pending at discharge 04/21/25 14:35 Surgical [PTH] Routine Labs on day of discharge: Laboratory Results - last 24 hr 04/25/25 04/25/25 05:23 05:25 Hold Purple Top SEE NOTE Sodium 139 Potassium 3.3 Chloride 111 H Carbon Dioxide 23 Anion Gap 8 L BUN 24 H Creatinine 0.74 Estim Creat Clear Calc 51.1 Estimated GFR > 60 Fasting Glucose 113 H Calcium 8.4 Discharge Plan Discharge Anticipated Discharge Date/Time: 04/25/25 12:45 Patient Disposition: Home Health Service Discharge Diagnosis: acute cholecystitis, s/p laparoscopic cholecystectomy, liver nodularity, UTI Referrals: [facility] [Outside] - 3-5 Days Referral Note: [facility] will call you to schedule home nursing services Luz Farias MD [Physician, Gastroenterology] - 2 Weeks Referral Note: liver dysfunction Fabrizio Edward MD [Physician, General Surgery] - 1 Week Tracee Diaz MD [Primary Care Provider, Internal Medicine] - 1 Week Discharge Medications: New docusate sodium [Colace] 100 mg capsule 100 mg PO BID PRN (Reason: constipation) Qty: 30 0RF oxycodone 5 mg tablet 5 mg PO Q4H PRN (Reason: pain (scale score 7-10)) Qty: 24 0RF Rx Instructions: Partial Fill upon patient request. nitrofurantoin monohyd/m-cryst [Macrobid] 100 mg capsule 100 mg PO BID Qty: 4 0RF Rx Instructions: must administer with a meal/food Continued multivitamin Tablet 1 tab PO DAILY aspirin 81 mg Tablet,Delayed Release (Dr/Ec) 81 mg PO DAILY mirabegron 50 mg tablet extended release 24 hr 50 mg PO DAILY amlodipine 5 mg tablet 10 mg PO DAILY pantoprazole 20 mg tablet,delayed release (DR/EC) 20 mg PO DAILY@0630 atorvastatin 40 mg tablet 40 mg PO DAILY trazodone 100 mg tablet 100 mg PO BEDTIME Discharge Orders: Discharge Order (Routine); Ordered 04/25/25 Ordered By: Kenia Carmona Diet: Low fat, low cholesterol Activity on Discharge: No heavy lifting Stand Alone Forms: Patient Portal Discharge page Print Language: Kazakh Activity Restrictions/Additional Instructions: If the incision area is tender, you may apply an ice pack for short intervals (No more than 20 minutes on, followed by at least 20 minutes off). Do not apply heat. Do not use creams, lotions, or topical antibiotics. These can cause infection or allergic reaction. Ok to shower. You have steri strips (small white strips) covering your incision- these will fall off ~1 week. DENNIS drain care- empty drain BID and as needed. Record output. Bring record to follow up appointment. Follow up in office with Dr. Edward in 2 weeks. ([phone]) Follow up with your PCP. No heavy lifting (>10-20lbs) or strenuous activity! Finish your antibiotics as prescribed. Call Your Doctor If: -Your temperature exceeds 101.5? F -You experience excessive pain or swelling -You have an unexpected reaction to medication -You have excessive bleeding -You experience continued vomiting/nausea -Your incision begins to separate -Your incision shows signs of infection such as increased redness, swelling, excessive pain, drainage (light blood or clear fluid is normal) or heat Care Plan Goals: Return to baseline health and resume normal activities following recovery period. Health Concerns: acute cholecystitis liver nodularity , elevated LFTs prolonged QT Plan of Treatment: s/p laparoscopic cholecystecomy F/u in office with General Surgery in 1 week F/u with your PCP F/u with gastroenterology Assessment: Improved Discharge Date/Time: 04/25/25 13:35
== END 2025-04-25 13:35 | disposition home health service (06) | DRG 418 ==
LOC: HO.ED 04-21 01:27 → HO.EDOVER 04-21 02:07 → HO.S3 04-21 02:42
PROVIDERS: Internal Medicine; Physician Assistant Medical; Physician Assistant Surgical; Registered Nurse Emergency; Admitting Provider Surgery; Emergency Provider Emergency Medicine Emergency Medical Services; PCP Internal Medicine; Visit Provider Surgery
PROC: 0FT44ZZ Resection of Gallbladder, Percutaneous Endoscopic Approach (ICD-10-PCS; CPT 47562; principal; 2025-04-21 12:15)
DX: K81.0 Acute cholecystitis (principal); N39.0 Urinary tract infection, site not specified; I25.10 Atherosclerotic heart disease of native coronary artery without angina pectoris; K74.60 Unspecified cirrhosis of liver; E87.6 Hypokalemia; B95.2 Enterococcus as the cause of diseases classified elsewhere; B96.89 Other specified bacterial agents as the cause of diseases classified elsewhere; K59.00 Constipation, unspecified; I10 Essential (primary) hypertension; R94.31 Abnormal electrocardiogram [ECG] [EKG]; Z79.82 Long term (current) use of aspirin; Z79.899 Other long term (current) drug therapy
CPT/HCPCS: 36415; 71045; 74177; 76705; 80048; 80053; 80307; 81001; 83735; 84484; 85014; 85018; 85025; 85610; 85730; 86704; 86706; 86803; 86850; 86900; 86901; 87086; 87088; 87186; 87340; 88304; 93005; 99285; A4649; J0360; J0696; J0744; J1100; J1836; J1885; J2003; J2270; J2405; J2470; J2704; J3475; Q9967

== ENCOUNTER → 2025-04-20 21:49 | Outpatient (BNV) | payer MEDICARE, SELFPAY | PROVIDERS: Emergency Provider Emergency Medicine Emergency Medical Services; PCP Internal Medicine; Visit Provider Radiology Neuroradiology | DX: R10.9 Unspecified abdominal pain (principal) | CPT/HCPCS: 74177 ==

== ENCOUNTER → 2025-04-21 00:46 | Outpatient (BNV) | payer MEDICARE, SELFPAY | PROVIDERS: Admitting Provider Surgery; Emergency Provider Emergency Medicine Emergency Medical Services; PCP Internal Medicine; Visit Provider Radiology Neuroradiology | DX: K80.10 Calculus of gallbladder with chronic cholecystitis without obstruction (principal); J98.11 Atelectasis | CPT/HCPCS: 71045; 76705 ==

== ENCOUNTER 2025-04-21 01:59 | Outpatient (BNV) | payer MEDICARE, SELFPAY | END 2025-04-24 08:00 | PROVIDERS: Admitting Provider Surgery; Emergency Provider Emergency Medicine Emergency Medical Services; PCP Internal Medicine; Visit Provider Internal Medicine Cardiovascular Disease | DX: R94.31 Abnormal electrocardiogram [ECG] [EKG] (principal); Z13.6 Encounter for screening for cardiovascular disorders | CPT/HCPCS: 93010 ==

== ENCOUNTER 2025-04-21 01:59 | Outpatient (BNV) | payer MEDICARE, SELFPAY | END 2025-04-21 16:44 | PROVIDERS: Admitting Provider Surgery; Emergency Provider Emergency Medicine Emergency Medical Services; PCP Internal Medicine; Visit Provider Internal Medicine | DX: R94.31 Abnormal electrocardiogram [ECG] [EKG] (principal); R07.89 Other chest pain | CPT/HCPCS: 93010 ==

== ENCOUNTER 2025-04-21 01:59 | Outpatient (BNV) | payer MEDICARE, SELFPAY | END 2025-04-25 09:32 | PROVIDERS: Admitting Provider Surgery; Emergency Provider Emergency Medicine Emergency Medical Services; PCP Internal Medicine; Visit Provider Radiology Diagnostic Radiology | DX: R16.0 Hepatomegaly, not elsewhere classified (principal); K83.8 Other specified diseases of biliary tract | CPT/HCPCS: 74177 ==

== ENCOUNTER → 2025-04-21 01:59 | Outpatient (BNV) | payer MEDICARE, SELFPAY | PROVIDERS: Admitting Provider Surgery; Emergency Provider Emergency Medicine Emergency Medical Services; PCP Internal Medicine; Visit Provider Physician Assistant Medical | DX: K81.0 Acute cholecystitis (principal) | CPT/HCPCS: 99223; 99233 ==

== ENCOUNTER → 2025-04-21 01:59 | Outpatient (BNV) | payer MEDICARE, SELFPAY | PROVIDERS: Admitting Provider Surgery; Emergency Provider Emergency Medicine Emergency Medical Services; PCP Internal Medicine; Visit Provider Surgery | DX: K81.0 Acute cholecystitis (principal); R74.8 Abnormal levels of other serum enzymes | CPT/HCPCS: 47562; 99024; 99223; 99499 ==

== ENCOUNTER 2025-05-02 14:16 | Outpatient (AMB) | payer MEDICARE, SELFPAY ==
--- NOTE | 2025-05-02 14:38 | MHC.OFFVIS ---
Vital Signs 05/02/25 14:40 Height 5 ft 2 in BMI Reason not done Patient refused/unable BP not taken reason Patient Refused Intake Visit Reasons: possible drain removal Intake Note: This patient presents for a possible DENNIS drain removal. Pt c/o; will like to discuss why do I need the drain if I was told it will only be in for 2 days and it has been 2 weeks , 20 mL/hr. Insurance Coordinator Required: No Accompanied by: Other Relationship Allergies amoxicillin (AMOXICILLIN) Allergy (Unknown, Verified 05/02/25 14:47) ANAPHYLAXIS clindamycin (CLINDAMYCIN) Allergy (Unknown, Verified 05/02/25 14:47) NAUSEA & VOMITING codeine (CODEINE) Allergy (Unknown, Verified 05/02/25 14:47) NAUSEA & VOMITING prochlorperazine (From COMPAZINE) Allergy (Unknown, Verified 05/02/25 14:47) DRY MOUTH HPI HPI possible drain removal: Details: [age] year old female who had undergone laparoscopic cholecystectomy with Dr. Daniels last 04/21/2025. She had a DENNIS drain placed at that time. Her DENNIS drain had significant output which resembled ascites so this was not removed on her discharge on postop day 4. She otherwise seems to be doing well. She has good oral intake. She denies significant pain. [facility] Medical History Myocardial infarction CAD (coronary artery disease) Hypercholesteremia Hypertension Surgical History (Updated 05/02/25 @ 15:04 by Fabrizio Edward MD) Status post laparoscopic cholecystectomy History of PTCA Social History Household Members: [facility] Do you presently have visiting nurse or other home services: No Patient Tobacco Use Status: Never used Tobacco service: No Review of Systems Const Denies chills and Denies fatigue Card Denies chest pain at rest Resp Denies cough GI Denies vomiting Endo Denies fatigue Physical Exam Const General: comfortable and no acute distress Eyes Other: Anicteric sclerae GI Other: All incisions well healed, DENNIS drain with clear ascitic fluid, nonbilious Palpation (GI): Soft to palpation, not firm, nontender and no guarding Assessment & Plan Assessment & Plan (1) Status post laparoscopic cholecystectomy: Code(s): Z90.49 - Acquired absence of other specified parts of digestive tract Category: Surgical Plan: Her incisions are all healing well. Her DENNIS drain still has significant output but this has ascitic fluid and is clear and nonbilious. I therefore removed this after discussing this with her. This was removed intact without difficulty I applied dressings. I told her that I can see her again next week to re-evaluate her. At some point, she should be seen by her primary care physician because of this ascites. Dr. Daniels did state that her liver looked to have some degree of cirrhosis intraoperatively. Coding Level of Care Code Global (67552) Diagnoses Status post laparoscopic cholecystectomy Z90.49
--- OUTSIDE RECORDS SUMMARY | 2025-05-02 18:01 | XMS_ITS | Encounter Summary ---
Author Organization [facility] Address [address] [place] [address] Care Team Providers Care Counterintelligence Analyst Name Role Phone Tracee Chavez MD Primary Care Prov ider Encounter Details Date Type Department Care Team ([facility] st Contact Info) Description 10/31/2024 Lab Requisition [facility] - Main Lab [address] [facility] [place] [phone] Ruthy Nguyen NP [address] [facility] [address] [place] [address] Urinary tract infection, site not specified Social [...] care for your loved ones. For example, director maternal child or elderly care for an older adult? [...] 11:15 AM EST Office Visit Adult Medicine [address] [phone] Tracee Chavez MD [address] [place] [address] 08/10/2025 9:20 AM EST Office Visit [facility] [address] [phone] Federico Jackson MD [address] [address] documented as of this encounter Procedures Procedure Name Priority Date/Time Associated Diagnosis Comments BACTERIAL IDENTIFICATION AND SUSCEPTIBILITY, AEROBIC Routine 10/30/2024 12:00 AM EDT Urinary tract infection, site not specified documented in this encounter Results * (ABNORMAL) Bacterial identification and susceptibility, aerobic (10/30/2024 12:00 AM EDT) Culture, Bacterial ID and Sensitivity Escherichia coli(A) GIDEON 11/01/2024 8:46 AM EDT [facility] Other Urine specimen from urethra [...] GIDEON <=0.12 ug/ml: Susceptible Escherichia coli Meropenem GDIEON <=0.25 ug/ml: Susceptible Escherichia coli Amikacin GIDEON 2 ug/ml: Susceptible Escherichia coli Gentamicin GIDEON <=1 ug/ml: Susceptible Escherichia coli Ciprofloxacin GIDEON <=0.06 ug/ml: Susceptible Escherichia coli Levofloxacin GIDEON <=0.12 ug/ml: Susceptible Escherichia coli Nitrofurantoin GIDEON <=16 ug/ml: Susceptible Escherichia coli Trimethoprim/Sulfamethoxazole GIDEON <=20 ug/ml: Susceptible us Ruthy Nguyen GEM TECHNICIAN LAB MICROBIOLOGY - GENERA L ORDERABLES Final Result [facility] LAB [address] [place] [address], documented in this encounter Visit Diagnoses Diagnosis Urinary tract infection, site not specified documented in this encounter Additional Health Concerns Assessment Noted Time PHQ-9 Depression Total Score: 2 10/13/19 25 11:12 AM EDT documented as of this encounter Care Teams Counterintelligence Analyst Relationship Specialty Start Date End Date Tracee Chavez MD [address] [place] [phone] PCP - General Internal Medicine 03/11/22 documented as of this encounter
--- OUTSIDE RECORDS SUMMARY | 2025-05-02 18:01 | XMS_ITS | Encounter Summary ---
Author Organization Address [address] [place] [address] Care Team Providers Care Process Validation Engineer Name Role Phone Tracee Chavez MD Primary Care Prov ider Encounter Details Date Type Department Care Team (Late st Contact Info) Description 01/05/2025 Lab Requisition [facility] - Main Lab 299 [facility] [place] [phone] Ariela Saunders MD [address] [facility] [address] [place] [address] Other abnormal findings in urine Social History [...] care for your loved ones. For example, assistant child care teacher or elderly care for an older [...] 11:15 AM EST Office Visit Adult Medicine [address] [phone] Tracee Chavez MD [address] [place] [address] 08/10/2025 9:20 AM EST Office Visit [facility] [address] [phone] Federico Jackson MD [address] [address] documented as of this encounter Procedures Procedure Name Priority Date/Time Associated Diagnosis Comments CULTURE URINE Routine 01/05/2025 10:20 AM EDT Other abnormal findings in urine documented in this encounter Results * (ABNORMAL) Culture urine (01/05/2025 10:20 AM EDT) Culture, Urine >100,000 CFU/mL Escherichia coli(A) GIDEON 01/07/2025 8:00 AM EDT [facility] Urine Urine specimen from urethra / Unknown 01/05/2025 10:20 AM EDT 01/05/2025 12:28 PM EDT Narrative Organism Antibiotic Method Susceptibility Escherichia coli Amoxicillin/Clavulanate GIDEON 4 ug/ml: Susceptible Escherichia coli Ampicillin/Sulbactam GDIEON 4 ug/ml: Susceptible Escherichia coli Piperacillin/Tazobactam GIDEON [...] Escherichia coli Trimethoprim/Sulfamethoxazole GIDEON <=20 ug/ml: Susceptible Ariela Saunders MD LAB MICROBIOLOGY - G ENERAL ORDERABLES Final Result [facility] LAB [address] [place] [address], documented in this encounter Visit Diagnoses Diagnosis Other abnormal findings in urine documented in this encounter Additional Health Concerns Assessment Noted Time PHQ-9 Depression Total Score: 2 10/13/19 25 11:12 AM EDT documented as of this encounter Care Teams Process Validation Engineer Relationship Specialty Start Date End Date Tracee Chavez MD [address] [place] [phone] PCP - General Internal Medicine 03/11/22 documented as of this encounter
--- OUTSIDE RECORDS SUMMARY | 2025-05-02 18:01 | XMS_ITS | Clinical Summary ---
Author Organization [facility] Address [address] [place] [phone] Phone Care Team Providers Care Coding Analyst Name Role Phone Tracee Chavez MD [...] 3 10/13/19 25 026 Active EPINEPHrine (EpiPen 2-Dvaid) 0.3 mg/0.3 mL injection Inject 0.3 mL [...] DAILY 90 tablet 1 10/12/19 25 025 Discontinued( erapy completed) diclofenac (VOLTAREN) 1 % topical gel Apply 4 g topically 2 (two) times a day. 100 g 2 11/22/19 25 025 Discontinued( erapy completed) lidocaine HCL 4 % adhesive patch,medicate d Apply 1 patch topically 1 (one) time each day. For 12 hours and remove for 12 hours 20 patch 11/22/19 025 Discontinued( erapy completed) folic acid (FOLVITE) 1 mg tablet Take 1 tablet (1 mg total) by mouth. 11/06/19 025 Discontinued( erapy completed) amLODIPine (NORVASC) 5 mg tablet Take 1 tablet (5 mg total) by mouth 1 (one) time each day. 90 tablet 02/14/20 025 Discontinued Active Problems Problem Noted Date Diagnosed Date Common bile duct dilation 11/30/2024 Fibromyalgia 06/28/2024 Overview (06/28/2024): Dr. Horta - [facility] pain clinic Primary insomnia [...] sparing. Small amount of gallbladder sludge. POS [id number] Mild episode of recurrent ma nedra depressive disorder ([facility] V24) 05/11/2019 Assessment & Plan (04/17/2025 11:10 [...] kidney disease) stage 3, GFR 30-59 ml/min ([facility] V24, [facility] V28) 08/10/2014 Assessment & Plan (10/12/2024 12:00 [...] no high grade arrythmia Coronary atherosclerosis of craig coronary vess el 02/08/2006 Overview (06/28/2024): s/p stent 1999, RCA ECHO 2005: IMPRESSION: Normal left ventricular systolic function without specific wall motion abnormalities. Trace mitral regurgitation. Assessment & Plan (10/12/2024 12:00 PM EDT): Orders: Comprehensive metabolic panel; Future Lipid panel with reflex to direct LDL; Future Encounters Date Type Department Care Team Description 05/02/2025 Telephone Adult Medicine [facility] - [address] [phone] Tracee Gordon MD 04/17/2025 11:00 AM EDT Office Visit Adult Medicine [address] [phone] Tracee Gordon MD Primary hypertension (Primary Dx); Mixed hyperlipidemia; Mild episode of recurrent major depressive disorder (CMS/HCC V24) 03/01/2025 1:55 PM EDT - 03/01/2025 11:59 PM EDT Hospital Encounter Radiology Department - [address] [address] Encounter for screening mammogram for breast cancer [...] W/O BSO BREAST SURGERY 2013 Bilateral PROCEDURE: HI UNLISTED PROCEDURE BREAST; COMMENT: breast reduction BREAST BIOPSY Left PROCEDURE: BX BREAST; PERC NEEDLE CORE W/IMAG GUID; COMMENT: lt side, many yrs ago COLONOSCOPY 2013 PROCEDURE: HISTORICAL COLONOSCOPY; COMMENT: normal UPPER GASTROINTESTINAL ENDOSCOPY 2012 PROCEDURE: HI UPPER GI ENDOSCOPY PERFORMED; COMMENT: no esophagitis on PPI treatment; 3 cm HH. COLONOSCOPY 2001 PROCEDURE: HISTORICAL COLONOSCOPY; COMMENT: negative UPPER GASTROINTESTINAL ENDOSCOPY 01/31/2018 PROCEDURE: HI UPPER GI ENDOSCOPY PERFORMED; COMMENT: 3 cm HH; otherwise normal on PPI rx. BREAST BIOPSY Left PROCEDURE: BX BREAST; PERC NEEDLE CORE W/IMAG GUID; COMMENT: DENSE HYPOCELLULAR STROMAL FIBROSIS WITH FOCAL HEMOSIDERIN-LADEN BREAST LUMPECTOMY HYSTERECTOMY Medical History Medical History Date Comments Coronary atherosclerosis of unspecified type of vessel, craig or graft 02/08/2006 DX:Coronary atherosclerosis of unspecified type of vessel, craig or graft; COMMENT: s/p stent 2000, RCA Other specified cardiac dysrhythmias(427.89) 02/08/2006 DX:Other specified cardiac dysrhythmias(427.89) Other specified cardiac dysrhythmias(427.89) 02/08/2006 DX:Other specified cardiac dysrhythmias(427.89); COMMENT: Holter 03/04/06, Holter -) lowest sinus glenn 39. no high grade arrythmia GERD (gastroesophageal reflu x disease) 05/19/2007 DX:GERD (gastroesophageal re flux disease) Back pain DX:Back pain; CO MMENT: followed by pain management, case Fibromyalgia DX:Fibromyalgia; COMMENT: Dr. Horta - [facility] pain clinic Myofascial pain syndrome DX:Myof ascial pain syndrome; COMMENT: Dr. Horta - [facility] pain clinic Vitamin D deficiency 01/25/2012 DX:Vitamin D deficiency Panic disorder 10/23/2014 DX:Panic disorde r Osteoporosis 01/13/2012 DX:Osteoporosis Hypertension 04/13/2006 DX:Hypertension Hyperlipidemia 08/24/2013 DX:Hyperlipidemi a Depression, major, recurrent , in remission ([facility]/HCC V24) 07/05/2014 DX:Depression, major, recurr ent, in remission (HCC) CKD (chronic kidney disease) stage 3, GFR 30-59 ml/min (CMS/HCC V24, CMS/HCC V28) 08/10/2014 DX:CKD (chronic kidney disea se) stage 3, GFR 30-59 ml/min ([facility]) History of other specified c onditions presenting [...] care for your loved ones. For example, vocational childcare teacher or elderly care for an older [...] 11:15 AM EST Office Visit Adult Medicine [address] [phone] Tracee Chavez MD [address] [place] [address] 08/10/2025 9:20 AM EST Office Visit [facility] [address] [phone] Federico Jackson MD [address] [address] Health Maintenance Due Date Last Done Comments [...] Procedure Name Priority Date/Time Associated Diagnosis Comments US ABDOMEN LIMITED Routine 04/21/2025 9: [address] REPORT Routine 04/20/2025 9: 07 AM EDT MG MAMMO DIGITAL SCREENING W BRIJESH BILAT Routine 03/01/2025 2:38 PM EDT Encounter for screening mammogram for breast cancer COMPREHENSIVE METABOLIC PANEL Routine 11/30/2024 10:26 AM EDT Tremor Stage 3a chronic kidney disease (CMS/HCC V24, CMS/HCC V28) Atherosclerosis 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 (CMS/HCC V24) LIPID PANEL WITH REFLEX TO DIRECT LDL Routine 11/30/2024 10:26 AM EDT Tremor Stage 3a chronic kidney disease (CMS/HCC V24, CMS/HCC V28) Atherosclerosis 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 (CMS/HCC V24) EXTERNAL COLOGUARD (FIT-DNA) REPORT 06/21/2024 DXA BONE DENSITY STUDY 1+ SITS AXIAL SKEL Routine 02/22/2023 2:57 PM EDT Asymptomatic menopausal state HEPATITIS C SCREENING Routine 04/04/2013 from Last 3 Months or Most Recently Relevant to Health Maintenance Results * US Abdomen Limited (04/21/2025 9:00 AM EDT) Anatomical Region Laterality Modality Body Ultrasound us Historical Provider MD ADORNO US PROCEDURES Final R esult * External CT Report (04/20/2025 9:07 AM EDT) Anatomical Region Laterality Modality Computed Tomogra phy us Historical Provider MD ADORNO CT PROCEDURES Final R esult * MG Mammo Digital Screening w Brijesh bilat (03/01/2025 2:38 PM EDT) Anatomical Region Laterality Modality Breast Bilateral Mammography 03/05/2025 10:0 5 AM EDT Impressions 03/05/2025 10:08 AM EDT No mammographic evidence of malignancy. BREAST DENSITY: B - There are scattered areas of fibroglandular density. BI-RADS CATEGORY: 2 - BENIGN RECOMMENDATION: Screening bilateral mammogram is recommended in 1 year. MAMMO LOCATION: [facility], [address] [place] [address], [address], . . -------- FINAL REPORT -------- Dictated By: Arlet Howard Dictated Date: 03/05/2025 10:05 ET Assigned Physician: Arlet Howard Reviewed and Electronically Signed By: Arlet Howard Signed Date: 03/05/2025 10:08 ET Workstation ID: [id number] Transcribed By: Self Edit Transcribed Date: 03/05/2025 [...] distortion, or suspicious calcifications. Procedure Note Arlet Howard MD - 03/05/2025 EXAM: Screening Mammogram CLINICAL: [...] is recommended in 1 year. MAMMO LOCATION: [facility], [address] [place] [address], [address], . . -------- FINAL REPORT -------- Dictated By: Arlet Howard Dictated Date: 03/05/2025 10:05 ET Assigned Physician: Arlet Howard Reviewed and Electronically Signed By: Arlet Howard Signed Date: 03/05/2025 10:08 ET Workstation ID: [id number] Transcribed By: Self Edit Transcribed Date: 03/05/2025 10:05 ET Tracee Chavez MD IMG BI PROCEDURES Final Result * (ABNORMAL) Lipid panel with reflex to direct LDL (11/30/2024 10:26 AM EDT) Cholesterol 253(H) 0 - 200 mg/dL LAB CHEMISTRY METHOD 11/30/2024 1:25 PM EDT [facility] Triglycerides 175(H) 0 - 150 mg/dL LAB CHEMISTRY METHOD 11/30/2024 1:25 PM [facility] HDL 30(L) >=40 mg/dL LAB CHEMISTRY METHOD 11/30/2024 1:25 PM EDT [facility] LDL Calculated 188(H) 0 - 100 mg/dL LAB CHEMISTRY METHOD 11/30/2024 1:25 PM EDT [facility] VLDL Cholesterol Richard 35 mg/dL [facility] Non HDL Chol. (LDL+VLDL) 223(H) <145 mg/dL LAB CHEMISTRY METHOD 11/30/2024 1:25 PM EDT [facility] Chol/HDL Ratio 8.4(H) 0.0 - 4.4 LAB CHEMISTRY METHOD 11/30/2024 1:25 PM [facility] Blood Venous blood specimen / Unknown Venipuncture / Unknown 11/30/2024 10:26 AM EDT 11/30/2024 10:26 AM EDT us Tracee Chavez MD LAB BLOOD ORDERABL ES Final Result [facility] [address] [place] [address], [place] [phone] * (ABNORMAL) Comprehensive metabolic panel (11/30/2024 10:26 AM EDT) Sodium 141 133 - 145 mmol/L LAB CHEMISTRY METHOD 11/30/2024 1:25 PM [facility] Potassium 4.5 3.5 - 5.5 mmol/L LAB CHEMISTRY METHOD 11/30/2024 1:25 PM [facility] Chloride 105 96 - 110 mmol/L LAB CHEMISTRY METHOD 11/30/2024 1:25 PM [facility] CO2 27 21 - 32 mmol/L LAB CHEMISTRY METHOD 11/30/2024 1:25 PM [facility] Anion Gap 9 3 - 11 LAB CHEMISTRY METHOD 11/30/2024 1:25 PM [facility] Glucose 109(H) 70 - 100 mg/dL LAB CHEMISTRY METHOD 11/30/2024 1:25 PM [facility] BUN 22 5 - 25 mg/dL LAB CHEMISTRY METHOD 11/30/2024 1:25 PM [facility] Creatinine 1.03 0.50 - 1.10 mg/dL LAB CHEMISTRY METHOD 11/30/2024 1:25 PM [facility] eGFR 58(L) >=60 mL/min/1. 73m2 LAB CHEMISTRY METHOD 11/30/2024 1:25 PM [facility] Comment:Calculation based on the Chronic Kidney Disease Epidemiology Collaboration (CKD-EPI) equation refit without adjustment for race. BUN/Creatinine Ratio 21.4 LAB CHEMISTRY METHOD 11/30/2024 1:25 PM EDT [facility] Calcium 10.3 8.5 - 10.5 mg/dL LAB CHEMISTRY METHOD 11/30[facility]2024 [facility] AST (SGOT) 133(H) 10 - 42 unit/L LAB CHEMISTRY METHOD 11/30/2024 1:25 PM T [facility] ALT (SGPT) 125(H) 10 - 60 unit/L LAB CHEMISTRY METHOD 11/30/2024 1:25 PM [facility] Alkaline Phosphatase 197(H) 42 - 121 unit/L LAB CHEMISTRY METHOD 11/30/2024 1:25 PM [facility] Total Protein 7.3 6.0 - 8.0 g/dL LAB CHEMISTRY METHOD [facility]/30[facility]2024 [facility] Albumin 3.7 3.2 - 5.0 g/dL LAB CHEMISTRY METHOD 11/30/2024 1:25 PM [facility] Total Bilirubin 0.5 0.0 - 1.4 mg/dL LAB CHEMISTRY METHOD 11/30/2024 1:25 PM [facility] Blood Venous blood specimen / Unknown Venipuncture / Unknown 11/30/2024 10:26 AM EDT 11/30/2024 10:26 AM EDT us Tracee Chavez MD LAB BLOOD ORDERABL ES Final Result [facility] [address] [place] [address], [place] [phone] * External Cologuard (FIT-DNA) Report (06/21/2024) us [...] IMPRESSION: IMPRESSION: Osteoporosis by WHO criteria. The [facility] Department of Internal Medicine recommends using National [...] alternative screening schedule based on sydney Guerra., [facility] August 06, 2011 for patients [...] IMPRESSION: IMPRESSION: Osteoporosis by WHO criteria. The [facility] Department of Internal Medicine recommendsusing National Osteoporosis [...] alternative screening schedule based on sydney Guerra., [place] 2011 for patients with osteopenia (based on [...] [employer] Care Teams Coding Analyst Relationship Specialty Start Date End Date Tracee Chavez MD [address] [place] [address] PCP - General Internal Medicine 03/11/22
--- OUTSIDE RECORDS SUMMARY | 2025-05-02 18:01 | XMS_ITS | Encounter Summary ---
Author Organization [facility] Address [address] [place] [address] Care Team Providers Care Video Network Engineer Name Role Phone Tracee Chavez MD Primary Care Prov ider Reason for Visit * Reason Onset Date Comments Fitting for DME 05/02/2025 Ostomy Supplies Encounter Details Date Type Department Care Team ([facility] Contact Info) Description 05/02/2025 Telephone Adult Medicine [address] [phone] Tracee Chavez MD [address] [place] [phone] Social History Tobacco Use Types Packs/Day Years [...] care for your loved ones. For example, professor of early childhood education or elderly care for an older adult? [...] on file documented as of this encounter Progress Notes * Nam Fay - 05/02/2025 8:24 AM EDT DME REQUEST Name of Product: Ostomy Supplies Drain bag [place] tape Gauze pads Specific information about product [id number] # Needed SEE FORM Reason patient is asking for this supply? OSTOMY When completed: Fax to other office/MD/pharmacy at fax # [phone] Who is requested? [facility] Is this a fax request?YES Have you told the patient it will take 7-10 days for completion of this request? No documented in this encounter Plan of Treatment Upcoming Encounters Date Type Department Care Team (Late st Contact Info) Description 05/22/2025 11:15 AM EST Office Visit Adult Medicine [facility] [address] [place], [place] [phone] Tracee Chavez MD [address] [place], [place] 08/10/2025 9:20 AM EST Office Visit [facility] [address] [phone] Federico Jackson MD [address] [address] documented as of this encounter Visit Diagnoses Not on filedocumented in this encounter Additional Health Concerns Assessment Noted Time PHQ-9 Depression Total Score: 2 10/13/19 25 11:12 AM EDT documented as of this encounter Care Teams Video Network Engineer Relationship Specialty Start Date End Date Tracee Chavez MD [address] [place] [address] PCP - General Internal Medicine 03/11/22 documented as of this encounter
== END 2025-05-02 15:05 | disposition home or self-care (01) ==
LOC: HO.HGS 14:17
PROVIDERS: PCP Internal Medicine; Visit Provider Surgery
DX: Z90.49 Acquired absence of other specified parts of digestive tract (principal)
CPT/HCPCS: 99024

== ENCOUNTER → 2025-05-02 14:16 | Outpatient (BNVA) | payer MEDICARE, SELFPAY | PROVIDERS: PCP Internal Medicine; Visit Provider Surgery | DX: Z48.03 Encounter for change or removal of drains (principal) | CPT/HCPCS: 99212 ==

== ENCOUNTER 2025-05-10 14:31 | Outpatient (AMB) | payer MEDICARE, SELFPAY ==
--- NOTE | 2025-05-10 14:34 | MHC.OFFVIS ---
Vital Signs 05/10/25 14:35 Height 5 ft 2 in Weight 105 lb BMI 19.2 Intake Visit Reasons: s/p lap leticia~ 1wk follow up Intake Note: This patient presents for a one week follow-up status post DENINS drain removal, Hx lap leticia. Pt c/o; no complaints at this time. Associate Programmer Analyst Required: No Accompanied by: Spouse Allergies amoxicillin (AMOXICILLIN) Allergy (Unknown, Verified 05/10/25 14:40) ANAPHYLAXIS clindamycin (CLINDAMYCIN) Allergy (Unknown, Verified 05/10/25 14:40) NAUSEA & VOMITING codeine (CODEINE) Allergy (Unknown, Verified 05/10/25 14:40) NAUSEA & VOMITING prochlorperazine (From COMPAZINE) Allergy (Unknown, Verified 05/10/25 14:40) DRY MOUTH HPI HPI s/p lap leticia~ 1wk follow up: Details: She had undergone laparoscopic cholecystectomy with Dr. Daniels last 04/21/2025. She had a DENNIS drain placed at that time. Her DENNIS drain had significant output which resembled ascites so this was not removed on her discharge on postop day 4. I had removed her DENNIS drain last week on her postop visit in the office. She continues to do well. She describes good oral intake. She denies significant pain. [facility] Medical History Myocardial infarction CAD (coronary artery disease) Hypercholesteremia Hypertension Surgical History Hx laparoscopic cholecystectomy (~04/21/25) Status post laparoscopic cholecystectomy History of PTCA Social History Household Members: Spouse Housing: Condominium Do you presently have visiting nurse or other home services: No Patient Tobacco Use Status: Never used Tobacco service: No Review of Systems Const Denies chills and Denies fever(s) Physical Exam Const General: comfortable and no acute distress Eyes Other: Anicteric sclerae Resp Effort & Inspection: normal respiratory effort GI Other: All incisions are well healed Palpation (GI): Soft to palpation, not firm and nontender Assessment & Plan Assessment & Plan (1) Status post laparoscopic cholecystectomy: Code(s): Z90.49 - Acquired absence of other specified parts of digestive tract Category: Surgical Plan: She is doing very well. All incisions are well healed. She has good GI functions. Her abdomen remained soft and benign I had recommended for her to be seen by her primary care physician at some point as she had some ascites postoperatively. Also, her liver appeared to be nodular according to Dr. Daniels so LFTs should be followed as well She can otherwise follow up with me on a p.r.n. basis. Coding Level of Care Code Global (73781) Diagnoses Status post laparoscopic cholecystectomy Z90.49
[2025-05-10 14:35] VITALS: BMI 19.2
--- OUTSIDE RECORDS SUMMARY | 2025-05-10 18:23 | XMS_ITS | Encounter Summary ---
Author Organization [facility] Address [address] [place] [address] Care Team Providers Care Car Pusher Name Role Phone Tracee Chavez MD Primary Care Prov ider Reason for Visit * Reason Onset Date Comments Fitting for DME 05/02/2025 Ostomy Supplies Encounter Details Date Type Department Care Team ([facility] Contact Info) Description 05/02/2025 Telephone Adult Medicine [address] [phone] Tracee Chavez MD [address] [place] [phone] Social History Tobacco Use Types Packs/Day Years [...] care for your loved ones. For example, early childhood education worker or elderly care for an older adult? [...] as of this encounter Progress Notes * Sylvester Beltrán MA - 05/08/2025 10:49 AM EDT Signed orders hand faxed and scanned to Kevin Orders scanned. * Sylvester Beltrán MA - 05/03/2025 11:44 AM EDT To PCP for sig * Nam Fay - 05/02/2025 8:24 AM EDT DME REQUEST Name of Product: Ostomy Supplies Drain bag [place] tape Gauze pads Specific information about product [id number] # Needed SEE FORM Reason patient is asking for this supply? OSTOMY When completed: Fax to other office/MD/pharmacy at fax # [phone] Who is requested? [facility] Is this a fax request?YES Have you told the patient it will take 7-10 days for completion of this request? No documented in this encounter Plan of Treatment Upcoming Encounters Date Type Department Care Team (Late st Contact Info) Description 05/18/2025 10:30 AM EDT Office Visit Adult Medicine [address] [phone] Tracee Chavez MD [address] [place] [address] 05/22/2025 11:15 AM EST Office Visit Adult Medicine [address] [phone] Tracee Chavez MD [address] [place] [address] 08/10/2025 9:20 AM EST Office Visit [facility] [address] [phone] Federico Jackson MD [address] [address] documented as of this encounter Visit Diagnoses Not on filedocumented in this encounter Additional Health Concerns Assessment Noted Time PHQ-9 Depression Total Score: 2 10/13/19 25 11:12 AM EDT documented as of this encounter Care Teams Car Pusher Relationship Specialty Start Date End Date Tracee Chavez MD [address] [place] [phone] PCP - General Internal Medicine 03/11/22 documented as of this encounter
--- OUTSIDE RECORDS SUMMARY | 2025-05-10 18:23 | XMS_ITS | Encounter Summary ---
Author Organization [facility] Address [address] [place] [address] Care Team Providers Care Barber Apprentice Name Role Phone Tracee Chavez MD Primary Care Prov ider Encounter Details Date Type Department Care Team (Late st Contact Info) Description 01/05/2025 Lab Requisition [facility] - Main Lab [address] [facility] [place] [phone] Ariela Saunders MD [address] [facility] Get [address] [place] [address] Other abnormal findings in urine Social History [...] for your loved ones. For example, child specialist or elderly care for an older adult? [...] 10:30 AM EDT Office Visit Adult Medicine [address] [phone] Tracee Chavez MD [address] [place] [address] 05/22/2025 11:15 AM EST Office Visit Adult Medicine [facility] [address] [place], [place] [phone] Tracee Chavez MD [address] [place], [place] 08/10/2025 9:20 AM EST Office Visit [facility] - [facility] [address] [phone] Federico Jackson MD [address] [address] documented as of this encounter Procedures Procedure Name Priority Date/Time Associated Diagnosis Comments CULTURE URINE Routine 01/05/2025 10:20 AM EDT Other abnormal findings in urine documented in this encounter Results * (ABNORMAL) Culture urine (01/05/2025 10:20 AM EDT) Culture, Urine >100,000 CFU/mL Escherichia coli(A) GIDEON 01/07/2025 8:00 AM EDT [facility] Urine Urine specimen from urethra / Unknown 01/05/2025 10:20 AM EDT 01/05/2025 12:28 PM EDT Narrative Organism Antibiotic Method Susceptibility Escherichia coli Amoxicillin/Clavulanate GIDENO 4 ug/ml: Susceptible Escherichia coli Ampicillin/Sulbactam GIDEON [...] MICROBIOLOGY - G ENERAL ORDERABLES Final Result [facility] [address] [place] [address], documented in this encounter Visit Diagnoses Diagnosis Other abnormal findings in urine documented in this encounter Additional Health Concerns Assessment Noted Time PHQ-9 Depression Total Score: 2 10/13/19 25 11:12 AM EDT documented as of this encounter Care Teams Barber Apprentice Relationship Specialty Start Date End Date Tracee Chavez MD [address] [place] [phone] PCP - General Internal Medicine 03/11/22 documented as of this encounter
--- OUTSIDE RECORDS SUMMARY | 2025-05-10 18:24 | XMS_ITS | Clinical Summary ---
Author Organization [facility] Address [address] [place] [phone] Phone Care Team Providers Care Medical Dir Name Role Phone Tracee Chavez MD Primary [...] Fibromyalgia 06/28/2024 Overview (06/28/2024): Dr. Horta - [facility] pain [facility] Primary insomnia 04/13/2024 Hepatic steatosis [...] sparing. Small amount of gallbladder sludge. POS [id number] Mild episode of recurrent ma nedra depressive disorder ([facility] V24) 05/11/2019 Assessment & Plan (04/17/2025 [...] kidney disease) stage 3, GFR 30-59 ml/min ([facility] V24, [facility] V28) 08/10/2014 Assessment & Plan (10/12/2024 [...] no high grade arrythmia Coronary atherosclerosis of [place] coronary vess el 02/08/2006 Overview (06/28/2024): s/p stent 1999, RCA ECHO 2005: IMPRESSION: Normal left ventricular systolic function without specific wall motion abnormalities. Trace mitral regurgitation. Assessment & Plan (10/12/2024 12:00 PM EDT): Orders: Comprehensive metabolic panel; Future Lipid panel with reflex to direct LDL; Future Encounters Date Type Department Care Team Description 05/03/2025 Telephone Adult Medicine [address] [phone] Tracee Gordon MD 05/02/2025 Telephone Adult Medicine [address] [phone] Tracee Gordon MD 04/17/2025 11:00 AM EDT Office Visit Adult Medicine [address] [phone] Tracee Gordon MD Primary hypertension (Primary Dx); Mixed hyperlipidemia; Mild episode of recurrent major depressive disorder (CMS/HCC V24) 03/01/2025 1:55 PM EDT - 03/01/2025 11:59 PM EDT Hospital Encounter Radiology Department - [address] [phone] Encounter for screening mammogram for breast cancer Discharge Disposition: Home or Self Care from Last 3 Months Immunizations Immunization Administration Dates Next Due Influenza trivalent, 0.5mL ( Fluad) 65yo and older 04/13/2024,06/03/2023,06/02/2022,04/22,04/25/2020,05/30/2019,05/05/2018 ,07/01/2017 Influenza trivalent, 0.5mL, preservative free (Fluarix; FluLaval; Fluzone) ages 6mo and older (Afluria) 3 years and older 03/30/2016,06/06/2015,04/13/2014,04/10,06/16/2012,06/14/2011,07/04/2010 ,04/05/2008,05/18/2007,06/27/2006,1211/2004 Pneumococcal conjugate 13 va lent (Prevnar 13, [...] W/O BSO BREAST SURGERY 2013 Bilateral PROCEDURE: LA UNLISTED PROCEDURE BREAST; COMMENT: breast reduction BREAST BIOPSY Left PROCEDURE: BX BREAST; PERC NEEDLE CORE W/IMAG GUID; COMMENT: lt side, many yrs ago COLONOSCOPY 2013 PROCEDURE: HISTORICAL COLONOSCOPY; COMMENT: normal UPPER GASTROINTESTINAL ENDOSCOPY 2012 PROCEDURE: LA UPPER GI ENDOSCOPY PERFORMED; COMMENT: no esophagitis on PPI treatment; 3 cm HH. COLONOSCOPY 2001 PROCEDURE: HISTORICAL COLONOSCOPY; COMMENT: negative UPPER GASTROINTESTINAL ENDOSCOPY 01/31/2018 PROCEDURE: LA UPPER GI ENDOSCOPY PERFORMED; COMMENT: 3 cm HH; otherwise normal on PPI rx. BREAST BIOPSY Left PROCEDURE: BX BREAST; PERC NEEDLE CORE W/IMAG GUID; COMMENT: DENSE HYPOCELLULAR STROMAL FIBROSIS WITH FOCAL HEMOSIDERIN-LADEN BREAST LUMPECTOMY HYSTERECTOMY Medical History Medical History Date Comments Coronary atherosclerosis of unspecified type of vessel, [place] or graft 02/08/2006 DX:Coronary atherosclerosis of unspecified type of vessel, [place] or graft; COMMENT: s/p stent 2000, RCA [...] case Fibromyalgia DX:Fibromyalgia; COMMENT: Dr. Horta - [facility] pain [facility] Myofascial pain syndrome DX:Myof ascial pain syndrome; COMMENT: Dr. Horta - [facility] pain [facility] Vitamin D deficiency 01/25/2012 DX:Vitamin D deficiency Panic disorder 10/23/2014 DX:Panic disorde r Osteoporosis 01/13/2012 DX:Osteoporosis Hypertension 04/13/2006 DX:Hypertension Hyperlipidemia 08/24/2013 DX:Hyperlipidemi a Depression, major, recurrent , in remission ([facility]/HCC V24) 07/05/2014 DX:Depression, major, recurr ent, in remission (HCC) CKD (chronic kidney disease) stage 3, GFR 30-59 ml/min (CMS/HCC V24, CMS/HCC V28) 08/10/2014 DX:CKD (chronic kidney disea se) stage 3, GFR 30-59 ml/min ([facility]) History of other specified c onditions [...] care for your loved ones. For example, teacher early childhood development or elderly care for an older adult? 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 MAMMO LOCATION: [facility], [address] [place] [address], [id number], . . -------- FINAL REPORT -------- Dictated By: Arlet Howard Dictated Date: 03/05/2025 10:05 ET Assigned Physician: Arlet Howard Reviewed and Electronically Signed By: Arlet Howard Signed Date: 03/05/2025 10:08 ET Workstation ID: [id number] Transcribed By: Self Edit Transcribed Date: 03/05/2025 [...] is recommended in 1 year. MAMMO LOCATION: [facility], [address] [place] [address], [facility][note 3] [phone]. . -------- FINAL REPORT -------- Dictated By: Arlet Howard Dictated Date: 03/05/2025 10:05 ET Assigned Physician: Arlet Howard Reviewed and Electronically Signed By: Arlet Howard Signed Date: 03/05/2025 10:08 ET Workstation ID: [id number] Transcribed By: Self Edit Transcribed Date: 03/05/2025 10:05 ET us Tracee Chavez MD IM BI PROCEDURES Final Result * (ABNORMAL) Lipid panel with reflex to direct LDL (11/30/2024 10:26 AM EDT) Cholesterol 253(H) 0 - 200 mg/dL LAB CHEMISTRY METHOD 11/30/2024 1:25 PM EDT [facility] Triglycerides 175(H) 0 - 150 mg/dL LAB CHEMISTRY METHOD 11/30/2024 1:25 PM EDT [facility] HDL 30(L) >=40 mg/dL LAB CHEMISTRY METHOD 11/30/2024 1:25 PM EDT [facility] LDL Calculated 188(H) 0 - 100 mg/dL LAB CHEMISTRY METHOD 11/30/2024 1:25 PM EDT [facility] VLDL Cholesterol Richard 35 mg/dL LAB CHEMISTRY METHOD 11/30/2024 1:25 PM EDT [facility] Non HDL Chol. (LDL+VLDL) 223(H) <145 mg/dL LAB CHEMISTRY METHOD 11/30/2024 1:25 PM EDT [facility] Chol/HDL Ratio 8.4(H) 0.0 - 4.4 LAB CHEMISTRY METHOD 11/30/2024 1:25 PM EDT [facility] Blood Venous blood specimen / Unknown Venipuncture / Unknown 11/30/2024 10:26 AM EDT 11/30/2024 10:26 AM EDT Tracee Chavez MD LAB BLOOD ORDERABL ES Final Result [facility] [address] [place] [address], [place] [phone] * (ABNORMAL) Comprehensive metabolic panel (11/30/2024 10:26 AM EDT) Sodium 141 133 - 145 mmol/L LAB CHEMISTRY METHOD 11/30/2024 1:[address] [facility] Potassium 4.5 3.5 - 5.5 mmol/L LAB CHEMISTRY METHOD 11/30/2024 1:25 PM T [facility] Chloride 105 96 - 110 mmol/L LAB CHEMISTRY METHOD 11/30/2024 1:25 PM T [facility] CO2 27 21 - 32 mmol/L LAB CHEMISTRY METHOD 11/30/2024 1:[address] [facility] Anion Gap 9 3 - 11 LAB CHEMISTRY METHOD 11/30/2024 1:25 PM T [facility] Glucose 109(H) 70 - 100 [...] 21.4 LAB CHEMISTRY METHOD 11/30/2024 1:[address] [facility] Calcium 10.3 8.5 - 10.5 mg/dL LAB CHEMISTRY METHOD 11/30/2024 1:[address] [facility] AST (SGOT) 133(H) 10 - 42 unit/L LAB CHEMISTRY METHOD 11/30/2024 1:[address] [facility] ALT (SGPT) 125(H) 10 - 60 unit/L LAB CHEMISTRY METHOD 11/30/2024 1:[address] [facility] Alkaline Phosphatase 197(H) 42 - 121 unit/L LAB CHEMISTRY METHOD 11/30/2024 1:[address] [facility] Total Protein 7.3 6.0 - 8.0 g/dL LAB CHEMISTRY METHOD 11/30/2024 1:[address] [facility] Albumin 3.7 3.2 - 5.0 g/dL LAB CHEMISTRY METHOD 11/30/2024 1:[address] [facility] Total Bilirubin 0.5 0.0 - 1.4 mg/dL LAB CHEMISTRY METHOD 11/30/2024 1:[address] [facility] Blood Venous blood specimen / Unknown Venipuncture / Unknown 11/30/2024 10:26 AM EDT 11/30/2024 10:26 AM EDT us Tracee Chavez MD LAB BLOOD ORDERABL ES Final Result [facility] ([email or web address] [address] [place] [address], [place] [phone] * External Cologuard (FIT-DNA) Report (06/21/2024) us [...] alternative screening schedule based on sydney Guerra., [facility] August 06, 2011 for patients with [...] alternative screening schedule based [facility]., [facility] for patients with [facility]openia (based on hip BMD T-score) is as follows: * advanced osteopenia (T scores -2.00 to -2.49), BMD testing every year * moderate osteopenia (T scores -1.50 to -1.99), BMD testing every 5years mild osteopenia or normal BMD (T scores -1.50 and higher), BMD testingevery 15 years Hattie GONZALEZ IM DXA PROCEDURES Final Result * Hepatitis C Screening (04/04/2013) Pathologist [facility] Hepatitis C Screening abstracted Historical Provider HEALTH MAINTENANCE Final Result from Last 3 Months or Most Recently Relevant to Health Maintenance Insurance [employer] [place] [employer] Care Teams Medical Dir Relationship Specialty Start Date End Date Tracee Chavez MD [address] [place] [address] PCP - General Internal Medicine 03/11/22
--- OUTSIDE RECORDS SUMMARY | 2025-05-10 18:24 | XMS_ITS | Encounter Summary ---
Author Organization [facility] Address [address] [place] [address] Care Team Providers Care Genetics Nurse Name Role Phone Tracee Chavez MD Primary Care Prov ider Encounter Details Date Type Department Care Team ([facility] st Contact Info) Description 10/31/2024 Lab Requisition [facility] - Main Lab [address] [facility] [place] [phone] Ruthy Nguyen NP [address] [facility] [address] [place] [address] Urinary tract infection, site not specified Social [...] for your loved ones. For example, child caregiver private home or elderly care for an older adult? [...] 10:30 AM EDT Office Visit Adult Medicine [address] [phone] Tracee Chavez MD [address] [place] [address] 05/22/2025 11:15 AM EST Office Visit Adult Medicine [facility] [address] [place], [place] [phone] Tracee Chavez MD [address] [place], [place] 08/10/2025 9:20 AM EST Office Visit [facility] [address] [phone] Federico Jackson MD [address] [address] documented as of this encounter Procedures Procedure Name Priority Date/Time Associated Diagnosis Comments BACTERIAL IDENTIFICATION AND SUSCEPTIBILITY, AEROBIC Routine 10/30/2024 12:00 AM EDT Urinary tract infection, site not specified documented in this encounter Results * (ABNORMAL) Bacterial identification and susceptibility, aerobic (10/30/2024 12:00 AM EDT) Culture, Bacterial ID and Sensitivity Escherichia coli(A) GIDEON 11/01/2024 8:46 AM EDT [facility] Other Urine specimen from urethra [...] Trimethoprim/Sulfamethoxazole GIDEON <=20 ug/ml: Susceptible Ruthy Nguyen TRACING LATHE SET UP OPERATOR LAB MICROBIOLOGY - GENERA L ORDERABLES Final Result [facility] ([facility]) [facility] [address] [place] [address], documented in this encounter Visit Diagnoses Diagnosis Urinary tract infection, site not specified documented in this encounter Additional Health Concerns Assessment Noted Time PHQ-9 Depression Total Score: 2 10/13/19 25 11:12 AM EDT documented as of this encounter Care Teams Genetics Nurse Relationship Specialty Start Date End Date Tracee Chavez MD [address] [place] [address] PCP - General Internal Medicine 03/11/22 documented as of this encounter
== END 2025-05-10 14:48 | disposition home or self-care (01) ==
LOC: HO.HGS 14:32
PROVIDERS: PCP Internal Medicine; Visit Provider Surgery
DX: Z90.49 Acquired absence of other specified parts of digestive tract (principal)
CPT/HCPCS: 99024

== ENCOUNTER → 2025-05-10 14:31 | Outpatient (BNVA) | payer MEDICARE, SELFPAY | PROVIDERS: PCP Internal Medicine; Visit Provider Surgery | DX: Z98.890 Other specified postprocedural states (principal); Z90.49 Acquired absence of other specified parts of digestive tract | CPT/HCPCS: 99212 ==

== ENCOUNTER 2025-06-08 13:18 | Outpatient (AMB) | payer MEDICARE, SELFPAY ==
[2025-06-08 13:19] VITALS: BP 130/82; PULSE 62; TEMP 36.3; O2SAT 98; BMI 19.2
--- NOTE | 2025-06-08 13:19 | AM.OFFWIN_ITS ---
Intake Vital Signs 06/08/25 13:19 Height 5 ft 2 in Weight 105 lb BMI 19.2 BP 130/82 Blood Pressure Location Lt brachial Position Sitting Pulse 62 Pulse Source Pulse Oximeter Temp 97.4 F Temp Source Oral Pulse Oximetry (%) 98 Oxygen Delivery Method Room Air Intake Visit Reasons: EP pain while urinating frequency urination Intake Note: Patient presents c/o urinary frequency, painful urination x3 weeks. Patient Tobacco Use Status: Never used Tobacco Allergies Penicillins Allergy (Severe, Verified 06/08/25 13:27) Anaphylaxis amoxicillin (AMOXICILLIN) Allergy (Unknown, Verified 06/08/25 13:27) ANAPHYLAXIS clindamycin (CLINDAMYCIN) Allergy (Unknown, Verified 06/08/25 13:27) NAUSEA & VOMITING codeine (CODEINE) Allergy (Unknown, Verified 06/08/25 13:27) NAUSEA & VOMITING prochlorperazine (From COMPAZINE) Allergy (Unknown, Verified 06/08/25 13:27) DRY MOUTH HPI EP pain while urinating frequency urination HPI Details This is a 75-year-old female patient who presents to the walk-in clinic today with report of urinary urgency and frequency over the last several weeks. Also was having intermittent sharp pains in her bladder area when she voids. Denies any fevers/chills or flank pain. She was able to give a very small amount of urine for dip in the office. She has been taking [id number] AZO with some minor relief. [facility] Medical History Myocardial infarction CAD (coronary artery disease) Hypercholesteremia Hypertension Surgical History Hx laparoscopic cholecystectomy (~04/21/25) Status post laparoscopic cholecystectomy History of PTCA Social History Household Members: Spouse Housing: Condominium Do you presently have visiting nurse or other home services: No Patient Tobacco Use Status: Never used Tobacco service: No Review of Systems Const All systems reviewed & are unremarkable except as noted in HPI and below Physical Exam Vital Signs: Last Vital Signs Temp 97.4 F 06/08/25 13:19 Pulse 62 06/08/25 13:19 BP 130/82 06/08/25 13:19 Pulse Ox 98 06/08/25 13:19 Oxygen Delivery Method Room Air 06/08/25 13:19 BMI result Body Mass Index 19.2 Const General: cooperative, healthy appearing, comfortable and no acute distress Resp Effort & Inspection: normal respiratory effort Auscultation: clear to auscultation bilaterally Cardio Rate: regular rate Rhythm: regular rhythm General: Yes bladder normal to palpation and Yes no CVA tenderness Bimanual exam- vagina & uterus: bladder normal to palpation Back/Spine/Pelvis Back: no CVA tenderness Skin General skin exam: no rashes or lesions noted Extrem General: Yes no clubbing, cyanosis or edema Psych Appearance: grossly normal Mental Status: mental status grossly normal Speech and movement: Normal speech and movement present Assessment & Plan Assessment & Plan (1) UTI (urinary tract infection): Code(s): N39.0 - Urinary tract infection, site not specified Qualifiers: Urinary tract infection type: acute cystitis Hematuria presence: with hematuria Qualified Code(s): N30.01 - Acute cystitis with hematuria Plan: Urine dip positive for leuk, protein, blood, brice. We will treat for UTI. Patient has many antibiotic allergies. Will send Macrobid. We reviewed indications, use, possible side effects of medication. She can also continue AZO for symptom management as needed. Advised increased hydration and Tylenol as needed. Patient was unable to provide any additional urine sample beyond the initial small sample she provided. We discussed that if her symptoms persist beyond treatment, or worsen, she is recommended to return to the clinic to provide additional sample so that culture may be sent. Patient verbalizes understanding and agrees to plan. Medications: New nitrofurantoin macrocrystal Take twice a day with food for 5 days. 100 mg PO BID 10 caps 0RF 5 days N39.0 - Urinary tract infection, site not specified Coding Level of Care Code Est Pt Level 4 (61933) Diagnoses Acute cystitis with hematuria N30.01 Urinary tract infection type: acute cystitis Hematuria presence: with hematuria
--- OUTSIDE RECORDS SUMMARY | 2025-06-08 13:33 | XMS_ITS | Encounter Summary ---
Author Organization [facility] Address [address] [place] [address] Care Team Providers Care Tablet Tester Name Role Phone Leonardo Gurrola MD Primary Care Provider Tracee Penaloza MD Primary Care Prov ider Reason for Visit * Reason Comments E-prescribe Rx Request Encounter Details Date Type Department Care Team Description 09/19/2021 Refill Adult Medicine [address] [address] Leonardo Gurrola MD E-prescribe Rx Request Social History Tobacco Use Types Packs/Day Years [...] or suspected to have Coronavirus / COVID-19? Yes 08/25/2021 12:54 PM EST documented as of this encounter Miscellaneous Notes * Telephone Encounter - Precious Luis F - 09/19/2021 8:35 AM EST Patient would like script to be: E-PRESCRIBED/FAXED TO PHARMACY WHEN WAS THE PATIENT'S LAST APPOINTMENT IN ADULT MEDICINE? 08/25/21 WHEN WAS THE LAST TIME THE PATIENT SAW THEIR PCP? 04/22/21 Does patient have an upcoming appointment? Yes 09/22/21 (THE MEDICATION REQUESTED IS ON THE MED LIST ABOVE) All of the medications requested were on the CURRENT MEDS list Did you check the Pharmacy information above?: YES Patient wants: 90 -day supply Is this a mail order prescription request ? NO If the refill is from a FAXED refill request what is the RX # listed on the fax? N/A Patients current insurance carrier is: Payor: [facility] / Plan: [facility] MEDICARE PREMIUM $10 [place] / Product Type: MEDICARE [id number] documented in this encounter Plan of Treatment Not on file documented as of this encounter Visit Diagnoses Not on filedocumented in this encounter Care Teams Tablet Tester Relationship Specialty Start Date End Date Leonardo Gurrola MD PCP - General Internal Medicine 10/16/11 03/10/22 Tracee Diaz MD [address] [place] [address] PCP - General Internal Medicine 03/11/22 documented as of this encounter
--- OUTSIDE RECORDS SUMMARY | 2025-06-08 13:33 | XMS_ITS | Encounter Summary ---
Author Organization [facility] Address [address] [place] [address] Care Team Providers Care Plastic Surgery Manager Name Role Phone Tracee Diaz MD Primary Care Prov ider Encounter Details Date Type Department Care Team Description 03/26/2023 [place] Clerk Report Medical Records [address] [place] [address] Zahida Pappas MD Social History Tobacco Use Types Packs/Day Years [...] Exposure Response Date Recorded In the last 10 days, have dixie u been in contact with someone who was confirmed or suspected to have Coronavirus/COVID-19? No / Unsure 03/23/2023 12:27 PM EDT documented as of this encounter Plan of Treatment Not on file documented as of this encounter Visit Diagnoses Not on filedocumented in this encounter Care Teams Plastic Surgery Manager Relationship Specialty Start Date End Date Tracee Diaz MD [address] [place], [place] [phone] PCP - General Internal Medicine 03/11/22 documented as of this encounter
--- OUTSIDE RECORDS SUMMARY | 2025-06-08 13:33 | XMS_ITS | Encounter Summary ---
Author Organization [facility] Address [address] [place] [address] Care Team Providers Care Learning Developer Name Role Phone Leonardo Gurrola MD Primary Care Provider Tracee Penaloza MD Primary Care Prov ider Encounter Details Date Type Department Care Team Description 05/14/2021 Lens Mounter Report Medical Records [address] [place] [address] Rafael Tamayo PA-C Social History Tobacco Use Types Packs/Day Years [...] on filedocumented in this encounter Care Teams Learning Developer Relationship Specialty Start Date End Date Leonardo Gurrola MD PCP - General Internal Medicine 10/16/11 03/10/22 Tracee Diaz MD [address] [place] [address] PCP - General Internal Medicine 03/11/22 documented as of this encounter
--- OUTSIDE RECORDS SUMMARY | 2025-06-08 13:33 | XMS_ITS | Encounter Summary ---
Author Organization [facility] Address [address] [facility] [place] [address] Care Team Providers Care Equipment Service Lead Name Role Phone Tracee Diaz MD Primary Care Prov ider Encounter Details Date Type Department Care Team Description 05/13/2023 Orders Only General Surgery [address] [place] [address] Buster Villatoro MD [address] [address] Abnormal mammogram; Mass of upper outer quadrant of left breast Social History Tobacco Use Types Packs/Day Years Used Date Smoking Tobacco: Never Smokeless Tobacco: Never Alcohol Use Standard Drinks/Week Comments Yes 0 (1 standard drink = 0.6 oz pur e alcohol) wine/ 2-3x month Sex Assigned at Date Recorded Not on file Job Start Date Occupation Industry Not on file Not on file Not on file documented as of this encounter Plan of Treatment Not on file documented as of this encounter Procedures Procedure Name Priority Date/Time Associated Diagnosis Comments SONO BREAST, LIMITED Routine 05/12/2023 Abnormal mammogram Mass of upper outer quadrant of left breast DX MAMMO INCL CAD BI Routine 05/12/2023 Abnormal mammogram Mass of upper outer quadrant of left breast documented in this encounter Results * SONO BREAST, LIMITED (05/12/2023) Buster Villatoro MD MAMMOGRAPHY * DX MAMMO INCL CAD BI (05/12/2023) Buster Villatoro MD MAMMOGRAPHY documented in this encounter Visit Diagnoses Diagnosis Abnormal mammogram Abnormal mammogram, unspecified Mass of upper outer quadrant of left breast documented in this encounter Care Teams Equipment Service Lead Relationship Specialty Start Date End Date Tracee Diaz MD [address] [place] [address] PCP - General Internal Medicine 03/11/22 documented as of this encounter
--- OUTSIDE RECORDS SUMMARY | 2025-06-08 13:33 | XMS_ITS | Encounter Summary ---
Author Organization [facility] Address [address] [facility] [place] [address] Care Team Providers Care Licensed Loan Officer Name Role Phone Leonardo Gurrola MD Primary Care Provider Tracee Penaloza MD Primary Care Prov ider Encounter Details Date Type Department Care Team Description 08/02/2014 Net C Developer Report Medical Records [address] [place] [address] Zahida Pappas MD Social History Tobacco Use [...] on filedocumented in this encounter Care Teams Licensed Loan Officer Relationship Specialty Start Date End Date Leonardo Gurrola MD PCP - General Internal Medicine 10/16/11 03/10/22 Tracee Diaz MD [address] [place] [address] PCP - General Internal Medicine 03/11/22 documented as of this encounter
--- OUTSIDE RECORDS SUMMARY | 2025-06-08 13:33 | XMS_ITS | Encounter Summary ---
Author Organization [facility] Address [address] [place] [address] Care Team Providers Care Transportation Aid Name Role Phone Leonardo Gurrola MD Primary Care Provider Tracee Penaloza MD Primary Care Prov ider Reason for Visit * Reason Comments E-prescribe Rx Request Encounter Details Date Type Department Care Team Description 08/23/2017 Refill Adult Medicine [address] [address] Leonardo Gurrola MD E-prescribe Rx Request Social [...] on file documented as of this encounter Miscellaneous Notes * Telephone Encounter - Dolly Hayes M.A. - 08/24/2017 10:37 AM EST Faxed to pharmacy * Telephone Encounter - Ana Calle M.A. - 08/24/2017 9:32 AM EST Lab Results Component Value Date NA 140 02/04/2017 K 3.9 02/04/2017 CO2 28.4 02/04/2017 CL 100 02/04/2017 BUN 18 02/04/2017 CREAT 1.1 02/04/2017 GLU 109 02/04/2017 CA 9.5 02/04/2017 GFR 53 02/04/2017 * Telephone Encounter - Jena Dunlap - 08/23/2017 6:29 PM EST Patient would like script to be: E-PRESCRIBED/FAXED TO PHARMACY WHEN WAS THE PATIENT'S LAST APPOINTMENT IN ADULT MEDICINE? 02/08/17 WHEN WAS THE LAST TIME THE PATIENT SAW THEIR PCP? Same as above Does patient have an upcoming appointment? No (THE MEDICATION REQUESTED IS ON THE MED LIST ABOVE) All of the medications requested were on the CURRENT MEDS list Did you check the Pharmacy information above?: YES Patient wants: 90 -day supply Is this a mail order prescription request ? NO Patients current insurance carrier is: Payor: [facility] FFS / Plan: HNE MEDICARE PREMIUM $15 [place] / Product Type: MEDICARE [id number] documented in this encounter Plan of Treatment Not on file documented as of this encounter Visit Diagnoses Not on filedocumented in this encounter Care Teams Transportation Aid Relationship Specialty Start Date End Date Leonardo Gurrola MD PCP - General Internal Medicine 10/16/11 03/10/22 Tracee Diaz MD [address] [place] [address] PCP - General Internal Medicine 03/11/22 documented as of this encounter
--- OUTSIDE RECORDS SUMMARY | 2025-06-08 13:33 | XMS_ITS | Encounter Summary ---
Author Organization [facility] Address [address] [facility] [place] [address] Care Team Providers Care Fund Manager Name Role Phone Leonardo Gurrola MD Primary Care Provider Tracee Penaloza MD Primary Care Prov ider Encounter Details Date Type Department Care Team Description 12/21/2013 Boring Machine Set Up Operator Report Medical Records [address] [place] [address] Tanna Soriano MD Social History Tobacco Use Types Packs/Day [...] on filedocumented in this encounter Care Teams Fund Manager Relationship Specialty Start Date End Date Leonardo Gurrola MD PCP - General Internal Medicine 10/16/11 03/10/22 Tracee Diaz MD [address] [place] [address] PCP - General Internal Medicine 03/11/22 documented as of this encounter
--- OUTSIDE RECORDS SUMMARY | 2025-06-08 13:33 | XMS_ITS | Encounter Summary ---
Author Organization [facility] Address [address] [place] [address] Care Team Providers Care Sheet Layer Name Role Phone Leonardo Gurrola MD Primary Care Provider Tracee Penaloza MD Primary Care Prov ider Encounter Details Date Type Department Care Team Description 10/04/2013 Hospital Medical Records [address] [place] [address] [place] MD Social History Tobacco Use Types Packs/Day [...] on filedocumented in this encounter Care Teams Sheet Layer Relationship Specialty Start Date End Date Leonardo Gurrola MD PCP - General Internal Medicine 10/16/11 03/10/22 Tracee Diaz MD [address] [place] [address] PCP - General Internal Medicine 03/11/22 documented as of this encounter
--- OUTSIDE RECORDS SUMMARY | 2025-06-08 13:33 | XMS_ITS | Encounter Summary ---
Author Organization [facility] Address [address] [place] [address] Care Team Providers Care Instructional Media Services Technician Name Role Phone Leonardo Gurrola MD Primary Care Provider Tracee Penaloza MD Primary Care Prov ider Encounter Details Date Type Department Care Team Description 04/01/2021 Chief Librarian Extension Department Report Medical Records [address] [place] [address] Elisa Reyna PA-C Social History Tobacco Use Types Packs/Day [...] on filedocumented in this encounter Care Teams Instructional Media Services Technician Relationship Specialty Start Date End Date Leonardo Gurrola MD PCP - General Internal Medicine 10/16/11 03/10/22 Tracee Diaz MD [address] [place], [place] [phone] PCP - General Internal Medicine 03/11/22 documented as of this encounter
--- OUTSIDE RECORDS SUMMARY | 2025-06-08 13:33 | XMS_ITS | Encounter Summary ---
Author Organization [facility] Address [address] [facility] [place] [address] Care Team Providers Care Adjunct Communications Faculty Member Name Role Phone Tracee Diaz MD Primary Care Prov ider Encounter Details Date Type Department Care Team Description 11/26/2022 Orders Only Radiology - [place] [address] [place] [address] Radiology, Authorizing Social History Tobacco Use Types Packs/Day Years [...] on filedocumented in this encounter Care Teams Adjunct Communications Faculty Member Relationship Specialty Start Date End Date Tracee Diaz MD [address] [place] [address] PCP - General Internal Medicine 03/11/22 documented as of this encounter
--- OUTSIDE RECORDS SUMMARY | 2025-06-08 13:33 | XMS_ITS | Encounter Summary ---
Author Organization [facility] Address [address] [facility] [place] [address] Care Team Providers Care Screenplay Writer Name Role Phone Leonardo Gurrola MD Primary Care Provider Tracee Penaloza MD Primary Care Prov ider Encounter Details Date Type Department Care Team Description 09/24/2014 University Demonstrator Report Medical Records [address] [place] [address] Elisa Reyna PA-C Social History Tobacco Use [...] on filedocumented in this encounter Care Teams Screenplay Writer Relationship Specialty Start Date End Date Leonardo Gurrola MD PCP - General Internal Medicine 10/16/11 03/10/22 Tracee Diaz MD [address] [place], [place] [phone] PCP - General Internal Medicine 03/11/22 documented as of this encounter
--- OUTSIDE RECORDS SUMMARY | 2025-06-08 13:33 | XMS_ITS | Encounter Summary ---
Author Organization [facility] Address [address] [facility] [place] [place] [address] Care Team Providers Care Pressure Tester Name Role Phone Leonardo Gurrola MD Primary Care Provider Tracee Penaloza MD Primary Care Prov ider Encounter Details Date Type Department Care Team Description 10/05/2014 Hospital Medical Records [address] [place] [address] Hayden Granda MD Social History Tobacco Use Types Packs/Day [...] on filedocumented in this encounter Care Teams Pressure Tester Relationship Specialty Start Date End Date Leonardo Gurrola MD PCP - General Internal Medicine 10/16/11 03/10/22 Tracee Diaz MD [address] [place] [address] PCP - General Internal Medicine 03/11/22 documented as of this encounter
--- OUTSIDE RECORDS SUMMARY | 2025-06-08 13:33 | XMS_ITS | Encounter Summary ---
Author Organization [facility] Address [address] [place] [address] Care Team Providers Care Cell Inspector Name Role Phone Jessica Bardales MD Primary Care Provider [phone] Arjun Casiano MD Primary Care Provider Oscar Torres Primary Care Provider [phone] Hope Gann MD Primary Care Provider Leonardo Gasca MD Primary Care Provider Tracee Penaloza MD Primary Care Prov ider Encounter Details Date Type Department Care Team Description 02/01/2006 [facility] Medical Records [address] [place] [address] Vargas Cornejo MD Social History Tobacco Use Types Packs/Day [...] on filedocumented in this encounter Care Teams Cell Inspector Relationship Specialty Start Date End Date Jessica Bardales MD [address] [place] [address] PCP - General 06/17/09 07/05/11 Arjun Casiano MD [address] [place] [address] PCP - General 02/03/06 06/16/09 Oscar Torres [address] [place] [address] PCP - General 01/17/1992 02/02/06 Hope Gann MD [address] [place] [address] PCP - General Internal Medicine 07/06/11 10/15/11 Leonardo Gurrola MD [address] [place] [address] PCP - General Internal Medicine 10/16/11 03/10/22 Tracee Diaz MD [address] [place] [address] PCP - General Internal Medicine 03/11/22 documented as of this encounter
--- OUTSIDE RECORDS SUMMARY | 2025-06-08 13:33 | XMS_ITS | Encounter Summary ---
Author Organization [facility] Address [address] [place] [address] Care Team Providers Care Terrazzo Journeyman Name Role Phone Leonardo Gurrola MD Primary Care Provider Tracee Penaloza MD Primary Care Prov ider Encounter Details Date Type Department Care Team Description 11/29/2017 [facility] Medical Records [address] [place] [address] Abstract, Provider Social History Tobacco Use Types Packs/Day Years [...] on filedocumented in this encounter Care Teams Terrazzo Journeyman Relationship Specialty Start Date End Date Leonardo Gurrola MD PCP - General Internal Medicine 10/16/11 03/10/22 Tracee Diaz MD [address] [place] [address] PCP - General Internal Medicine 03/11/22 documented as of this encounter
--- OUTSIDE RECORDS SUMMARY | 2025-06-08 13:33 | XMS_ITS | Encounter Summary ---
Author Organization [facility] Address [address] [facility] [place] [address] Care Team Providers Care Residential Roofer Name Role Phone Tracee Diaz MD Primary Care Prov ider Encounter Details Date Type Department Care Team Description 02/24/2023 SCAN Medical Records [address] [place] [address] [facility] Social History Tobacco Use Types Packs/Day Years [...] suspected to have Coronavirus/COVID-19? No / Unsure 02/24/2023 12:51 PM EDT documented as of this encounter Plan of Treatment Not on file documented as of this encounter Visit Diagnoses Not on filedocumented in this encounter Care Teams Residential Roofer Relationship Specialty Start Date End Date Tracee Diaz MD [address] [place], [place] [phone] PCP - General Internal Medicine 03/11/22 documented as of this encounter
--- OUTSIDE RECORDS SUMMARY | 2025-06-08 13:33 | XMS_ITS | Encounter Summary ---
Author Organization [facility] Address [address] [place] [address] Care Team Providers Care Scientologist Name Role Phone Leonardo Gurrola MD Primary Care Provider Tracee Penaloza MD Primary Care Prov ider Reason for Visit * Reason Onset Date Comments Annual Wellness Outreach 05/12/2021 Encounter Details Date Type Department Care Team Description 05/12/2021 Telephone Adult Medicine [address] [address] Ravi Lazo DO Annual Wellness Outreach Social [...] on filedocumented in this encounter Care Teams Scientologist Relationship Specialty Start Date End Date Leonardo Gurrola MD PCP - General Internal Medicine 10/16/11 03/10/22 Tracee Diaz MD [address] [place] [address] PCP - General Internal Medicine 03/11/22 documented as of this encounter
--- OUTSIDE RECORDS SUMMARY | 2025-06-08 13:33 | XMS_ITS | Encounter Summary ---
Author Organization [facility] Address [address] [facility] [place] [address] Care Team Providers Care Boss Miner Name Role Phone Leonardo Gurrola MD Primary Care Provider Tracee Penaloza MD Primary Care Prov ider Encounter Details Date Type Department Care Team Description 12/01/2018 [facility] Tre [address] [place] [address] Md Tre Social History Tobacco Use Types Packs/Day Years [...] encounter Miscellaneous Notes * Telephone Encounter - Leonardo Gurrola - 12/02/2018 11:29 AM EDT Please find out if she is seeing urology, if not I will refer and she can discuss med. She has not been on this med per my record for many months. * Telephone Encounter - Eugenie Casas M.A. - 12/01/2018 3:32 PM EDT Last office visit 11/10/18 Next office visit 01/27/19 Dr Gurrola, We have never given this to the pt and the Oxybutynin has not been prescribed since 12/21/17 90 day with 1 refill. Pt was referred to urology back on 07/16/14. please review and advise * Telephone Encounter - Eugenie Casas M.A. - 12/01/2018 3:31 PM EDTFrom: Margie Giang Sent: 12/01/2018 3:19 PM EDT Subject: Request Refill Not On Medication List Request submitted by Margie Giang on 12/01/2018 at 3:18:42 PM Form Title: Request Refill Not On Medication List Submitted Data From: Margie Giang Primary care provider: Leonardo Gurrola MD --- Contact Information --- Contact Phone #: [phone] --- Medication Request Information --- Medication name: Vesicare Dosage: unsure instructions: 1 tab a day # Dispensed: 90 Ordering Provider: Dr. Gurrola Pharmacy: [address] [id number] Other Details: I am requesting a change from Oxybutynin ER 15 mg. It is causing dry mouth . Thank you documented in this encounter Plan of Treatment Not on file documented as of this encounter Visit Diagnoses Not on filedocumented in this encounter Care Teams Boss Miner Relationship Specialty Start Date End Date Leonardo Gurrola MD PCP - General Internal Medicine 10/16/11 03/10/22 Tracee Diaz MD [address] [place] [address] PCP - General Internal Medicine 03/11/22 documented as of this encounter
--- OUTSIDE RECORDS SUMMARY | 2025-06-08 13:33 | XMS_ITS | Encounter Summary ---
Author Organization [facility] Address [address] [place] [address] Care Team Providers Care Orchardist Name Role Phone Tracee Chavez MD Primary Care Prov ider Reason for Referral * Consultation (Routine) - Pending Review Specialty Diagnoses / Procedures Referred By Contelizabeth t Referred To Contact Nephrology Diagnoses Stage 3a chronic kidney disease (CMS/HCC V24, CMS/HCC V28) Traece Chavez MD [address] [place] [address] Phone: tel: fax: Nephrology [address] Phone: tel: fax: Referral ID Status Reason Start Date Expiration Date Visits Requested Visits Authorized [id number] Pending Review Specialty Services Required 05/18/2026 1 1 Encounter Details Date Type Department Care Team (Late st Contact Info) Description 05/18/2025 Results Follow-Up Adult Medicine [address] [phone] Tracee Chavez MD [address] [place] [address] Social History Tobacco Use Types Packs/Day Years [...] your loved ones. For example, child care specialist or elderly care for an older [...] Care Team (Late st Contact Info) Description 08/10/2025 9:20 AM EST Office Visit [facility] [address] [facility] 101 [place] [address] Federico Jackson MD [address] [place] [address] [facility] [address] [place] [address] 09/03/2025 1:00 PM EST Office Visit Adult Medicine [facility] [address] [place] [address] Tracee Chavez MD [address] [place] [address] 01/25/2026 11:00 AM EDT Consult Gastroenterology - [address] [phone] Fela Clemens NP [address] [address] Scheduled Referrals Name Type Priority Associated Diagnoses Order Schedule Ambulatory referral to Nephrology Outpatient Referral Routine Stage 3a chronic kidney disease (CMS/HCC V24, CMS/HCC V28) 1 Occurrences starting 05/18/2025 until 05/18/2026 documented as of this encounter Visit Diagnoses Diagnosis Stage 3a chronic kidney disease (CMS/HCC V24, CMS/HCC V28)- Primary documented in this encounter Additional Health Concerns Assessment Noted Time PHQ-9 Depression Total Score: 2 10/13/19 25 11:12 AM EDT documented as of this encounter Care Teams Orchardist Relationship Specialty Start Date End Date Tracee Chavez MD [address] [place] [phone] PCP - General Internal Medicine 03/11/22 documented as of this encounter
--- OUTSIDE RECORDS SUMMARY | 2025-06-08 13:33 | XMS_ITS | Encounter Summary ---
Author Organization [facility] Address [address] [facility] [place] [address] Care Team Providers Care Sound Engineer Name Role Phone Leonardo Gurrola MD Primary Care Provider Tracee Penaloza MD Primary Care Prov ider Encounter Details Date Type Department Care Team Description 12/10/2017 Release of Information Medical Records [address] [place] [address] Abstract, Provider Social History Tobacco Use Types [...] on filedocumented in this encounter Care Teams Sound Engineer Relationship Specialty Start Date End Date Leonardo Gurrola MD PCP - General Internal Medicine 10/16/11 03/10/22 Tracee Diaz MD [address] [place] [address] PCP - General Internal Medicine 03/11/22 documented as of this encounter
--- OUTSIDE RECORDS SUMMARY | 2025-06-08 13:33 | XMS_ITS | Encounter Summary ---
Author Organization [facility] Address [address] [place] [address] Care Team Providers Care Maintenance Team Leader Name Role Phone Leonardo Gurrola MD Primary Care Provider Tracee Penaloza MD Primary Care Prov ider Reason for Visit * Reason Comments E-prescribe Rx Request Encounter Details Date Type Department Care Team Description 04/08/2021 Refill Adult Medicine [facility] [address] [place] [address] Sindy Lozano PA [address] [place] [address] E-prescribe Rx Request Social History Tobacco Use [...] encounter Miscellaneous Notes * Telephone Encounter - Eugenie Casas M.A. - 04/09/2021 2:00 PM EDT Last office visit 05/21/20 Next office visit 04/22/21 with PCP Lab Results Component Value Date NA 139 01/12/2020 K 3.5 01/12/2020 CO2 26 01/12/2020 CL 103 01/12/2020 BUN 18 01/12/2020 CREAT 1.36 01/12/2020 GLU 103 01/12/2020 CA 9.4 01/12/2020 GFR 39 01/12/2020 * Telephone Encounter - Maxx Martin - 04/09/2021 1:20 PM EDT Patient would like script to be: E-PRESCRIBED/FAXED TO PHARMACY WHEN WAS THE PATIENT'S LAST APPOINTMENT IN ADULT MEDICINE? 05/21/2020 WHEN WAS THE LAST TIME THE PATIENT SAW THEIR PCP? 10/12/2019 Does patient have an upcoming appointment? Yes 04/22/2021 (THE MEDICATION REQUESTED IS ON THE MED LIST ABOVE) All of the medications requested were on the CURRENT MEDS list Did you check the Pharmacy information above?: YES Patient wants: 30 -day supply Is this a mail order prescription request ? NO If the refill is from a FAXED refill request what is the RX # listed on the fax? N/A Patients current insurance carrier is: Payor: [facility] FFS / Plan: HNE MEDICARE PREMIUM $10 [place] / Product Type: MEDICARE [id number] documented in this encounter Plan of Treatment Not on file documented as of this encounter Visit Diagnoses Not on filedocumented in this encounter Care Teams Maintenance Team Leader Relationship Specialty Start Date End Date Leonardo Gurrola MD PCP - General Internal Medicine 10/16/11 03/10/22 Kanika Cleaning, Tracee Sharma MD [address] [place] [address] PCP - General Internal Medicine 03/11/22 documented as of this encounter
--- OUTSIDE RECORDS SUMMARY | 2025-06-08 13:34 | XMS_ITS | Encounter Summary ---
Author Organization [facility] Address [address] [place] [address] Care Team Providers Care Manager Solution Name Role Phone Tracee Chavez MD Primary Care Prov ider Encounter Details Date Type Department Care Team (Late st Contact Info) Description 01/05/2025 Lab Requisition [facility] [address] [facility] [place] [phone] Ariela Saunders MD [address] [facility] [address] [place] [address] Other abnormal findings in urine Social History [...] for your loved ones. For example, child life therapist or elderly care for an older adult? [...] Description 08/10/2025 9:20 AM EST Office Visit [facility] [address] [facility] [address] [place] [address] Federico Jackson MD [address] [place] [address] Dr Deutsch [address] [place] [phone] 09/03/2025 1:00 PM EST Office Visit Adult Medicine [facility] [address] [place], [place] [phone] Tracee Chavez MD [address] [place], [place] 01/25/2026 11:00 AM EDT Consult Gastroenterology - [address] [address] [phone] Fela Clemens NP [address] [address] documented as of this encounter Procedures Procedure Name Priority Date/Time Associated Diagnosis Comments CULTURE URINE Routine 01/05/2025 10:20 AM EDT Other abnormal findings in urine documented in this encounter Results * (ABNORMAL) Culture urine (01/05/2025 10:20 AM EDT) Culture, Urine >100,000 CFU/mL Escherichia coli(A) GIDEON 01/07/2025 8:00 AM EDT [facility] Urine Urine specimen from urethra [...] MICROBIOLOGY - G ENERAL ORDERABLES Final Result [facility] [address] [place] [address], documented in this encounter Visit Diagnoses Diagnosis Other abnormal findings in urine documented in this encounter Additional Health Concerns Assessment Noted Time PHQ-9 Depression Total Score: 2 10/13/19 25 11:12 AM EDT documented as of this encounter Care Teams Manager Solution Relationship Specialty Start Date End Date Tracee Chavez MD [address] [place] [phone] PCP - General Internal Medicine 03/11/22 documented as of this encounter
--- OUTSIDE RECORDS SUMMARY | 2025-06-08 13:34 | XMS_ITS | Encounter Summary ---
Author Organization [facility] Address [address] [place] [address] Care Team Providers Care Clinic Physician Name Role Phone Tracee Diaz MD Primary Care Prov ider Encounter Details Date Type Department Care Team Description 09/06/2023 Pt. Non Urgent Medical Question Adult Medicine [address] [address] Hattie Francis PA-C [address] [place] [address] Social History Tobacco Use Types Packs/Day Years [...] encounter Miscellaneous Notes * Telephone Encounter - Kelin Lou L.P.N. - 09/06/2023 11:38 AM ESTFrom: Margie Giang To: Sandy Francis Sent: 09/06/2023 11:26 AM EST Subject: refill script my pharmacy has been attempting to reach you in regards to the script for pantoprazole 20 mg. I have only 1 pill left. please refill this script today. Thank you documented in this encounter Plan of Treatment Not on file documented as of this encounter Visit Diagnoses Not on filedocumented in this encounter Care Teams Clinic Physician Relationship Specialty Start Date End Date Tracee Diaz MD [address] [place] [address] PCP - General Internal Medicine 03/11/22 documented as of this encounter
--- OUTSIDE RECORDS SUMMARY | 2025-06-08 13:34 | XMS_ITS | Encounter Summary ---
Author Organization [facility] Address [address] [place] [address] Care Team Providers Care Elementary Reading Specialist Name Role Phone Tracee Diaz MD Primary Care Prov ider Encounter Details Date Type Department Care Team Description 05/21/2023 Orders Only Medical Records [address] [place] [address] Buster Villatoro MD [address] [place] [address] [address] [place] [address] Social History Tobacco Use Types Packs/Day Years [...] Procedure Name Priority Date/Time Associated Diagnosis Comments OUTSIDE EKG Routine 05/20/2023 documented in this encounter Results * OUTSIDE EKG (05/20/2023) Buster Villatoro MD CARDIOLOGY documented in this encounter Visit Diagnoses Not on filedocumented in this encounter Care Teams Elementary Reading Specialist Relationship Specialty Start Date End Date Tracee Diaz MD [address] [place] [address] PCP - General Internal Medicine 03/11/22 documented as of this encounter
--- OUTSIDE RECORDS SUMMARY | 2025-06-08 13:34 | XMS_ITS | Encounter Summary ---
Author Organization [facility] Address [address] [place] [address] Care Team Providers Care Wirer Maintenance Name Role Phone Leonardo Gurrola MD Primary Care Provider Tracee Penaloza MD Primary Care Prov ider Encounter Details Date Type Department Care Team Description 01/09/2015 Broom Bundler Report Medical Records [address] [place] [address] Elisa Reyna PA-C Social History Tobacco Use [...] on filedocumented in this encounter Care Teams Wirer Maintenance Relationship Specialty Start Date End Date Leonardo Gurrola MD PCP - General Internal Medicine 10/16/11 03/10/22 Tracee Diaz MD [address], [place] [phone] PCP - General Internal Medicine 03/11/22 documented as of this encounter
--- OUTSIDE RECORDS SUMMARY | 2025-06-08 13:34 | XMS_ITS | Encounter Summary ---
Author Organization [facility] Address [address] [place] [address] Care Team Providers Care Sash Repairer Name Role Phone Hope Gann MD Primary Care Provider Leonardo Gasca MD Primary Care Provider Tracee Penaloza MD Primary Care Prov ider Reason for Visit * Reason Onset Date Comments Provider Call Back 07/06/2011 Encounter Details Date Type Department Care Team Description 07/06/2011 Telephone Physiatry - [address] [address] German Chin DO Provider Call Back Social History Tobacco Use Types Packs/Day Years Used Date Smoking Tobacco: Never Smokeless Tobacco: Never Alcohol Use Standard Drinks/Week Comments No 0 (1 standard drink = 0.6 oz pur e alcohol) Sex Assigned at Date Recorded Not on file Job Start Date Occupation Industry Not on file Not on file Not on file documented as of this encounter Miscellaneous Notes * Telephone Encounter - Aleisha hKan L.P.N. - 07/06/2011 4:29 PM EST Spoke to gail she will wait too have mri of her shoulder told her valium was sent to pharmacy for neck mri. * Telephone Encounter - German Chin - 07/06/2011 4:12 PM EST I could order shoulder MRI, but she just had an injection and I would want her to wait at least twoweeks before doing it. * Telephone Encounter - Aleisha Khan L.P.N. - 07/06/2011 3:50 PM EST Request was sent to dr chin for shoulder mri And sedative prior to mri. * Telephone Encounter - Sherry Lopez - 07/06/2011 12:30 PM EST Patient would like to discuss the mri with Dr. Chin. She would like the shoulder done also. She also would like a tranquilizer for when she gets the mri. Please call her cell number. documented in this encounter Plan of Treatment Not on file documented as of this encounter Visit Diagnoses Not on filedocumented in this encounter Care Teams Sash Repairer Relationship Specialty Start Date End Date Hope Gann MD PCP - General Internal Medicine 07/06/11 10/15/11 Leonardo Gurrola MD PCP - General Internal Medicine 10/16/11 03/10/22 Tracee Diaz MD [address] [place] [address] PCP - General Internal Medicine 03/11/22 documented as of this encounter
--- OUTSIDE RECORDS SUMMARY | 2025-06-08 13:34 | XMS_ITS | Encounter Summary ---
Author Organization [facility] Address [address] [facility] [place] [address] Care Team Providers Care Art Historian Name Role Phone Leonardo Gurrola MD Primary Care Provider Tracee Penaloza MD Primary Care Prov ider Encounter Details Date Type Department Care Team Description 03/29/2020 Geothermal Operations Manager Report Medical Records [address] [place] [address] Ruthy Nguyen NP Social History Tobacco Use Types Packs/Day Years [...] on filedocumented in this encounter Care Teams Art Historian Relationship Specialty Start Date End Date Leonardo Gurrola MD PCP - General Internal Medicine 10/16/11 03/10/22 Tracee Diaz MD [address] [place] [address] PCP - General Internal Medicine 03/11/22 documented as of this encounter
--- OUTSIDE RECORDS SUMMARY | 2025-06-08 13:34 | XMS_ITS | Encounter Summary ---
Author Organization [facility] Address [address] [place] [address] Care Team Providers Care Dealer Relationship Manager Name Role Phone Tracee Diaz MD Primary Care Prov ider Encounter Details Date Type Department Care Team Description 05/25/2023 Hospital Medical Records [address] [place] [address] Buster Villatoro MD [address] [facility] [address] [place] [address] Social History Tobacco Use Types Packs/Day Years [...] on filedocumented in this encounter Care Teams Dealer Relationship Manager Relationship Specialty Start Date End Date Tracee Diaz MD [address] [place] [address] PCP - General Internal Medicine 03/11/22 documented as of this encounter
--- OUTSIDE RECORDS SUMMARY | 2025-06-08 13:34 | XMS_ITS | Encounter Summary ---
Author Organization [facility] Address [address] [place] [address] Care Team Providers Care Yard General Car Supervisor Name Role Phone Leonardo Gurrola MD Primary Care Provider Tracee Penaloza MD Primary Care Prov ider Reason for Visit * Reason Onset Date Comments Mychart Rx Refill 01/18/2020 Encounter Details Date Type Department Care Team Description 01/18/2020 Pt. Non Urgent Medic al Question Adult Medicine [address] [address] Leonardo Gurrola MD Social History Tobacco Use Types Packs/Day [...] encounter Miscellaneous Notes * Telephone Encounter - Sherry Pandya M.A. - 01/18/2020 11:15 AM EDTFrom: Margie Giang To: Leonardo Gurrola MD Sent: 01/18/2020 11:10 AM EDT Subject: script refill please send scipt for hydrochlorothiazide to [facility] [address] [place] [address]. Thank you. documented in this encounter Plan of Treatment Not on file documented as of this encounter Visit Diagnoses Not on filedocumented in this encounter Care Teams Yard General Car Supervisor Relationship Specialty Start Date End Date Leonardo Gurrola MD PCP - General Internal Medicine 10/16/11 03/10/22 Tracee Diaz MD [address] [place] [address] PCP - General Internal Medicine 03/11/22 documented as of this encounter
--- OUTSIDE RECORDS SUMMARY | 2025-06-08 13:34 | XMS_ITS | Encounter Summary ---
Author Organization [facility] Address [address] [place] [address] Care Team Providers Care Tube Cutter Operator Name Role Phone Tracee Diaz MD Primary Care Prov ider Encounter Details Date Type Department Care Team Description 2023 Orders Only Medical Records [address] [place] [address] Buster Villatoro MD [address] [place] [address] [address] [place] [address] Social History Tobacco Use Types Packs/Day Years [...] Name Priority Date/Time Associated Diagnosis Comments OUTSIDE PATHOLOGY Routine 05/25/2023 documented in this encounter Results * OUTSIDE PATHOLOGY (05/25/2023) Buster Villatoro MD OUTSIDE LAB documented in this encounter Visit Diagnoses Not on filedocumented in this encounter Care Teams Tube Cutter Operator Relationship Specialty Start Date End Date Tracee Diaz MD [address] [place] [address] PCP - General Internal Medicine 03/11/22 documented as of this encounter
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
--- OUTSIDE RECORDS SUMMARY | 2025-06-08 13:34 | XMS_ITS | Encounter Summary ---
Author Organization [facility] Address [address] [place] [address] Care Team Providers Care Finger Lift Operator Name Role Phone Jessica Bardales MD Primary Care Provider [phone] Arjun Casiano MD Primary Care Provider [phone] Oscar Torres Primary Care Provider [phone] Hope Gann MD Primary Care Provider Leonardo Gasca MD Primary Care Provider Tracee Penaloza MD Primary Care Prov ider Encounter Details Date Type Department Care Team Description 01/24/2005 Orders Only Medical [address] [place], [place] [phone] Oscar Torres [address] [place], [place] [phone] THYROTOXICOSIS WITHOUT MENTION OF GOITER OR OTHER CAUSE, 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 OF THYROTOXIC CRISIS OR STORM; ABNORMAL WEIGHT GAIN Social History Tobacco Use Types Packs/Day Years Used Date Smoking Tobacco: Never Assessed Sex Assigned at Date Recorded Not on file Job Start Date Occupation Industry Not on file Not on file Not on file documented as of this encounter Plan of Treatment Scheduled Orders Name Type Priority Associated Diagnoses Orde r Schedule VENIPUNCTURE Lab Routine Thyrotoxicosis Without Mention Of Goiter Or Other Cause, And Without Mention Of Thyrotoxic Crisis Or Storm Abnormal Weight Gain Ordered: 01/24/2005 documented as of this encounter Procedures Procedure Name Priority Date/Time Associated Diagnosis Comments TSH Routine 01/24/2005 11:15 AM EDT Thyrotoxicosis Without Mention Of Goiter Or Other Cause, And Without Mention Of Thyrotoxic Crisis Or Storm Abnormal Weight Gain CHG TRANSFERASE ALANINE AMINO ALT SGPT Routine 01/24/2005 11:15 AM EDT Thyrotoxicosis Without Mention Of Goiter Or Other Cause, And Without Mention Of Thyrotoxic Crisis Or Storm Abnormal Weight Gain CHG TRANSFERASE ASPARTATE AMINO AST SGOT Routine 01/24/2005 11:15 AM EDT Thyrotoxicosis Without Mention Of Goiter Or Other Cause, And Without Mention Of Thyrotoxic Crisis Or Storm Abnormal Weight Gain CHG LIPID PANEL Routine 01/24/2005 11:15 AM EDT Thyrotoxicosis Without Mention Of Goiter Or Other Cause, And Without Mention Of Thyrotoxic Crisis Or Storm Abnormal Weight Gain documented in this encounter Results * TSH (01/24/2005 11:15 AM EDT) TSH 2.13 0.40 - 4.00 uIU/ml [facility] [employer] 01/24/2005 11:1 5 AM EDT 01/24/2005 11:17 AM EDT Oscar Torres LAB [facility] [employer] * TRANSAMINASE (SGPT)(ALT) UV- (01/24/2005 11:15 AM EDT) ALT (SGPT) 24 10 - 60 U/L [facility] [employer] 01/24/2005 11:1 5 AM EDT 01/24/2005 11:17 AM EDT Oscar Torres LAB [facility] [employer] * TRANSAMINASE (SGOT)(AST) UV- (01/24/2005 11:15 AM EDT) AST (SGOT) 24 10 - 42 U/L [facility] [employer] 01/24/2005 11:1 5 AM EDT 01/24/2005 11:17 AM EDT Oscar Torres LAB [facility] * LIPID PROFILE (01/24/2005 11:15 AM EDT) Cholesterol 176 0 - 200 mg/dL [facility] TRIGLYCERIDES 140 0 - 150 mg/dL [facility] HDL CHOLESTEROL 51 >40 mg/dL [facility] LDL CALCULATED 97 0 - 100 mg/dL [facility] TC-HDLC RATIO 3.5 0 - 4.4 mg/dL [facility] 01/24/2005 11:1 5 AM EDT 01/24/2005 11:17 AM EDT Oscar Torres LAB Performing Organization Address City/[facility]/ZIP Co de Phone Number [facility] documented in this encounter Visit Diagnoses Diagnosis Thyrotoxicosis without mention of goiter or other cause, without mention of thyrotoxic crisis or storm Abnormal weight gain documented in this encounter Care Teams Finger Lift Operator Relationship Specialty Start Date End Date Jessica Bardales MD [address] [place] [address] PCP - General 06/17/09 07/05/11 Arjun Casiano MD [address] [place] [address] PCP - General 02/03/06 06/16/09 Oscar Torres [address] [place] [address] PCP - General 01/17/1992 02/02/06 Hope Gann MD [address] [place] [address] PCP - General Internal Medicine 07/06/11 10/15/11 Leonardo Gurrola MD [address] [place] [address] PCP - General Internal Medicine 10/16/11 03/10/22 Tracee Diaz MD [address] [place] [address] PCP - General Internal Medicine 03/11/22 documented as of this encounter
--- OUTSIDE RECORDS SUMMARY | 2025-06-08 13:34 | XMS_ITS | Encounter Summary ---
Author Organization [facility] Address [address] [place] [address] Care Team Providers Care Grain I Farmworker Name Role Phone Leonardo Gurrola MD Primary Care Provider Tracee Penaloza MD Primary Care Prov ider Reason for Visit * Reason Onset Date Comments Faxed Order 11/07/2014 Encounter Details Date Type Department Care Team Description 11/07/2014 Telephone Adult Medicine [address] [address] Leonardo Gurrola MD Faxed Order Social History Tobacco Use Types Packs/Day Years [...] encounter Miscellaneous Notes * Telephone Encounter - Jayda Walsh - 11/07/2014 11:52 AM EDT Plan of care for Dr Gurrola's signature documented in this encounter Plan of Treatment Not on file documented as of this encounter Visit Diagnoses Not on filedocumented in this encounter Care Teams Grain I Farmworker Relationship Specialty Start Date End Date Leonardo Gurrola MD PCP - General Internal Medicine 10/16/11 03/10/22 Tracee Diaz MD [address] [place] [address] PCP - General Internal Medicine 03/11/22 documented as of this encounter
--- OUTSIDE RECORDS SUMMARY | 2025-06-08 13:34 | XMS_ITS | Encounter Summary ---
Author Organization [facility] Address [address] [place] [address] Care Team Providers Care Candy Puller Name Role Phone Jessica Bardales MD Primary Care Provider [phone] Arjun Casiano MD Primary Care Provider [phone] Oscar Torres Primary Care Provider [phone] Hope Gann MD Primary Care Provider Leonardo Gasca MD Primary Care Provider Tracee Penaloza MD Primary Care Prov ider Encounter Details Date Type Department Care Team Description 03/06/2003 [facility] [address] [phone] Vargas Cornejo MD Social History Tobacco Use [...] on filedocumented in this encounter Care Teams Candy Puller Relationship Specialty Start Date End Date Jessica Bardales MD [address] [place] [phone] PCP - General 06/17/09 07/05/11 Arjun Casiano MD [address] [place] [phone] PCP - General 02/03/06 06/16/09 Oscar Torres [address] [place] [address] PCP - General 01/17/1992 02/02/06 Hope Gann MD [address] [place] [address] PCP - General Internal Medicine 07/06/11 10/15/11 Leonardo Gurrola MD [address] [place] [address] PCP - General Internal Medicine 10/16/11 03/10/22 Tracee Diaz MD [address] [place] [address] PCP - General Internal Medicine 03/11/22 documented as of this encounter
--- OUTSIDE RECORDS SUMMARY | 2025-06-08 13:34 | XMS_ITS | Encounter Summary ---
Author Organization [facility] Address [address] [place] [address] Care Team Providers Care Boat Detailer Name Role Phone Jessica Bardales MD Primary Care Provider [phone] Arjun Casiano MD Primary Care Provider [phone] Oscar Torres Primary Care Provider Hope Gann MD Primary Care Provider Leonardo Gasca MD Primary Care Provider Tracee Penaloza MD Primary Care Prov ider Reason for Visit * Reason Comments refill request FAX Encounter Details Date Type Department Care Team Description 11/27/2002 Telephone Adult Medicine [address] [address] Vargas Cornejo MD refill request (FAX) Social History Tobacco Use Types Packs/Day Years Used Date Smoking Tobacco: Never Assessed Sex Assigned at Date Recorded Not on file Job Start Date Occupation Industry Not on file Not on file Not on file documented as of this encounter Miscellaneous Notes * Telephone Encounter - 11/27/2002 8:58 AM EDTCALL RECEIVED. Contact: SHAZIA CURRY FAX FROM [facility] ([facility]) documented in this encounter Plan of Treatment Not on file documented as of this encounter Visit Diagnoses Not on filedocumented in this encounter Care Teams Boat Detailer Relationship Specialty Start Date End Date Jessica Bardales MD [address] [place] [address] PCP - General 06/17/09 07/05/11 Arjun Casiano MD [address] [place] [address] PCP - General 02/03/06 06/16/09 Oscar Torres [address] [place] [address] PCP - General 01/17/1992 02/02/06 Hope Gann MD [address] [place] [address] PCP - General Internal Medicine 07/06/11 10/15/11 Leonardo Gurrola MD [address] [place] [address] PCP - General Internal Medicine 10/16/11 03/10/22 Tracee Diaz MD [address] [place] [address] PCP - General Internal Medicine 03/11/22 documented as of this encounter
--- OUTSIDE RECORDS SUMMARY | 2025-06-08 13:34 | XMS_ITS | Encounter Summary ---
Author Organization [facility] Address [address] [place] [address] Care Team Providers Care User Interface Engineer Name Role Phone Jessica Bardales MD Primary Care Provider [phone] Hope Gann MD Primary Care Provider Leonardo Gasca MD Primary Care Provider Tracee Penaloza MD Primary Care Prov ider Reason for Visit * Reason Onset Date Comments E-prescribe Rx Request 03/11/2011 Encounter Details Date Type Department Care Team Description 03/11/2011 Refill Adult Medicine [address] [address] Sarah Valero PA-C [address] [place] [phone] E-prescribe Rx Request Social History Tobacco Use [...] encounter Miscellaneous Notes * Telephone Encounter - Hattie Burrell - 03/12/2011 9:42 AM EDT Message left for patient to call back to book follow up. * Telephone Encounter - Thad Allen - 03/12/2011 8:49 AM EDT appt needed * Telephone Encounter - Blayne Booker - 03/11/2011 10:44 PM EDT WHEN WAS THE PATIENT'S LAST APPOINTMENT IN ADULT MEDICINE? 07/04/10 WHEN WAS THE LAST TIME THE PATIENT SAW THEIR PCP? 03/06/10 Does patient have an upcoming appointment? No (THE MEDICATION REQUESTED IS ON THE MED LIST ABOVE) All of the medications requested were on the CURRENT MEDS list Did you check the Pharmacy information above?: YES Is this a mail order prescription request? NO Indicate how soon the patient needs the script: BY THE END OF THE DAY Patient would like script to be: FAXED TO PHARMACY Is the doctor here today?: YES Can the message wait until the doctor returns?: NO Patients current insurance carrier is: Payor: [facility] [employer] Plan: [employer] $20 [place] 1 Product Type: HMO [id number] documented in this encounter Plan of Treatment Not on file documented as of this encounter Visit Diagnoses Not on filedocumented in this encounter Care Teams User Interface Engineer Relationship Specialty Start Date End Date Jessica Bardales MD [address] [place], [place] [phone] PCP - General 06/17/09 07/05/11 Hope Gann MD [address] [place] [phone] PCP - General Internal Medicine 07/06/11 10/15/11 Leonardo Gurrola MD [address] [place] [address] PCP - General Internal Medicine 10/16/11 03/10/22 Tracee Diaz MD [address] [place] [address] PCP - General Internal Medicine 03/11/22 documented as of this encounter
--- OUTSIDE RECORDS SUMMARY | 2025-06-08 13:34 | XMS_ITS | Encounter Summary ---
Author Organization [facility] Address [address] [place] [address] Care Team Providers Care Material Handler 2Nd Shift Name Role Phone Leonardo Gurrola MD Primary Care Provider Tracee Penaloza MD Primary Care Prov ider Encounter Details Date Type Department Care Team Description 10/09/2015 Pt. Non Urgent Medic al Question Adult Medicine [address] [address] Leonardo Gurrola MD Social History Tobacco Use [...] as of this encounter Progress Notes * Aleisha Sequeira M.A. - 10/09/2015 4:26 PM EDTFrom: Margie Giang To: Leonardo Gurrola MD Sent: 10/09/2015 4:19 PM EDT Subject: fax records Please fax my records from appts. with Dr. Khanh Isaacs to [facility]. I have an appt. there on 10/18/15. fax # is [phone] to the attention of Hattie Oswald. Thank you. Margie Giang documented in this encounter Plan of Treatment Not on file documented as of this encounter Visit Diagnoses Not on filedocumented in this encounter Care Teams Material Handler 2Nd Shift Relationship Specialty Start Date End Date Leonardo Gurrola MD PCP - General Internal Medicine 10/16/11 03/10/22 Tracee Diaz MD [address] [place] [address] PCP - General Internal Medicine 03/11/22 documented as of this encounter
--- OUTSIDE RECORDS SUMMARY | 2025-06-08 13:34 | XMS_ITS | Clinical Summary ---
Author Organization [facility] Address [address] [place] [phone] Phone Care Team Providers Care Program Writer Name Role Phone Tracee Chavez MD Primary [...] 1 (one) time each day. 3 Active pantoprazole (PROTONIX) 20 mg EC tablet Take 1 tablet (20 mg total) by mouth 1 (one) time each day. 90 each 3 5 10/13/19 26 Active EPINEPHrine (EpiPen 2-David) 0.3 mg/0.3 mL injection Inject 0.3 mL as directed as needed (anaphylaxis) . 1 each 1 5 Active traZODone (DESYREL) 100 mg tablet TAKE 1 TABLET BY MOUTH AT BEDTIME NEEDED FOR SLEEP 90 tablet 1 5 Active amLODIPine (NORVASC) 10 mg tablet Take 1 tablet (10 mg total) by mouth 1 (one) time each day. 30 each 2 5 07/16/20 25 Active FLUoxetine (PROzac) 40 mg capsule Take 2 capsules (80 mg total) by mouth 1 (one) time each day. 180 capsule 10/31/202 5 Active FLUoxetine (PROzac) 40 mg capsule TAKE 2 CAPSULES BY MOUTH DAILY 180 capsule 5 05/18/20 25 Discontinu ed(Reorder ) Active Problems Problem Noted Date Diagnosed Date Common bile duct dilation 11/30/2024 Fibromyalgia 06/28/2024 Overview (06/28/2024): Dr. Horta - [facility] Primary insomnia 04/13/2024 Hepatic steatosis [...] sparing. Small amount of gallbladder sludge. POS [id number] Mild episode of recurrent ma nedra depressive disorder (CMS/HCC V24) 05/11/2019 Assessment & Plan (04/17/2025 11:10 [...] ml/min ([facility] V24, [facility] V28) 08/10/2014 Assessment & Plan [...] no high grade arrythmia Coronary atherosclerosis of [place] coronary vess el 02/08/2006 Overview (06/28/2024): s/p stent 1999, RCA ECHO 2005: IMPRESSION: Normal left ventricular systolic function without specific wall motion abnormalities. Trace mitral regurgitation. Assessment & Plan (10/12/2024 12:00 PM EDT): Orders: Comprehensive metabolic panel; Future Lipid panel with reflex to direct LDL; Future Encounters Date Type Department Care Team Description 05/18/2025 11:15 AM EDT Lab Draw [address] Elevated liver enzymes; Hepatic steatosis; Common bile duct dilation 05/18/2025 10:30 AM EDT Office Visit [address] [phone] Tracee Gordon MD Hospital discharge follow-up (Primary Dx); S/P laparoscopic cholecystectomy; Elevated liver enzymes; Hepatic steatosis; Mixed stress and urge urinary incontinence 05/18/2025 Results Follow-Up [address] [phone] Tracee Gordon MD 05/03/[address] [phone] Tracee Gordon MD 05/02/[address] [phone] Tracee Gordon MD 04/17/2025 11:00 AM EDT Office Visit [address] [phone] Tracee Gordon MD Primary hypertension (Primary Dx); Mixed hyperlipidemia; Mild episode of recurrent major depressive disorder (CMS/HCC V24) from Last 3 Months Immunizations Immunization Administration [...] W/O BSO BREAST SURGERY 2013 Bilateral PROCEDURE: [place] UNLISTED PROCEDURE BREAST; COMMENT: breast reduction BREAST BIOPSY Left PROCEDURE: BX BREAST; PERC NEEDLE CORE W/IMAG GUID; COMMENT: lt side, many yrs ago COLONOSCOPY 2013 PROCEDURE: HISTORICAL COLONOSCOPY; COMMENT: normal UPPER GASTROINTESTINAL ENDOSCOPY 2012 PROCEDURE: [place] UPPER GI ENDOSCOPY PERFORMED; COMMENT: no esophagitis on PPI treatment; 3 cm HH. COLONOSCOPY 2001 PROCEDURE: HISTORICAL COLONOSCOPY; COMMENT: negative UPPER GASTROINTESTINAL ENDOSCOPY 01/31/2018 PROCEDURE: [place] UPPER GI ENDOSCOPY PERFORMED; COMMENT: 3 cm HH; otherwise normal on PPI rx. BREAST BIOPSY Left PROCEDURE: BX BREAST; PERC NEEDLE CORE W/IMAG GUID; COMMENT: DENSE HYPOCELLULAR STROMAL FIBROSIS WITH FOCAL HEMOSIDERIN-LADEN BREAST LUMPECTOMY HYSTERECTOMY Medical History Medical History Date Comments Coronary atherosclerosis of unspecified type of vessel, [place] or graft 02/08/2006 DX:Coronary atherosclerosis of unspecified type of vessel, [place] or graft; COMMENT: s/p stent 2000, RCA [...] case Fibromyalgia DX:Fibromyalgia; COMMENT: Dr. Horta - [facility] Myofascial pain syndrome DX:Myof ascial pain syndrome; COMMENT: Dr. Horta - [facility] Vitamin D deficiency 01/25/2012 DX:Vitamin D deficiency Panic disorder 10/23/2014 DX:Panic disorde r Osteoporosis 01/13/2012 DX:Osteoporosis Hypertension 04/13/2006 DX:Hypertension Hyperlipidemia 08/24/2013 DX:Hyperlipidemi a Depression, major, recurrent , in remission ([facility]/HCC V24) 07/05/2014 DX:Depression, major, recurr ent, in remission (HCC) CKD (chronic kidney disease) stage 3, GFR 30-59 ml/min (CMS/HCC V24, [facility]/HCC V28) 08/10/2014 DX:CKD (chronic kidney disea se) stage 3, GFR 30-59 ml/min ([facility]) History of other specified c onditions presenting [...] for your loved ones. For example, childcare teacher or elderly care for an [...] Sign Reading Time Taken Comments Blood Pressure 135/70 05/18/2025 4:01 PM EDT Pulse 64 05/18/2025 10:21 AM EDT Temperature 36.8 C (98.2 F) 05/18/2025 10:21 AM EDT Respiratory Rate 14 05/18/2025 10:21 AM EDT Oxygen Saturation 97% 05/18/2025 10:21 AM EDT Inhaled Oxygen Concentration - - Weight 47.6 kg (105 lb) 05/18/2025 10:21 AM EDT Height 154.9 cm (5' 1 ) 05/18/2025 10:21 AM EDT Body Mass Index 19.84 05/18/2025 10:21 AM EDT Plan of Treatment Upcoming Encounters Date Type Department Care Team (Late st Contact Info) Description 08/10/2025 9:20 AM EST Office Visit [facility] [address] [facility] [address] [place] [phone] Federico Jackson MD [address] [place] [address] Dr [address] [place] [phone] 09/03/2025 1:00 PM EST Office Visit Adult Medicine [address] [phone] Tracee Chavez MD [address] [place] [address] 01/25/2026 11:00 AM EDT Consult Gastroenterology - [address] [facility] [address] [place] [phone] Fela Clemens NP 299 [facility] [address] [place] [address] Health Maintenance Due Date Last Done Comments Zoster Vaccines (1 of 2) 08/11/2012 06/16/2012 Osteoporosis Screening (Bone Density Screening) 02/22/2025 02/22/2023, 12/23/2016 COVID-19 Vaccine ( season) 2025 06/23/2021, 10/14/2020, 09/23/2020 Falls Risk Assessment 10/12/2025 10/12/2024 Medicare Annual Wellness Visit 10/12/2025 10/12/2024 Social Influencers of Health Screening 10/12/2025 10/12/2024 Influenza Vaccine (#1) 2026 , 06/03/2023, 06/02/2022, Additional history exists Postponed from 03/19/2025 (Patient Refused) Hypertension/CHF/CAD Annual BMP Blood Test 05/18/2026 05/18/2025, 11/30/2024, 09/15/2023 Breast Cancer Screening 03/01/2027 03/01/20 25, 02/28/2024, 02/28/2024, Additional history exists Colorectal Cancer [...] Procedure Name Priority Date/Time Associated Diagnosis Comments BILIRUBIN DUPLICATE PROCEDURE TO ORDER Routine 05/18/2025 11:29 AM EDT Common bile duct dilation COMPREHENSIVE METABOLIC PANEL Routine 05/18/2025 11:29 AM EDT Elevated liver enzymes Hepatic steatosis ECG Routine 04/21/2025 9:[address] ABDOMEN PELVIS W CONTRAST Routine 04/21/2025 9:29 AM EDT XR CHEST 1 VIEW Routine 04/21/2025 9:23 AM EDT US ABDOMEN LIMITED Routine 04/21/2025 9: 20 AM EDT US ABDOMEN LIMITED Routine 04/21/2025 9: [address] ABDOMEN PELVIS W CONTRAST Routine 04/20/2025 9:[address] REPORT Routine 04/20/2025 9: 07 AM EDT MG MAMMO DIGITAL SCREENING W BRIJESH BILAT Routine 03/01/2025 2:38 PM EDT Encounter for screening mammogram for breast cancer LIPID PANEL WITH REFLEX TO DIRECT LDL Routine 11/30/2024 10:26 AM EDT Tremor Stage 3a chronic kidney disease (CMS/HCC V24, CMS/HCC V28) Atherosclerosis of [place] coronary artery of [place] heart with stable angina pectoris (CMS/HCC V24) EXTERNAL COLOGUARD (FIT-DNA) REPORT 06/21/2024 DXA BONE DENSITY STUDY 1+ SITS AXIAL SKEL Routine 02/22/2023 2:57 PM EDT Asymptomatic menopausal state HM HEPATITIS C SCREENING Routine 04/04/2013 from Last 3 Months or Most Recently Relevant to Health Maintenance Results * Bilirubin duplicate procedure to order (05/18/2025 11:29 AM EDT) Total Bilirubin 0.6 0.0 - 1.4 mg/dL LAB CHEMISTRY METHOD 05/18/2025 3:28 PM EDT [facility] Bilirubin, Direct 0.1 0.0 - 0.3 mg/dL LAB CHEMISTRY METHOD 05/18/2025 3:28 PM EDT [facility] Bilirubin, Indirect 0.5 0.0 - 1.1 mg/dL LAB CHEMISTRY METHOD 05/18/2025 3:28 PM EDT [facility] Blood Venous blood specimen / Unknown Venipuncture / Unknown 05/18/2025 11:29 AM EDT 05/18/2025 11:29 AM EDT us Buster Villatoro MD LAB BLOOD ORDERABLES Final Resu lt [facility] [address] [place] [address], * (ABNORMAL) Comprehensive metabolic panel (05/18/2025 11:29 AM EDT) [facility] Sodium 139 133 - 145 mmol/L LAB CHEMISTRY METHOD 05/18/2025 3:28 PM EDT [facility] Potassium 3.8 3.5 - 5.5 mmol/L LAB CHEMISTRY METHOD 05/18/2025 3:28 PM EDT [facility] Chloride 105 96 - 110 mmol/L LAB CHEMISTRY METHOD 05/18/2025 3:28 PM EDT [facility] CO2 27 21 - 32 mmol/L LAB CHEMISTRY METHOD 05/18/2025 3:28 PM EDT [facility] Anion Gap 7 3 - 11 LAB CHEMISTRY METHOD 05/18/2025 3:28 PM EDT [facility] Glucose 99 70 - 100 mg/dL LAB CHEMISTRY METHOD 05/18/2025 3:28 PM [facility] BUN 21 5 - 25 mg/dL LAB CHEMISTRY METHOD 05/18/2025 3:28 PM [facility] Creatinine 1.18(H) 0.50 - 1.10 mg/dL LAB CHEMISTRY METHOD 05/18/2025 3:28 PM [facility] eGFR 49(L) >=60 mL/min/1. 73m2 LAB CHEMISTRY METHOD 05/18/2025 3:28 PM [facility] Comment:Calculation based on the Chronic Kidney Disease Epidemiology Collaboration (CKD-EPI) equation refit without adjustment for race. BUN/Creatinine Ratio 17.8 LAB CHEMISTRY METHOD 05/18/2025 3:28 PM [facility] Calcium 10.2 8.5 - 10.5 mg/dL LAB CHEMISTRY METHOD 05/18/2025 3:28 PM [facility] AST (SGOT) 49(H) 10 - 42 unit/L LAB CHEMISTRY METHOD 05/18/2025 3:28 PM [facility] ALT (SGPT) 43 10 - 60 unit/L LAB CHEMISTRY METHOD 05/18/2025 3:28 PM [facility] Alkaline Phosphatase 96 42 - 121 unit/L LAB CHEMISTRY METHOD 05/18/2025 3:28 PM [facility] Total Protein 7.1 6.0 - 8.0 g/dL LAB CHEMISTRY METHOD 05/18/2025 3:28 PM [facility] Albumin 3.7 3.2 - 5.0 g/dL LAB CHEMISTRY METHOD 05/18/2025 3:28 PM [facility] Total Bilirubin 0.6 0.0 - 1.4 mg/dL LAB CHEMISTRY METHOD 05/18/2025 3:28 PM [facility] Blood Venous blood specimen / Unknown Venipuncture / Unknown 05/18/2025 11:29 AM EDT 05/18/2025 11:29 AM EDT Result [facility] Tracee Chavez MD LAB BLOOD ORDERABL ES Final Result [facility] [address] [place] [address], [place] [phone] * ECG (04/21/2025 9:32 AM EDT) Result [facility] Historical Provider ECG ORDERABLES Final Res ult * CT Abdomen Pelvis w Contrast (04/21/2025 9:29 AM EDT) Only the most recent of2 resultswithin the time period is included. Anatomical Region Laterality Modality Body Computed Tomogra phy Result [facility] Provider IMG CT PROCEDURES Final R esult * XR Chest 1 View (04/21/2025 9:23 AM EDT) Anatomical Region Laterality Modality Body Radiographic Tammy ging Result [facility] Historical Provider IMG XR PROCEDURES Final R esult * US Abdomen Limited (04/21/2025 9:20 AM EDT) Only the most recent of2 resultswithin the time period is included. Anatomical Region Laterality Modality Body Ultrasound Result [facility] Historical Provider IMG US PROCEDURES Final R esult * External CT Report (04/20/2025 9:07 AM EDT) Anatomical Region Laterality Modality Computed Tomogra phy Result [facility] Historical Provider IMG CT PROCEDURES Final R esult * MG [...] is recommended in 1 year. MAMMO LOCATION: [facility], [address] [place] [address], [address], . . -------- FINAL REPORT -------- Dictated By: Arlet Howard Dictated Date: 03/05/2025 10:05 ET Assigned Physician: Arlet Howard Reviewed and Electronically Signed By: Arlet Howard Signed Date: 03/05/2025 10:08 ET Workstation ID: [id number] Transcribed By: Self Edit Transcribed Date: 03/05/2025 [...] is recommended in 1 year. MAMMO LOCATION: [facility], [address] [place] [address], [phone], . . -------- FINAL REPORT -------- Dictated By: Arlet Howard Dictated Date: 03/05/2025 10:05 ET Assigned Physician: Arlet Howard Reviewed and Electronically Signed By: Arlet Howard Signed Date: 03/05/2025 10:08 ET Workstation ID: [id number] Transcribed By: Self Edit Transcribed Date: 03/05/2025 10:05 ET us Tracee Chavez MD IMG BI PROCEDURES Final Result * (ABNORMAL) Lipid panel with reflex to direct LDL (11/30/2024 10:26 AM EDT) Cholesterol 253(H) 0 - 200 mg/dL LAB CHEMISTRY METHOD 11/30[facility]2024 [facility] Triglycerides 175(H) 0 - 150 mg/dL LAB CHEMISTRY METHOD 11/30/2024 1:25 PM [facility] HDL 30(L) >=40 mg/dL LAB CHEMISTRY METHOD 11/30/2024 1:25 PM [facility] LDL Calculated 188(H) 0 - 100 mg/dL LAB CHEMISTRY METHOD 11/30/2024 1:25 PM [facility] VLDL Cholesterol Richard 35 mg/dL LAB CHEMISTRY METHOD 11/30/2024 1:25 PM [facility] Non HDL Chol. (LDL+VLDL) 223(H) <145 mg/dL LAB CHEMISTRY METHOD 11/30/2024 1:25 PM [facility] Chol/HDL Ratio 8.4(H) 0.0 - 4.4 LAB CHEMISTRY METHOD 11/30/2024 1:25 PM [facility] Blood Venous blood specimen / Unknown Venipuncture / Unknown 11/30/2024 10:26 AM EDT 11/30/2024 10:26 AM EDT us Tracee Chavez MD LAB BLOOD ORDERABL ES Final Result [facility] [address] [place] [address], [place] [phone] * External Cologuard (FIT-DNA) Report (06/21/2024) us [...] IMPRESSION: IMPRESSION: Osteoporosis by WHO criteria. [facility] Department of Internal Medicine recommends using National [...] IMPRESSION: IMPRESSION: Osteoporosis by WHO criteria. The [facility] Department of Internal Medicine recommendsusing National Osteoporosis [...] alternative screening schedule based on sydney Guerra., [facility] 2011 for patients with osteopenia (based on hip BMD T-score) is as follows: * advanced osteopenia (T scores -2.00 to -2.49), BMD testing every year * moderate osteopenia (T scores -1.50 to -1.99), BMD testing every 5years mild osteopenia or normal BMD (T scores -1.50 and higher), BMD testingevery 15 years Hattie GONZALEZ IMG DXA PROCEDURES Final Result * Hepatitis C Screening (04/04/2013) [facility] Hepatitis C Screening abstracted Historical Provider HEALTH MAINTENANCE Final Result from Last 3 Months or Most Recently Relevant to Health Maintenance Insurance [employer] Care Teams Program Writer Relationship Specialty Start Date End Date Tracee Chavez MD [address] [place] [phone] PCP - General Internal Medicine 03/11/22
--- OUTSIDE RECORDS SUMMARY | 2025-06-08 13:34 | XMS_ITS | Encounter Summary ---
Author Organization [facility] Address [address] [place] [address] Care Team Providers Care Manager Oracle Name Role Phone Tracee Chavez MD Primary Care Prov ider Encounter Details Date Type Department Care Team ([facility] st Contact Info) Description 10/31/2024 Lab Requisition [facility] - Main Lab [address] [facility] [place] [phone] Ruthy Nguyen NP [address] [facility] [address] [place] [address] Urinary tract infection, site not specified Social [...] your loved ones. For example, child and adolescent psychologist or elderly care for an older adult? [...] Description 08/10/2025 9:20 AM EST Office Visit [facility] [address] [facility] [address] [place] [address] Federico Jackson MD [address] [place] [address] Dr [address] [place] [phone] 09/03/2025 1:00 PM EST Office Visit Adult Medicine [facility] [address] [place], [place] [phone] Tracee Chavez MD [address] [place], [place] 01/25/2026 11:00 AM EDT Consult Gastroenterology - [address] [phone] Fela Clemens NP [address] [address] documented as of this encounter Procedures Procedure Name Priority Date/Time Associated Diagnosis Comments BACTERIAL IDENTIFICATION AND SUSCEPTIBILITY, AEROBIC Routine 10/30/2024 12:00 AM EDT Urinary tract infection, site not specified documented in this encounter Results * (ABNORMAL) Bacterial identification and susceptibility, aerobic (10/30/2024 12:00 AM EDT) Culture, Bacterial ID and Sensitivity Escherichia coli(A) GIDEON 11/01/2024 8:46 AM EDT [facility] Other Urine specimen from urethra [...] GIDEON <=20 ug/ml: Susceptible us Ruthy Nguyen [facility] MICROBIOLOGY - GENERA L ORDERABLES Final Result [facility] ([facility]) [facility] [address] [place] [address], documented in this encounter Visit Diagnoses Diagnosis Urinary tract infection, site not specified documented in this encounter Additional Health Concerns Assessment Noted Time PHQ-9 Depression Total Score: 2 10/13/19 25 11:12 AM EDT documented as of this encounter Care Teams Manager Oracle Relationship Specialty Start Date End Date Tracee Chavez MD [address] [place] [phone] PCP - General Internal Medicine 03/11/22 documented as of this encounter
== END 2025-06-08 14:02 | disposition home or self-care (01) ==
PROVIDERS: PCP Internal Medicine; Visit Provider Nurse Practitioner Family
DX: N30.01 Acute cystitis with hematuria (principal); Z13.9 Encounter for screening, unspecified

== ENCOUNTER → 2025-06-08 13:18 | Outpatient (BNVA) | payer MEDICARE, SELFPAY | PROVIDERS: PCP Internal Medicine; Visit Provider Nurse Practitioner Family | DX: N30.01 Acute cystitis with hematuria (principal) | CPT/HCPCS: 81003; 99212 ==